=== PATIENT | female | born 1955 | race Caucasian/White ===

== ENCOUNTER → 2016-10-01 | Outpatient (CLI) | payer SELFPAY ==
[~2016-10-01] MED LIST: ENOX40IN SQ; HYDR-5688 PO
== END | disposition home or self-care (01) ==
LOC: C.LAB 11:08
PROVIDERS: ATTEND Family Medicine

== ENCOUNTER → 2016-11-09 | Outpatient (CLI) | payer BC | END | disposition home or self-care (01) | LOC: C.RDSM 08:20 | PROVIDERS: ATTEND Physical Medicine & Rehabilitation Sports Medicine | DX: S83.272D Complex tear of lateral meniscus, current injury, left knee, subsequent encounter (principal); X58.XXXD Exposure to other specified factors, subsequent encounter; M17.12 Unilateral primary osteoarthritis, left knee; M25.561 Pain in right knee ==

== ENCOUNTER → 2017-11-15 | Outpatient (CLI) | payer BC | END | disposition home or self-care (01) | LOC: C.PAPS 09:46 | PROVIDERS: ATTEND Obstetrics & Gynecology | DX: Z01.419 Encounter for gynecological examination (general) (routine) without abnormal findings (principal) ==

== ENCOUNTER → 2017-11-22 | Outpatient (CLI) | payer BC | END | disposition home or self-care (01) | LOC: C.RDSM 15:32 | PROVIDERS: ATTEND Physical Medicine & Rehabilitation Sports Medicine | DX: M17.12 Unilateral primary osteoarthritis, left knee (principal) ==

== ENCOUNTER 2021-02-03 17:10 | Inpatient (IN) ==
[2021-02-03] MEDS ORDERED: HYDROmorphone INJ 0.5 MG/0.5 ML SYR IV STA (18:57)
[2021-02-03] MEDS ORDERED: ONDANSETRON INJ 2 MG/ML 2 ML VIAL IV STA (18:59)
[2021-02-03] MEDS ORDERED: SODIUM CHLORIDE 0.9% 1000ML 1,000 ML IV SCH (19:00)
[2021-02-03 19:35] LABS: Basophils # (auto) 0.01 K/uL (0-0.2); Basophils % (auto) 0.1 %; Hematocrit (blood only) 43.8 % (37-47); Hemoglobin 15.2 g/dL (12.0-16.0); Immature Granulocytes # (auto) 0.05 K/uL (0.00-0.02); Immature Granulocytes % (auto) 0.3 %; Lymphocytes # (auto) 1.05 K/uL (1.2-3.4); Lymphocytes % (auto) 6.8 %; Mean Corpuscular Hemoglobin 31.4 pg (25-34); Mean Corpuscular Hgb Conc 34.7 g/dL (32-36); Mean Corpuscular Volume 90.5 fL (80-100); Mean Platelet Volume 10.4 fL (7.4-10.4); Monocytes # (auto) 0.51 K/uL (0.11-0.59); Monocytes % (auto) 3.3 %; Neutrophils # (auto) 13.88 K/uL (1.4-6.5); Neutrophils % (auto) 89.5 %; Platelet Count 242 K/uL (130-400); RDW Coefficient of Variation 13.3 % (11.5-14.5); Red Blood Count 4.84 M/uL (4.2-5.4)
[2021-02-03 19:52] LABS: Alanine Aminotransferase 46 U/L (12-78); Albumin Level 4.3 gm/dl (3.4-5.0); Aspartate Aminotransferase 36 U/L (15-37); BUN Creatinine Ratio 18.2 (10-20); Blood Urea Nitrogen 11 mg/dl (7-18); Carbon Dioxide 30 mmol/L (21-32); Chloride 105 mmol/L (98-107); Est GFR (African American) 111.5 ml/min; Est GFR (Non-African American) 96.2 ml/min; Glucose 130 mg/dl (70-99); Potassium 4.1 mmol/L (3.5-5.1); Sodium 138 mmol/L (136-145)
[2021-02-03 19:54] LABS: Albumin Globulin Ratio 1.1 (0.9-2); Alkaline Phosphatase 106 U/L (45-117); Bilirubin,Total 0.6 mg/dl (0.2-1); Globulin 3.9 gm/dl (2.5-4.0); Total Protein 8.2 gm/dl (6.4-8.2)
--- NOTE | 2021-02-03 20:22 | XRay Report ---
XR chest 1V portable HISTORY: 65 years-old Female Trauma acute chest trauma COMPARISON: CTA chest 07/02/2015, chest radiograph 08/20/2007 TECHNIQUE: Supine AP view of the chest FINDINGS: The cardiomediastinal and hilar silhouettes are within normal limits. No pneumothorax, pleural effusi on or overt pulmonary edema. There is a questioned 1.7 cm nodular opacity of the right upper lung. De generative changes of the shoulders and spine. IMPRESSION: 1. No acute intrathoracic abnormality. 2. Ill-defined 1.7 cm nodular opacity of the right upper lung may be artifactual or representing a pu lmonary nodule. This could be correlated with follow-up PA and lateral views of the chest. ACT 112: Negative or not required by law. The above report was generated using voice recognition software. It may contain grammatical, syntax o r spelling errors. Electronically signed by: Corbin Carson M.D. 02/03/2021 8:21 PM
--- NOTE | 2021-02-03 20:26 | XRay Report ---
XR knee RT 1 or 2V routine HISTORY: 65 years-old Female R knee pain chronic right knee pain COMPARISON: Right knee radiographs 06/12/2019 TECHNIQUE: 2 views of the right knee FINDINGS: Small to moderate right knee joint effusion. Mild to moderate medial and patellofemoral with mild lat eral compartment osteoarthritis. No acute fracture, dislocation or opaque foreign body. IMPRESSION: 1. Small to moderate joint effusion without acute fracture or dislocation. 2. Tricompartmental osteoarthritis. ACT 112: Negative or not required by law. The above report was generated using voice recognition software. It may contain grammatical, syntax o r spelling errors. Electronically signed by: Corbin Carson M.D. 02/03/2021 8:25 PM
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
[2021-02-03 22:37] LABS: Creatine Kinase 81 U/L (26-192)
[2021-02-04] MEDS ORDERED: NALOXONE HCL 0.4 MG/1 ML VIAL/CARP IV PRN (00:18)
[2021-02-04] MEDS ORDERED: MAGNESIUM HYDROXIDE SUSP 30 ML UDC PO PRN (00:18)
[2021-02-04] MEDS ORDERED: MoRPHine SULFATE 4 MG/ML 1 ML CARP\\VIAL IV PRN (00:18)
[2021-02-04] MEDS ORDERED: ACETAMINOPHEN 325 MG TAB PO PRN (00:18)
[2021-02-04] MEDS ORDERED: bisacodyL 10 MG SUPP PR PRN (00:18)
[2021-02-04] MEDS ORDERED: LORazepam 0.25 MG/0.5 ML VIAL IV PRN (00:18)
[2021-02-04 00:50] LABS: Appearance Urine Clear (Clear); Bilirubin Urine Negative (Negative); Blood Urine Negative (Negative); Color Urine Yellow; Glucose Urine UA Negative (Negative); Ketones Urine Negative (Negative); Leukocyte Esterase Urine Negative (Negative); Nitrite Urine Negative (Negative); Protein Urine Negative (Negative); Specific Gravity Urine 1.004 (1.000-1.030); Urobilinogen Urine Negative (Negative)
[2021-02-04] MEDS ORDERED: KETOROLAC TROMETHAMINE 15 MG/ML VIAL IV ONE (01:27)
[2021-02-04] MEDS: ONDANSETRON INJ 2 MG/ML 2 ML VIAL IV PRN ×3 (01:41→21:20)
[2021-02-04] MEDS: SODIUM CHLORIDE 0.9% 1000ML 1,000 ML IV SCH ×2 (01:41→20:09)
[2021-02-04] MEDS: MoRPHine SULFATE 2 MG/ML CARP IV PRN ×4 (01:45→21:20)
[2021-02-04] MEDS: LEVOTHYROXINE SODIUM 100 MCG TABLET PO SCH (05:44)
[2021-02-04 06:48] LABS: Basophils # (auto) 0.01 K/uL (0-0.2); Basophils % (auto) 0.2 %; Eosinophils # (auto) 0.05 K/uL (0-0.5); Eosinophils % (auto) 0.8 %; Hematocrit (blood only) 35.4 % (37-47); Hemoglobin 12.1 g/dL (12.0-16.0); Immature Granulocytes # (auto) 0.02 K/uL (0.00-0.02); Immature Granulocytes % (auto) 0.3 %; Lymphocytes # (auto) 1.38 K/uL (1.2-3.4); Lymphocytes % (auto) 22.3 %; Mean Corpuscular Hemoglobin 30.9 pg (25-34); Mean Corpuscular Hgb Conc 34.2 g/dL (32-36); Mean Corpuscular Volume 90.3 fL (80-100); Mean Platelet Volume 10.6 fL (7.4-10.4); Monocytes # (auto) 0.28 K/uL (0.11-0.59); Monocytes % (auto) 4.5 %; Neutrophils # (auto) 4.46 K/uL (1.4-6.5); Neutrophils % (auto) 71.9 %; Platelet Count 213 K/uL (130-400); RDW Coefficient of Variation 13.4 % (11.5-14.5); RDW Standard Deviation 44.3 fL (36.4-46.3); Red Blood Count 3.92 M/uL (4.2-5.4)
[2021-02-04 07:12] LABS: Estimated Average Glucose 100 mg/dl; Hemoglobin A1C 5.1 % (4.5-5.6)
[2021-02-04 07:14] LABS: BUN Creatinine Ratio 17.8 (10-20); Calcium 8.2 mg/dl (8.5-10.1); Creatinine Clr Calc Pharmacy 129.4 ml/min; Est GFR (African American) 127.7 ml/min; Est GFR (Non-African American) 110.2 ml/min; Potassium 3.6 mmol/L (3.5-5.1)
--- NOTE | 2021-02-04 07:59 | XRay Report ---
XR chest 2V PA/lateral CLINICAL HISTORY: abn pcxr COMPARISON STUDY: February 03, 2021 FINDINGS: No pneumothorax. No pleural effusion. No large infiltrates or consolidative lesions are seen. Recently seen nodular opacity at the right up per lung appear less conspicuous on current exam and might represent superimposition of structures. S kinfold is projecting to the anatomical region of the right lung and right upper hemiabdomen. Cardiomediastinal silhouette is within normal limits in size. No significant pulmonary vascular congestion.. Osseous structures: Mild degenerative changes of the spine. IMPRESSION: 1. No large infiltrates or consolidative lesions are seen. 2. Recently seen nodular opacity at the right upper lung region appear less conspicuous than on prio r study and might be related to superimposition of structures. Please correlate above-mentioned findi ngs with prior history of pulmonary abnormalities. Please note that plain radiography has limited anneliese lity for pulmonary nodule evaluation. ACT 112: Negative or not required by law. The above report was generated using voice recognition software. It may contain grammatical, syntax o r spelling errors. Electronically signed by: Terri Davison DO 02/04/2021 7:58 AM
--- NOTE | 2021-02-04 08:04 | XRay Report ---
XR hip RT 1V CLINICAL HISTORY: fracture, pls do shoot thru lateral right hip COMPARISON: February 03, 2021 at 20:08 hours DISCUSSION: Recently seen fracture of the right hip is not well visualized due to overlying soft tissue and clot [place]. IMPRESSION: As above. ACT 112: Negative or not required by law. The above report was generated using voice recognition software. It may contain grammatical, syntax o r spelling errors. Electronically signed by: Terri Davison DO 02/04/2021 8:03 AM
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
--- NOTE | 2021-02-04 13:45 | Anesthesiology Consultation ---
Date of Service February 04, 2021 Assessment & Plan (1) Encounter for pre-operative examination: Chart Review Chart Review: Acceptable Risk for Surgery and Patient NOT seen in Pre Admission Testing Consults Requested none History Surgery Operation Date: 02/04/21 07:00 Proposed Procedures p Right Hip Cannulated Screws Versus - Jacob Justin MD s Hemiarthroplasty - Jacob Justin MD Height/Weight Height: 5 ft 5 in Weight: 62.8 kg Allergies Allergy/AdvReac Type Severity Reaction Status Date / Time No Known Allergies Allergy Mild Verified 02/03/21 19:57 Medications Home Medications Medication Instructions Recorded Confirmed Last Taken estradiol 1 g PV 2XWK #42.5 gm 11/12/20 02/03/21 02/02/21 cholecalciferol (vitamin D3) 125 mcg PO QPM 12/10/20 02/03/21 12/05/20 [Vitamin D3] levothyroxine [Synthroid] 100 mcg PO QAM 02/03/21 02/03/21 02/03/21 vitamins A,C,V-[id number] [Eye 2 tab PO QAM 02/03/21 02/03/21 02/01/21 Multivitamin] Active Medications Generic Name Dose Route Start Last Admin Trade Name Freq PRN Reason Stop Dose Admin Sodium Chloride 1,000 mls @ 60 mls/hr 02/04/21 00:18 02/04/21 01:41 Nss 1000ml IV 03/06/21 00:17 60 mls/hr .[id number] NEPTALI Administration Levothyroxine Sodium 100 mcg 02/04/21 06:30 02/04/21 05:44 Levothyroxine Sodium 100 Mcg Tablet PO 03/06/21 06:29 100 mcg DAILYBB NEPTALI Administration Morphine Sulfate 2 mg 02/04/21 01:36 02/04/21 09:49 Morphine Sulfate 2 Mg/Ml Carp IV 02/18/21 01:35 2 mg Q4H PRN Administration Pain Ondansetron HCl 4 mg 02/04/21 01:08 02/04/21 09:50 Ondansetron Inj 2 Mg/Ml 2 Ml Vial IV 03/06/21 01:07 4 mg Q6H PRN Administration nv Past Medical History Medical History Colon polyps DVT (deep venous thrombosis) IN HER 20'S WITH BCP'S H/O therapeutic radiation Osteoporosis Temporomandibular joint disorder BILAT-LOCKS WHEN OUTSIDE IN THE COLD Thyroid cancer Past Family History Family History Father No problems noted. Mother No problems noted. Sister Breast cancer Father Cancer ESOPHAGEAL CANCER Grandmother Breast cancer Past Surgical History Surgical History H/O colonoscopy H/O hernia repair B/L inlingual 2018 [place] History of anesthesia reaction PONV AND LOW BP POST OP 2019 WITH HERNIA REPAIRS History of arthroscopy LEFT KNEE MENISCUS REPAIR 2016 History of colonoscopy History of thyroid surgery 2017 S/P laparoscopic cholecystectomy (12/19/20) Laparoscopic Cholecystectomy; enterolysis - Contreras Martinez, DO Social History Smoking Status: Never smoker Hx Alcohol Use: No alcohol intake frequency: other Hx Substance Use: No Physical Exam Vital Signs Last Vital Signs Temp 37.4 C 02/04/21 11:25 Pulse 62 02/04/21 11:25 Resp 16 02/04/21 11:25 BP 105/56 L 02/04/21 11:25 Pulse Ox 94 02/04/21 11:25 Testing Laboratory Results 02/04/21 05:57 02/04/21 05:57 Hemoglobin A1c 5.1 % (4.5-5.6) 02/03/21 19:24 Urine Color Yellow 02/04/21 00:24 Urine Appearance Clear (Clear) 02/04/21 00:24 Urine pH 7.0 (4.5-7.5) 02/04/21 00:24 Ur Specific [place] 1.004 (1.000-1.030) 02/04/21 00:24 Urine Protein Negative (Negative) 02/04/21 00:24 Urine Glucose (UA) Negative (Negative) 02/04/21 00:24 Urine Ketones Negative (Negative) 02/04/21 00:24 Urine Nitrite Negative (Negative) 02/04/21 00:24 Ur Leukocyte Esterase Negative (Negative) 02/04/21 00:24 Blood Type A Positive 02/04/21 05:57 Antibody Screen NEGATIVE 02/04/21 05:57 Other Testing Electrocardiogram Date: 12/12/20 Findings: + SB @ (54bpm) *unconfirmed
[2021-02-04] MEDS ORDERED: PROPOFOL IV EMULSION 10 MG/ML 20 ML VIAL IV ONE ×3 (15:09→17:41)
[2021-02-04] MEDS ORDERED: LIDOCAINE 2% 2 ML VIAL/AMP(20MG/ML) INFIL ONE (15:09)
[2021-02-04] MEDS ORDERED: MIDAZOLAM HCL 1 MG/ML 2ML VIAL ONE (15:10)
[2021-02-04] MEDS ORDERED: fentaNYL citrate 100 MCG/2 ML VIAL ONE (15:10)
[2021-02-04] MEDS ORDERED: BUPIVACAINE 0.5 % 5 MG/1 ML PF 10ML VIAL ONE (15:16)
[2021-02-04] MEDS ORDERED: THROMBIN FOR SOLN 20000 UNIT KIT ONE (15:26)
[2021-02-04] MEDS ORDERED: LIDOCAINE 1% LOCAL 20 ML VIAL ONE (15:26)
[2021-02-04] MEDS ORDERED: BUPIVACAINE 0.5 % 5 MG/1 ML MPF 30ML VIAL ONE (15:26)
[2021-02-04] MEDS ORDERED: ATROPINE SULFATE 0.1 MG/ML 10ML SYR IV PRN (15:53)
[2021-02-04] MEDS ORDERED: ePHEDrine sulfate 50 MG/ML AMP IV PRN (15:53)
[2021-02-04] MEDS ORDERED: fentaNYL citrate 100 MCG/2 ML VIAL IV PRN (15:53)
[2021-02-04] MEDS ORDERED: ONDANSETRON INJ 2 MG/ML 2 ML VIAL IV PRN (15:53)
[2021-02-04] MEDS ORDERED: KETAMINE 50 MG/5 ML SYRINGE ONE (15:58)
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
--- NOTE | 2021-02-04 18:59 | Anesthesiology Progress Note ---
Date of Service February 04, 2021 Anesthesia Post Procedure Vital Signs Vital Signs: Temp Pulse Pulse Pulse Resp BP BP 02/04/21 18:50 72 15 101/49 L 02/04/21 18:40 74 20 105/69 02/04/21 18:32 97.3 F L 80 16 123/49 L 02/04/21 15:43 99.9 F H 66 18 121/48 L 02/04/21 15:25 99.7 F H 61 16 100/58 L 02/04/21 11:25 99.3 F 62 16 105/56 L 02/04/21 07:40 99.3 F 65 24 103/62 02/04/21 04:18 02/04/21 00:30 99.0 F 68 16 114/78 02/04/21 00:25 99.0 F 68 18 113/71 02/03/21 23:30 65 19 119/54 L 02/03/21 23:00 76 22 138/61 02/03/21 22:57 66 24 02/03/21 22:01 68 17 02/03/21 22:00 66 18 135/56 L 02/03/21 21:31 68 18 02/03/21 21:30 71 16 132/50 L 02/03/21 21:01 72 14 02/03/21 21:00 71 18 143/47 H 02/03/21 20:31 68 15 02/03/21 20:30 69 21 142/54 H 02/03/21 20:01 67 14 02/03/21 20:00 66 20 139/60 02/03/21 19:31 68 15 02/03/21 19:30 68 18 136/71 02/03/21 19:21 72 18 02/03/21 19:16 71 20 134/72 Pulse Ox Pulse Ox 02/04/21 18:50 97 02/04/21 18:40 96 02/04/21 18:32 96 02/04/21 15:43 94 02/04/21 15:25 93 02/04/21 11:25 94 02/04/21 07:40 95 95 02/04/21 04:18 98 02/04/21 00:30 98 02/04/21 00:25 98 98 02/03/21 23:30 98 02/03/21 23:00 97 02/03/21 22:57 97 02/03/21 22:01 99 02/03/21 22:00 97 02/03/21 21:31 99 02/03/21 21:30 98 02/03/21 21:01 98 02/03/21 21:00 98 02/03/21 20:31 97 02/03/21 20:30 97 02/03/21 20:01 98 02/03/21 20:00 98 02/03/21 19:31 99 02/03/21 19:30 98 02/03/21 19:21 100 02/03/21 19:16 98 Pain Intensity Right Hip: Pain Intensity: 2 Transfer of Care Handoff Completed per policy Notes Mental Status: alert / awake / arousable and participated in evaluation Patient Amnestic to Procedure: Yes Nausea / Vomiting: adequately controlled Pain: adequately controlled Airway Patency, RR, SpO2: stable & adequate BP & HR: stable & adequate Hydration State: stable & adequate Neuraxial Anesthesia: was administered and sensory block is resolving Anesthetic Complications: no major complications apparent and Pt Satisfied with anesthetic care
[2021-02-04] MEDS ORDERED: SODIUM CHLORIDE 0.9% 1000ML 1,000 ML IV ONE (20:05)
[2021-02-04] MEDS: CHOLECALCIFEROL 1,000 UNITS 25 MCG TAB PO SCH (20:21)
--- NOTE | 2021-02-04 22:35 | Fluoroscopy Report ---
INTRAOPERATIVE RADIOGRAPHS CLINICAL HISTORY: Open reduction and internal fixation of the right proximal femur. Fluoroscopy time: 148 seconds. FINDINGS: 2 spot fluoroscopic views of the right proximal femur are correlated with radiographs dated 02/03/2021. 3 cortical lag screws have been placed transfixing a subcapital fracture. Near-anatomic al ignment is maintained. The orthopedic hardware appears intact. IMPRESSION: Intraoperative images from open reduction and internal fixation of the right proximal fem ur as above. Electronically signed by: Igor Mike M.D. 02/04/2021 10:33 PM
[2021-02-05] MEDS: ceFAZolin 1000MG 1,000 MG/7.5 ML SYR IV SCH ×2 (01:09→07:38)
[2021-02-05] MEDS: MoRPHine SULFATE 2 MG/ML CARP IV PRN ×4 (01:42→17:08)
--- NOTE | 2021-02-05 05:48 | Electrocardiogram Report ---
Test Reason : Blood Pressure : / mmHG Vent. Rate : 067 BPM Atrial Rate : 067 BPM P-R Int : 144 ms QRS Dur : 086 ms QT Int : 408 ms P-R-T Axes : 060 000 028 degrees QTc Int : 431 ms Normal sinus rhythm Normal ECG When compared with ECG of 12-DEC-2020 08:45, No significant change was found Confirmed by Darien Knox ([id number]) on 02/05/2021 5:47:49 AM Referred By: REFERRED SELF Confirmed By:Darien Knox
[2021-02-05] MEDS: LEVOTHYROXINE SODIUM 100 MCG TABLET PO SCH (06:22)
[2021-02-05] MEDS: ONDANSETRON INJ 2 MG/ML 2 ML VIAL IV PRN (06:40)
[2021-02-05 06:42] LABS: Basophils # (auto) 0.02 K/uL (0-0.2); Basophils % (auto) 0.3 %; Eosinophils # (auto) 0.04 K/uL (0-0.5); Eosinophils % (auto) 0.5 %; Hemoglobin 10.9 g/dL (12.0-16.0); Immature Granulocytes # (auto) 0.01 K/uL (0.00-0.02); Immature Granulocytes % (auto) 0.1 %; Lymphocytes # (auto) 1.24 K/uL (1.2-3.4); Lymphocytes % (auto) 16.1 %; Mean Corpuscular Hemoglobin 30.4 pg (25-34); Mean Corpuscular Volume 92.2 fL (80-100); Mean Platelet Volume 10.6 fL (7.4-10.4); Monocytes # (auto) 0.35 K/uL (0.11-0.59); Monocytes % (auto) 4.6 %; Neutrophils # (auto) 6.02 K/uL (1.4-6.5); Neutrophils % (auto) 78.4 %; Platelet Count 200 K/uL (130-400); RDW Coefficient of Variation 13.4 % (11.5-14.5); RDW Standard Deviation 45.1 fL (36.4-46.3); Red Blood Count 3.58 M/uL (4.2-5.4); White Blood Count 7.68 K/uL (4.8-10.8)
[2021-02-05 07:23] LABS: BUN Creatinine Ratio 14.9 (10-20); Calcium 7.7 mg/dl (8.5-10.1); Creatinine Clr Calc Pharmacy 132.8 ml/min; Est GFR (African American) 128.8 ml/min; Est GFR (Non-African American) 111.2 ml/min; Potassium 3.6 mmol/L (3.5-5.1)
[2021-02-05] MEDS: ENOXAPARIN INJ 40 MG/0.4 ML SYR SQ SCH (07:47)
[2021-02-05] MEDS: CEROVITE ADV FORMULA TAB PO SCH ×2 (07:49→08:00)
--- NOTE | 2021-02-05 11:01 | Progress Notes ---
DATE: 02/05/2021 SUBJECTIVE: Rani is out of bed, in the chair. She is awake and alert. She does note pain in her thigh when she moves her leg and sometimes some spasms. Otherwise, she is doing well. OBJECTIVE: VITAL SIGNS: She is afebrile. Her vital signs are stable. Her urine output is adequate. EXTREMITIES: Physical examination demonstrates some tenderness of the thigh, but no significant swel ling or tenseness. The dressing is clean and dry. She cannot extend her knee secondary to thigh dis comfort. She does have 5/5 ankle and toe plantar flexion, dorsiflexion, and foot eversion strength. Has normal sensation and a 1+ posterior tibial pulse. Swelling is minimal. LABORATORY DATA: White count 7, hemoglobin 11, hematocrit 33, platelets are 200. PRP noted. Vitamin D level is 58, checked back in November. IMPRESSION: Postoperative day #1, status post in situ percutaneous screws for a valgus impacted nond isplaced femoral neck fracture of the right hip. PLAN: We discussed rehabilitation and milestones. She will supply her DEXA scan done last year. PT today. Partial weightbearing. She is on Lovenox for DVT prophylaxis. We will go ahead and discont inue her Nunez catheter and also order a femur x-ray to evaluate any other sources of her thigh disco mfort. I think that this is coming from her hip. She has received a routine course of postoperative IV antibiotics. Her pain is well controlled. Plan at this point is likely home with home health [facility] and PT. Job ID: [id number]
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
[2021-02-05] MEDS: FAMOTIDINE 10 MG TABLET PO SCH (21:04)
[2021-02-05] MEDS: CHOLECALCIFEROL 1,000 UNITS 25 MCG TAB PO SCH (21:04)
[2021-02-05] MEDS: traMADol HCL 50 MG TABLET PO PRN (21:04)
[2021-02-06] MEDS: traMADol HCL 50 MG TABLET PO PRN ×2 (05:59→21:13)
[2021-02-06] MEDS: LEVOTHYROXINE SODIUM 100 MCG TABLET PO SCH (06:00)
[2021-02-06] MEDS: ONDANSETRON INJ 2 MG/ML 2 ML VIAL IV PRN (06:00)
[2021-02-06] MEDS: ENOXAPARIN INJ 40 MG/0.4 ML SYR SQ SCH (09:25)
[2021-02-06] MEDS: CEROVITE ADV FORMULA TAB PO SCH (09:26)
[2021-02-06] MEDS: FAMOTIDINE 10 MG TABLET PO SCH ×2 (09:27→21:13)
[2021-02-06] MEDS ORDERED: POLYETHYLENE (MIRALAX) 17 GM PACK PO PRN (12:14)
[2021-02-06] MEDS ORDERED: MAGNESIUM HYDROXIDE SUSP 30 ML UDC PO PRN (12:15)
[2021-02-06] MEDS: LIDOCAINE 5% 1 PATCH TD SCH (13:23)
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
--- NOTE | 2021-02-06 14:01 | Orthopedic Progress Note ---
Date of Service February 06, 2021 Assessment & Plan (1) Fracture of femoral neck, right, closed: Continue out of bed - PWB RLE Ice and elevation as needed. Continue PT/OT Lovenox 40mg SQ daily for 4 weeks after surgery. Obtain CBC weekly while on Lovenox. Regular diet. Dressings changed today. Dr. Justin present for today's visit. Okay from orthopedic standpoint for discharge to her home when medically stable - patient wishes to be discharged on Wednesday. (2) Quadriceps contusion: Continue ice Encouraged cotinued ROM of right hip and knee Allowed for straight leg raises, quad sets and PT exercises as instructed. This should improve with time Lidoderm patch PRN Sonny bandage to thigh as needed for comfort. Will continue to follow as outpatient. Femur xrays show no fracture. Admission and Anticipated Discharge Date Admission Date: February 03, 2021 Subjective Patient is resting in bed. No significant groin pain, but pain in right quad. Has lidoderm patch in place. States that she is able to move her leg and bend her knee a little better today than yesterday. Has been applying ice. Able to ambulate, but pain with weight bearing in the front of her thigh. No posterior thigh pain. Physical Exam Physical Exam: Right hip incision clean, dry and intact. Emerald retained and intact. Mild-moderate right thigh and leg edema. Full ankle ROM without pain. Distal sensation and pulses normal. Able to flex her knee to about 50-60 degrees and then extend her right knee and keep in the air - does reproduce quad pain but able to hold independently. NOntender at right knee or patella. Distal quad tendon intact. Tenderness with palpation of anterior thigh/mid- proximal quadriceps muscle. Nontender right ischial tuberosity. NO evidence of seroma or hematoma right thigh. Also some ecchymosis developing throughout thig h. Results & Data ([facility]) Vital Signs (Past 12 Hours) Vital Signs Temp Pulse Resp BP Pulse Ox Pulse Ox 02/06/21 07:37 37.1 C 63 16 119/69 95 02/06/21 04:05 92 Diagnostic Findings XR femur RT 2V routine HISTORY: 65 years-old Female pain acute fracture of the right femur. Status post ORIF COMPARISON: Right hip radiograph 02/03/2021 TECHNIQUE: 2 views the right femur FINDINGS: Status post placement of 3 elongated cannulated screws within the right femoral neck fixating the acute transcervical fracture. There is persistent mild impaction without placement. Alignment appears unchanged. Lateral skin emerald are present along with expected postoperative soft tissue swelling and deep tissue air. No unexpected opaque foreign bodies. Osteoarthritis of the right knee. Moderate knee joint effusion. IMPRESSION: Status post ORIF of the acute right femoral neck fracture with expected postoperative changes.
[2021-02-06] MEDS: CHOLECALCIFEROL 1,000 UNITS 25 MCG TAB PO SCH (21:10)
[2021-02-07] MEDS: LEVOTHYROXINE SODIUM 100 MCG TABLET PO SCH (05:55)
[2021-02-07] MEDS: FAMOTIDINE 10 MG TABLET PO SCH (09:45)
[2021-02-07] MEDS: ENOXAPARIN INJ 40 MG/0.4 ML SYR SQ SCH (09:45)
[2021-02-07] MEDS: LIDOCAINE 5% 1 PATCH TD SCH (09:49)
[2021-02-07] MEDS: CEROVITE ADV FORMULA TAB PO SCH (09:49)
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
--- NOTE | 2021-02-07 16:15 | Progress Notes ---
Doing well. Improved mobility. Less quad pain and better function. She has done well with physical therapy. No labs today. Afebrile. Vital signs are stable. She is stable for discharge. We discus sed followup pain medication, what to come back for, DVT prophylaxis, home health, PT, nursing and wo und care. Job ID: [id number]
[2021-02-07] MEDS: MoRPHine SULFATE 2 MG/ML CARP IV PRN (16:57)
[2021-02-07] MEDS: ONDANSETRON INJ 2 MG/ML 2 ML VIAL IV PRN (16:59)
== END 2021-02-07 17:15 | disposition home health service (06) | DRG 482 ==
LOC: ED 17:10 → 3E 22:13 → SUATTDRO 22:13 → 3E 23:50

== ENCOUNTER 2024-08-08 22:18 | Observation (INO) ==
[2024-08-08] MEDS: METOPROLOL TARTRATE 1 MG/ML VIAL IV STA ×3 (22:44→23:32)
--- NOTE | 2024-08-08 22:44 | Emergency Department Note ---
History of Present Illness General Chief complaint: Cardiac Assessment Stated complaint: PT IN AFIB, [place] 190 Time Seen by Provider: 08/08/24 22:27 History of Present Illness This 69-year-old female with a recent diagnosis of A-fib on metoprolol and Eliquis since June presents the ER complaining of racing heart. Patient states when she was in [place] last month her heart rate dropped to the 30s and she called her legislative assistant and told her to cut back on her metoprolol. Patient states for the past week she has been sick and has been taking her Dulera and then today started Augmentin. She states she felt like her heart was racing and was concerned she is back in A-fib and came in. She states she has been symptomatic for the past 4 hours. Patient denies fever, chills, cough, congestion, flulike illness. She has not missed any doses of her Eliquis. No recent prednisone. Home Medications Medication Instructions Recorded Confirmed Type estradiol 0.01% (0.1 mg/gram) 1 g vaginal 2XWK #42.5 grams 12/09/23 08/09/24 Rx vaginal cream amoxicillin 875 mg-potassium 1 tab PO AMHS 08/08/24 08/08/24 History clavulanate 125 mg tablet mometasone-formoterol HFA 100 2 puff inhalation AMHS 08/08/24 08/09/24 History mcg-5 mcg/actuation aerosol inhaler (Dulera) apixaban 5 mg tablet (Eliquis) 5 mg PO AMHS 08/09/24 08/09/24 History azelastine 137 mcg (0.1 %) nasal 1 spray intranasal BID PRN Allergy 08/09/24 08/09/24 History spray Symptoms azithromycin 500 mg tablet 500 mg PO UD PRN RESCUE KIT 08/09/24 08/09/24 History cholecalciferol (vitamin D3) 50 50 mcg PO DAILY 08/09/24 08/09/24 History mcg (2,000 unit) tablet (Vitamin D3) levothyroxine 125 mcg tablet See Rx Instructions .Route .COMPLEX 08/09/24 08/09/24 History (Synthroid) melatonin 3 mg tablet 3 mg PO HS PRN Sleep 08/09/24 08/09/24 History metoprolol tartrate 25 mg tablet 12.5 mg PO AMHS 08/09/24 08/09/24 History mometasone 50 mcg/actuation HFA 1 inh inhalation UD 08/09/24 08/09/24 History aerosol inhaler (Asmanex HFA) prednisone 10 mg tablet 10 mg PO UD PRN RESCUE KIT 08/09/24 08/09/24 History vitamins A,C,U-unrk-pmoegd 4,296 2 cap PO QAM 08/09/24 08/09/24 History mcg-226 mg-90 mg capsule (PreserVision AREDS) Allergies Allergy/AdvReac Type Severity Reaction Status Date / Time doxycycline AdvReac Unknown possible Verified 12/09/23 10:50 cause of eosinophilic asthma Past Med/Surg History Problem List (Updated 08/08/24 @ 23:55 by Corinne Choe PA-C) Atrial fibrillation/flutter (Acute) Globus sensation Small intestinal bacterial overgrowth Diarrhea GERD (gastroesophageal reflux disease) Routine gynecological examination Quadriceps contusion Knee pain, right Fracture of femoral neck, right, closed Pain of right knee after injury (Acute) Closed intertrochanteric fracture of right femur (Acute) Encounter for pre-operative examination Pre-op evaluation Medical History Cardiac murmur Nausea and vomiting after administration of anesthetic agent Presence of pessary Uterine prolapse History of COVID-19 Eosinophilic asthma Chronic hoarseness Rectocele Osteoporosis Temporomandibular joint disorder DVT (deep venous thrombosis) H/O therapeutic radiation Colon polyps Thyroid cancer Surgical History S/P hardware removal History of laryngoscopy History of total right hip replacement History of surgery on extremity S/P laparoscopic cholecystectomy (12/19/20) History of arthroscopy History of colonoscopy History of anesthesia reaction H/O hernia repair History of thyroid surgery S/P left knee surgery Family History Father No problems noted. Mother No problems noted. 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 How many Children do You have: 1 Feels Safe at Home: Yes Assistive Devices: Contacts and Glasses Review of Systems A total of 10 systems reviewed and were otherwise negative Physical Exam Vital Signs Vital Signs - 24 hr 08/08/24 22:20 08/08/24 22:35 08/08/24 22:44 Temperature 36.5 C Temperature Source Temporal Artery Scan Pulse Rate 103 H 142 H 136 H Pulse Rhythm Respiratory Rate 16 Respiratory Effort / Characteristics Non-Labored Spontaneous Respiratory Depth Normal Respiratory Pattern Regular Blood Pressure 130/61 112/73 Blood Pressure Mean 84 Pulse Oximetry 97 Oxygen Delivery Method Room Air Sepsis Recent Fever Within 48 Hours No Sepsis New/Unexplained Change in Mental Status No Sepsis Action Taken by Nursing No Action Required 08/08/24 22:46 08/08/24 22:48 08/08/24 22:48 Temperature Temperature Source Pulse Rate 123 H 127 H Pulse Rhythm Regular Regular Respiratory Rate 18 16 Respiratory Effort / Characteristics Respiratory Depth Respiratory Pattern Blood Pressure Blood Pressure Mean Pulse Oximetry 97 98 Oxygen Delivery Method Room Air Room Air Sepsis Recent Fever Within 48 Hours Sepsis New/Unexplained Change in Mental Status Sepsis Action Taken by Nursing 08/08/24 22:48 08/08/24 23:00 08/08/24 23:32 Temperature Temperature Source Pulse Rate 146 H 133 H Pulse Rhythm Respiratory Rate Respiratory Effort / Characteristics Respiratory Depth Respiratory Pattern Blood Pressure 118/94 112/67 Blood Pressure Mean Pulse Oximetry 100 Oxygen Delivery Method Room Air Sepsis Recent Fever Within 48 Hours Sepsis New/Unexplained Change in Mental Status Sepsis Action Taken by Nursing 08/09/24 00:20 Temperature Temperature Source Pulse Rate 142 H Pulse Rhythm Respiratory Rate Respiratory Effort / Characteristics Respiratory Depth Respiratory Pattern Blood Pressure 118/80 Blood Pressure Mean Pulse Oximetry Oxygen Delivery Method Sepsis Recent Fever Within 48 Hours Sepsis New/Unexplained Change in Mental Status Sepsis Action Taken by Nursing VITALS: Vitals are noted on the nurse's note and reviewed by myself. Vital signs tachycardic GENERAL: Pleasant female, in no acute distress, nondiaphoretic, well-developed well-nourished. SKIN: Capillary reflex less than 2 seconds. HEENT: Normocephalic. PERRLA. EOMI. Nares patent. Mucous membranes moist. Neck is supple without nuchal rigidity. HEART: Tachycardic irregularly irregular LUNGS: Clear to auscultation bilaterally without wheezes, rales or rhonchi. No retractions or accessory muscle use. ABDOMEN: Positive bowel sounds x 4. Normal tympanic percussion. Soft, nontender, without masses or organomegaly. Patterson sign negative. No guarding or rebound tenderness. no CVA tenderness MUSCULOSKELETAL: No gross musculoskeletal defects. NEURO: Patient was alert and oriented to person place and time. No focal neurological deficits. Course Administered Medications Discontinued Medications Diltiazem HCl (Diltiazem Hcl 5 Mg/Ml 5 Ml Vial) 10 mg IV NOW STA Stop: 08/08/24 23:55 Last Admin: 08/09/24 00:01 Dose: 10 mg Documented By: ALEENA Co-signed By: JASPER Sodium Chloride (Nss) 500 mls @ 999 mls/hr IV .Q31M ONE Stop: 08/08/24 23:14 Last Infusion: 08/08/24 23:26 Dose: Infused Documented By: Admin: 08/08/24 22:46 Dose: 999 mls/hr Documented By: RADHA Metoprolol Tartrate (Metoprolol Tartrate 1 Mg/Ml Vial) 5 mg IV NOW STA Stop: 08/08/24 22:38 Last Admin: 08/08/24 22:44 Dose: 5 mg Documented By: [facility] Metoprolol Tartrate (Metoprolol Tartrate 1 Mg/Ml Vial) 5 mg IV NOW STA Stop: 08/08/24 22:52 Last Admin: 08/08/24 23:00 Dose: 5 mg Documented By: [facility] Metoprolol Tartrate (Metoprolol Tartrate 1 Mg/Ml Vial) 5 mg IV NOW STA Stop: 08/08/24 23:30 Last Admin: 08/08/24 23:32 Dose: 5 mg Documented By: SERGO Critical Care Time Critical Care Time: Yes Total Critical Care Time: 35 I have personally spent 35 minutes of critical care time in the direct management of this patient. This includes bedside care, interpretation of diagnostic studies, and testing, discussion with consultants, patient, and family members, and other required patient management activities. This 35 minutes is in excess of all separately billable procedures. Medical Decision Making Medical Records Attestation: I reviewed the patient's medical records. Home Medications Current Medication List: was personally reviewed by me Laboratory Data Attestation: I reviewed the patient's lab results. 08/08/24 22:40 08/08/24 23:50 Lab Results 08/08/24 08/08/24 Range/Units 22:40 23:50 WBC 9.06 (4.8-10.8) K/ul RBC 4.75 (4.20-5.40) M/uL Hgb 14.2 (12.0-16.0) g/dl Hct 41.5 (37.0-47.0) % MCV 87.4 (80.0-100.0) fL MCH 29.9 (25.0-34.0) pg MCHC 34.2 (32.0-36.0) g/dL RDW Std Deviation 40.0 (36.4-46.3) fL RDW Coeff of Vladimir 12.5 (11.5-14.5) % Plt Count 308 (130-400) K/uL MPV 9.8 (9.4-12.4) fL Immature Gran % (Auto) 0.2 % Neut % (Auto) 55.0 % Lymph % (Auto) 31.8 % Reagan % (Auto) 8.1 % Eos % (Auto) 4.0 % Baso % (Auto) 0.9 % Neut # (Auto) 4.99 (1.40-6.50) K/uL Lymph # (Auto) 2.88 (1.20-3.40) K/uL Reagan # (Auto) 0.73 H (0.11-0.59) K/uL Eos # (Auto) 0.36 (0.00-0.50) K/uL Baso # (Auto) 0.08 (0.00-0.20) K/uL Immature Gran # (Auto) 0.02 (0.01-0.20) K/uL PT Cancelled INR Cancelled APTT Cancelled PTT Ratio Cancelled Sodium TNP 140 Potassium TNP 4.1 Chloride 103 (98-107) mmol/L Carbon Dioxide 28 (21-32) mmol/L Anion Gap TNP BUN 12 (6-23) mg/dl Creatinine 0.53 L (0.6-1.2) mg/dl Est Cr Clr Drug Dosing 94.5 ml/min eGFR 100.05 BUN/Creatinine Ratio 22.6 H (10-20) Glucose 98 (70-99(Fasting)) mg/dl Calcium 9.0 (8.6-10.3) mg/dl Magnesium TNP 2.0 Total Bilirubin 0.5 (0.2-1.0) mg/dl AST TNP 22 ALT 21 (7-52) U/L Alkaline Phosphatase TNP 73 Troponin I High Sens 4.5 (0-14) pg/ml Total Protein 7.9 7.0 (6.0-8.3) gm/dl Albumin TNP 3.9 Globulin TNP 3.1 Albumin/Globulin Ratio TNP 1.3 Lipase 38 (11-82) U/L TSH 3.026 (0.300-4.500) uIu/ml Imaging Data Attestation: I personally reviewed and interpreted this imaging study as follows: MDM Narrative Prior records/ancillary studies reviewed. Triage Nursing notes reviewed. Additional history obtained from family. The patient's history was concerning for palpitations. Differential diagnosis: Etiologies such as premature contractions, electrolyte abnormality, cardiac dysrhythmia, thyroid dysfunction, pulmonary embolism, infection, gastrointestinal, as well as others were entertained. Physical examination: Benign as above. ER treatment provided: Lopressor, IV fluids Cardizem On reassessment the patient felt better. Diagnostic interpretation by me: An order was placed for continuous cardiac monitoring. The monitor shows a rate of 60-1 70 with a A-fib/a flutter rhythm per my interpretation. #1 the electrocardiogram was ordered for palpitaions ECG: Irregularly irregular ventricular rate 136. A flutter/A-fib RVR independently interpreted by myself #2 EKG ordered for normal sinus EKG: Normal sinus, normal intervals, no acute ST-T wave changes, impression sinus bradycardia independently interpreted by myself The labs Independently Interpreted by myself revealed negative troponin Euthyroid Imaging studies: Chest x-ray with no acute consolidation, pneumothorax or free air per my independent termination Consultation: A consultation was placed with the hospitalist. The case was discussed and diagnostics were reviewed. The patient was evaluated in the ER for further treatment. This appears to be consistent with a flutter and A-fib with RVR. Patient was given multiple rounds of meds with minimal improvement of her heart rate. She is agreeable to treatment plan admission. Medicine was consulted. By the evaluation outlined above emergent etiologies such as electrolyte abnormality, thyroid dysfunction, pulmonary embolism, infection, as well as others were deemed relatively unlikely. After the patient was already admitted, she finally did convert. Repeat EKG shows sinus bradycardia per my independent interpretation. The pt informed about the findings as listed above. All questions were answered and pleased with the treatment. The chart was completed utilizing [employer] voice recognition software. Grammatical errors, random word insertions, pronoun errors, and incomplete sentences are an occassional consequence of this system due to software limitations, ambient noise, and hardware issues. Any formal questions or concerns about the content, text, or information contained within the body of this dictation should be directly addressed to the physician assistant operator for clarification. Impression & Plan Atrial fibrillation/flutter Discharge Plan Visit Data Chief Complaint: Cardiac Assessment Stated Complaint: PT IN AFIB, HEAT REAT 190 ED Provider: Peter Rubio ED Midlevel Provider: Corinne Choe Discharge Problem: Atrial fibrillation/flutter Patient Disposition: Admitted As Inpatient Condition: Good Forms Stand Alone Forms: My [facility] [employer] Prescriptions Prescriptions: No Action estradiol 0.01 % (0.1 mg/gram) cream 1 g PV 2XWK Qty: 42.5 3RF Rx Instructions: Wednesday and amoxicillin-pot clavulanate 875-125 mg tablet 1 tab PO AMHS Rx Instructions: take for 10 days starting 08/07/24 ending 08/17/24 Dulera 100-5 mcg/actuation HFA aerosol inhaler 2 puff INHALATION AMHS azelastine 137 mcg (0.1 %) spray,non-aerosol 1 spray INTRANASAL BID PRN (Reason: Allergy Symptoms) metoprolol tartrate 25 mg tablet 12.5 mg PO AMHS Asmanex HFA 50 mcg/actuation HFA aerosol inhaler 1 inh INHALATION UD Rx Instructions: new order and has not picked up from pharmacy yet PreserVision AREDS 4,296 mcg-226 mg-90 mg Capsule 2 cap PO QAM Eliquis 5 mg tablet 5 mg PO AMHS cholecalciferol (vitamin D3) [Vitamin D3] 50 mcg (2,000 unit) Tablet 50 mcg PO DAILY levothyroxine [Synthroid] 125 mcg tablet See Rx Instructions .ROUTE .COMPLEX Rx Instructions: 1 tablet daily Wed-Wed, 1/2 tablet on sundays BRAND SPECIFIC melatonin 3 mg Tablet 3 mg PO HS PRN (Reason: Sleep) prednisone 10 mg tablet 10 mg PO UD PRN (Reason: RESCUE KIT) Rx Instructions: TAKE 2 TABLETS IN AM WITH MEALS X 5 DAYS, THEN 1 TABLET DAILY WITH MEALS X 5 DAYS, THEN 1/2 TABLET DAILY WITH MEAL FOR 5 DAYS, THEN STOP azithromycin 500 mg tablet 500 mg PO UD PRN (Reason: RESCUE KIT) Referrals Referrals: Pat Hatfield DO [Primary Care Provider] -
[2024-08-08] MEDS: SODIUM CHLORIDE 0.9% 500 ML IV ONE (22:46)
[2024-08-08 23:02] LABS: Basophils # (auto) 0.08 K/uL (0.00-0.20); Basophils % (auto) 0.9 %; Eosinophils # (auto) 0.36 K/uL (0.00-0.50); Hematocrit (blood only) 41.5 % (37.0-47.0); Hemoglobin 14.2 g/dl (12.0-16.0); Immature Granulocytes # (auto) 0.02 K/uL (0.01-0.20); Immature Granulocytes % (auto) 0.2 %; Lymphocytes # (auto) 2.88 K/uL (1.20-3.40); Lymphocytes % (auto) 31.8 %; Mean Corpuscular Hemoglobin 29.9 pg (25.0-34.0); Mean Corpuscular Hgb Conc 34.2 g/dL (32.0-36.0); Mean Corpuscular Volume 87.4 fL (80.0-100.0); Mean Platelet Volume 9.8 fL (9.4-12.4); Monocytes # (auto) 0.73 K/uL (0.11-0.59); Monocytes % (auto) 8.1 %; Neutrophils # (auto) 4.99 K/uL (1.40-6.50); Platelet Count 308 K/uL (130-400); RDW Coefficient of Variation 12.5 % (11.5-14.5); Red Blood Count 4.75 M/uL (4.20-5.40); White Blood Count 9.06 K/ul (4.8-10.8)
[2024-08-08 23:26] LABS: Troponin I High Sensitivity 4.5 pg/ml (0-14)
[2024-08-08 23:29] LABS: Alanine Aminotransferase 21 U/L (7-52); BUN Creatinine Ratio 22.6 (10-20); Bilirubin,Total 0.5 mg/dl (0.2-1.0); Blood Urea Nitrogen 12 mg/dl (6-23); Carbon Dioxide 28 mmol/L (21-32); Chloride 103 mmol/L (98-107); Creatinine Clr Calc Pharmacy 94.5 ml/min; Glucose 98 mg/dl (70-99(Fasting)); Lipase 38 U/L (11-82); Thyroid Stimulating Hormone 3.026 uIu/ml (0.300-4.500); Total Protein 7.9 gm/dl (6.0-8.3)
--- NOTE | 2024-08-08 23:39 | Emergency Department Note ---
ED Visit Note I was consulted by the Advanced Practice Provider, Corinne Choe PA-C. I personally made/approved the management plan and take responsibility for the patient management. I performed a substantive portion of the visit. This includes the aspects of: -MDM: Patient has rapid A-fib/flutter. Treated with IV metoprolol. Cardiac troponin negative. Consulted with internal medicine for admission and further management. .
[2024-08-09] MEDS: dilTIAZem HCl 5 MG/ML 5 ML VIAL IV STA (00:01)
[2024-08-09 00:31] LABS: Albumin Globulin Ratio 1.3 (0.9-2); Albumin Level 3.9 gm/dl (3.4-5.0); Globulin 3.1 gm/dl (2.5-4.0); Potassium 4.1 mmol/L (3.5-5.1)
--- NOTE | 2024-08-09 01:14 | XRay Report ---
EXAM: XR chest 1V portable CLINICAL HISTORY: CHEST PAIN JMF TECHNIQUE: Radiograph of chest was acquired. COMPARISON: None. FINDINGS: the lung vasques not reveal any obvious abnormality. No pleural effusion is detected. The cardio-mediastinal silhouette is within normal limits. No acute osseous abnormality. IMPRESSION: 1. No acute pathology is detected. Electronically signed by Otilio Rodriguez 08-09-2024 01:14 AM
[2024-08-09 01:39] LABS: INR 0.9 (0.9-1.1); Partial Thromboplastin Ratio 1.1; Partial Thromboplastin Time 29 Seconds (21-31); Prothrombin Time 10.2 Seconds (9.0-12.0)
--- NOTE | 2024-08-09 05:15 | History & Physical Report ---
Date of Service August 09, 2024 Assessment & Plan (1) Atrial fibrillation/flutter: Plan: 69-year-old female with past medical history significant for papillary thyroid carcinoma, postsurgical hypothyroidism, asthma, paroxysmal atrial fibrillation presents with rapid A-fib. Patient recently diagnosed with A-fib. She is on metoprolol 12.5 mg twice daily and on Eliquis. She was recently in [place] when she was walking her heart rate was in 30s so she called her paving machine operator and was advised to reduce the dose of metoprolol. So she was taking metoprolol her usual dose in the morning but in the nighttime she was taking 6.25 mg. She took it for 3 days. And she developed sinus symptoms and her asthma was acting up and she was using Dulera which can increase heart rate so she back on metoprolol 12.5 twice daily. She just came back from [place]. She was also started on Augmentin for sinusitis and she took 3 doses and her sinusitis seem to be improving. Today patient noticed her heart was racing fast and was feeling dizzy and monitor on the the watch showed that she was in rapid A-fib and came to the ER. In the ER she was given 3 dose of IV Lopressor 5 mg and and got 1 dose of IV Cardizem then she converted to sinus rhythm. Currently resting comfortably. Hemodynamically stable. Denies any headache. Has some runny nose and sore throat from her sinusitis. Denies any chest pain or shortness of breath. No fevers. No nausea. No abdominal pain. Appetite is okay. Normal bowel and bladder movements. Was ambulating okay. Rapid A-fib/flutter Got 3 dose of IV Lopressor 5 mg and 1 dose of 10 mg IV Cardizem in the ER Currently converted to sinus rhythm Will continue home metoprolol 12.5 p.o. twice daily and Eliquis 5 mg twice daily IV Lopressor as needed Will follow serial enzymes and echo Cardial consult for further recommendations Sinusitis Continue Augmentin Postsurgical hypothyroidism On Synthyroid TSH is okay DVT prophylaxis On Eliquis Disposition Telemetry Full code. History of Present Illness Chief Complaint: Rapid A-fib Primary Care Provider: Pat Hatfield DO 69-year-old female with past medical history significant for papillary thyroid carcinoma, postsurgical hypothyroidism, asthma, paroxysmal atrial fibrillation presents with rapid A-fib. Patient recently diagnosed with A-fib. She is on metoprolol 12.5 mg twice daily and on Eliquis. She was recently in [place] when she was walking her heart rate was in 30s so she called her paving machine operator and was advised to reduce the dose of metoprolol. So she was taking metoprolol her usual dose in the morning but in the nighttime she was taking 6.25 mg. She took it for 3 days. And she developed sinus symptoms and her asthma was acting up and she was using Dulera which can increase heart rate so she back on metoprolol 12.5 twice daily. She just came back from [place]. She was also started on Augmentin for sinusitis and she took 3 doses and her sinusitis seem to be improving. Today patient noticed her heart was racing fast and was feeling dizzy and monitor on the the watch showed that she was in rapid A-fib and came to the ER. In the ER she was given 3 dose of IV Lopressor 5 mg and and got 1 dose of IV Cardizem then she converted to sinus rhythm. Currently resting comfortably. Hemodynamically stable. Denies any headache. Has some runny nose and sore throat from her sinusitis. Denies any chest pain or shortness of breath. No fevers. No nausea. No abdominal pain. Appetite is okay. Normal bowel and bladder movements. Was ambulating okay. Past medical history. As mentioned above Past surgical history. Colonoscopy. Thyroidectomy. Tonsillectomy. Left knee meniscectomy. Inguinal hernia repair bilateral. Family significant breast cancer. Thyroid disease. Rheumatoid arthritis. Social history. No smoking. Alcohol occasional. Allergies Allergy/AdvReac Type Severity Reaction Status Date / Time doxycycline AdvReac Unknown possible Verified 12/09/23 10:50 cause of eosinophilic asthma Home Medications Medication Instructions Recorded Confirmed Type estradiol 0.01% (0.1 mg/gram) 1 g vaginal 2XWK #42.5 grams 12/09/23 08/09/24 Rx vaginal cream amoxicillin 875 mg-potassium 1 tab PO [facility] 08/08/24 08/08/24 History clavulanate 125 mg tablet mometasone-formoterol HFA 100 2 puff inhalation [facility] 08/08/24 08/09/24 History mcg-5 mcg/actuation aerosol inhaler (Dulera) apixaban 5 mg tablet (Eliquis) 5 mg PO [facility] 08/09/24 08/09/24 History azelastine 137 mcg (0.1 %) nasal 1 spray intranasal BID PRN Allergy 08/09/24 08/09/24 History spray Symptoms azithromycin 500 mg tablet 500 mg PO UD PRN RESCUE KIT 08/09/24 08/09/24 History cholecalciferol (vitamin D3) 50 50 mcg PO DAILY 08/09/24 08/09/24 History mcg (2,000 unit) tablet (Vitamin D3) levothyroxine 125 mcg tablet See Rx Instructions .Route .COMPLEX 08/09/24 08/09/24 History (Synthroid) melatonin 3 mg tablet 3 mg PO HS PRN Sleep 08/09/24 08/09/24 History metoprolol tartrate 25 mg tablet 12.5 mg PO [facility] 08/09/24 08/09/24 History mometasone 50 mcg/actuation HFA 1 inh inhalation UD 08/09/24 08/09/24 History aerosol inhaler (Asmanex HFA) prednisone 10 mg tablet 10 mg PO UD PRN RESCUE KIT 08/09/24 08/09/24 History vitamins A,C,I-ktom-lbkjlf 4,296 2 cap PO QAM 08/09/24 08/09/24 History mcg-226 mg-90 mg capsule (PreserVision AREDS) Past Med/Surg History Problem List (Updated 08/08/24 @ 23:55 by Corinne Choe PA-C) Atrial fibrillation/flutter (Acute) Globus sensation Small intestinal bacterial overgrowth Diarrhea GERD (gastroesophageal reflux disease) Routine gynecological examination Quadriceps contusion Knee pain, right Fracture of femoral neck, right, closed Pain of right knee after injury (Acute) Closed intertrochanteric fracture of right femur (Acute) Encounter for pre-operative examination Pre-op evaluation Medical History Cardiac murmur Nausea and vomiting after administration of anesthetic agent Presence of pessary Uterine prolapse History of COVID-19 Eosinophilic asthma Chronic hoarseness Rectocele Osteoporosis Temporomandibular joint disorder DVT (deep venous thrombosis) H/O therapeutic radiation Colon polyps Thyroid cancer Surgical History S/P hardware removal History of laryngoscopy History of total right hip replacement History of surgery on extremity S/P laparoscopic cholecystectomy (12/19/20) History of arthroscopy History of colonoscopy History of anesthesia reaction H/O hernia repair History of thyroid surgery S/P left knee surgery Family History Father No problems noted. Mother No problems noted. 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 Head- atraumatic Eyes- PERRL. ENT- oropharynx clear Neck- supple, no JVD. Lungs- clear to auscultation no wheezing or crackles. Heart- regular rate and rhythm; no murmur, no gallop Abdomen- normal bowel sounds, soft, nontender, no distension Extremities- no pretibial edema, no erythema seen. Neuro- alert, oriented PERRL, no facial palsy; no dysarthria; moves extremities Results & Data Results & Data Vital Signs (Past 12 Hours) Vital Signs Temp Pulse Resp BP Pulse Ox O2 Del Method 08/09/24 04:10 55 L 08/09/24 02:30 52 L 16 92/55 L 93 Room Air 08/09/24 02:00 52 L 15 99/59 L 93 Room Air 08/09/24 02:00 51 L 16 99/59 L 94 Room Air 08/09/24 01:30 53 L 14 99/57 L 97 Room Air 08/09/24 01:00 53 L 18 101/59 L 95 Room Air 08/09/24 00:30 55 L 18 94/54 L 96 Room Air 08/09/24 00:20 98 H 16 97/63 L 97 Room Air 08/09/24 00:20 142 H 118/80 08/09/24 00:16 50 L 08/08/24 23:47 122 H 16 118/80 97 Room Air 08/08/24 23:32 133 H 112/67 08/08/24 23:30 133 H 17 112/67 96 Room Air 08/08/24 23:01 121 H 18 118/94 98 Room Air 08/08/24 23:00 146 H 118/94 08/08/24 22:52 127 H 16 123/56 L 98 Room Air 08/08/24 22:48 100 Room Air 08/08/24 22:48 127 H 16 98 08/08/24 22:48 Room Air 08/08/24 22:46 123 H 18 97 Room Air 08/08/24 22:44 136 H 112/73 08/08/24 22:35 142 H 08/08/24 22:20 36.5 C 103 H 16 130/61 97 Room Air Diagnostic Findings Laboratory Results WBC 9.06 K/ul (4.8-10.8) 08/08/24 22:40 RBC 4.75 M/uL (4.20-5.40) 08/08/24 22:40 Hgb 14.2 g/dl (12.0-16.0) 08/08/24 22:40 Hct 41.5 % (37.0-47.0) 08/08/24 22:40 MCV 87.4 fL (80.0-100.0) 08/08/24 22:40 MCH 29.9 pg (25.0-34.0) 08/08/24 22:40 MCHC 34.2 g/dL (32.0-36.0) 08/08/24 22:40 RDW Std Deviation 40.0 fL (36.4-46.3) 08/08/24 22:40 RDW Coeff of Vladimir 12.5 % (11.5-14.5) 08/08/24 22:40 Plt Count 308 K/uL (130-400) 08/08/24 22:40 MPV 9.8 fL (9.4-12.4) 08/08/24 22:40 Immature Gran % (Auto) 0.2 % 08/08/24 22:40 Neut % (Auto) 55.0 % 08/08/24 22:40 Lymph % (Auto) 31.8 % 08/08/24 22:40 Vernon % (Auto) 8.1 % 08/08/24 22:40 Eos % (Auto) 4.0 % 08/08/24 22:40 Baso % (Auto) 0.9 % 08/08/24 22:40 Neut # (Auto) 4.99 K/uL (1.40-6.50) 08/08/24 22:40 Lymph # (Auto) 2.88 K/uL (1.20-3.40) 08/08/24 22:40 [place] # (Auto) 0.73 K/uL (0.11-0.59) H 08/08/24 22:40 Eos # (Auto) 0.36 K/uL (0.00-0.50) 08/08/24 22:40 Baso # (Auto) 0.08 K/uL (0.00-0.20) 08/08/24 22:40 Immature Gran # (Auto) 0.02 K/uL (0.01-0.20) 08/08/24 22:40 PT 10.2 Seconds (9.0-12.0) 08/09/24 01:00 INR 0.9 (0.9-1.1) 08/09/24 01:00 APTT 29 Seconds (21-31) 08/09/24 01:00 PTT Ratio 1.1 08/09/24 01:00 Sodium 140 mmol/L (136-145) 08/08/24 23:50 Potassium 4.1 mmol/L (3.5-5.1) 08/08/24 23:50 Chloride 103 mmol/L (98-107) 08/08/24 22:40 Carbon Dioxide 28 mmol/L (21-32) 08/08/24 22:40 Anion Gap TNP 08/08/24 22:40 BUN 12 mg/dl (6-23) 08/08/24 22:40 Creatinine 0.53 mg/dl (0.6-1.2) L 08/08/24 22:40 Est Cr Clr Drug Dosing 94.5 ml/min 08/08/24 22:40 eGFR 100.05 08/08/24 22:40 BUN/Creatinine Ratio 22.6 (10-20) H 08/08/24 22:40 Glucose 98 mg/dl (70-99(Fasting)) 08/08/24 22:40 Calcium 9.0 mg/dl (8.6-10.3) 08/08/24 22:40 Magnesium 2.0 mg/dl (1.7-2.4) 08/08/24 23:50 Total Bilirubin 0.5 mg/dl (0.2-1.0) 08/08/24 22:40 AST 22 U/L (13-39) 08/08/24 23:50 ALT 21 U/L (7-52) 08/08/24 22:40 Alkaline Phosphatase 73 U/L (34-104) 08/08/24 23:50 Troponin I High Sens 4.5 pg/ml (0-14) 08/08/24 22:40 Total Protein 7.0 gm/dl (6.0-8.3) 08/08/24 23:50 Albumin 3.9 gm/dl (3.4-5.0) 08/08/24 23:50 Globulin 3.1 gm/dl (2.5-4.0) 08/08/24 23:50 Albumin/Globulin Ratio 1.3 (0.9-2) 08/08/24 23:50 Lipase 38 U/L (11-82) 08/08/24 22:40 TSH 3.026 uIu/ml (0.300-4.500) 08/08/24 22:40 Impressions Chest X-Ray 08/08/24 22:37 EXAM: XR chest 1V portable CLINICAL HISTORY: CHEST PAIN JMF TECHNIQUE: Radiograph of chest was acquired. COMPARISON: None. FINDINGS: the lung vasques not reveal any obvious abnormality. No pleural effusion is detected. The cardio-mediastinal silhouette is within normal limits. No acute osseous abnormality. IMPRESSION: 1. No acute pathology is detected. Electronically signed by Otilio Rodriguez 08-09-2024 01:14 AM ECG Additional Comments: ECG. A flutter with variable AV block with PVCs at the rate of 136. Nonspecific ST and T wave abnormality. Code Status & VTE Plan VTE Prophylaxis Plan VTE Prophylaxis will be ordered: Yes
[2024-08-09] MEDS ORDERED: MOMETASONE INH SCH (06:01)
[2024-08-09] MEDS ORDERED: ACETAMINOPHEN 325 MG TAB PO PRN (06:01)
[2024-08-09] MEDS ORDERED: AZELASTINE HCL 0.1% NASAL 200 SPRAYS/27,400 MCG BTL PRN (06:01)
[2024-08-09] MEDS ORDERED: MELATONIN 3 MG TAB PO PRN (06:01)
[2024-08-09] MEDS ORDERED: POLYETHYLENE (MIRALAX) 17 GM PACK PO PRN (06:01)
[2024-08-09] MEDS ORDERED: [UNRECOGNIZED DRUG - OTHER] INH SCH (06:01)
[2024-08-09] MEDS ORDERED: METOPROLOL TARTRATE 1 MG/ML VIAL IV PRN (06:01)
[2024-08-09] MEDS ORDERED: NITROGLYCERIN SL 0.4 MG/TAB TAB SL PRN (06:01)
[2024-08-09 06:41] VITALS: TEMP 98.1
[2024-08-09] MEDS: LEVOTHYROXINE SODIUM 125 MCG TABLET PO SCH (06:55)
[2024-08-09 07:07] VITALS: RESP 16
[2024-08-09] MEDS: CHOLECALCIFEROL 25 MCG (1000 UNITS) TAB PO SCH (08:02)
[2024-08-09] MEDS: APIXABAN 5 MG TABLET PO SCH (08:02)
[2024-08-09] MEDS: METOPROLOL TARTRATE 25 MG TAB PO SCH (08:03)
[2024-08-09] MEDS: FLUTICASONE/VILANTEROL 100/25MCG 14 PUFFS/INHALER INH SCH (08:04)
[2024-08-09] MEDS: CEROVITE ADV FORMULA TAB PO SCH (08:04)
--- OUTSIDE RECORDS SUMMARY | 2024-08-09 08:09 | External Medical Summary | Summary of Care ---
Author Name Unknown Organization [facility] Address [address] [facility] [facility] [address] Phone [phone] Care Team Providers Care Mine Shifter Name Role Phone Pat Hatfield DO Primary Care Provider [phone] Reason for Visit * Reason Onset Date Comments Test Results 07/03/2024 Encounter Details Date Type Department Care Team (Late st Contact Info) Description 07/03/2024 Telephone Family Practice [facility] [address] [place] [address] Pat Hatfield DO [address] [place] [address] Test Results Allergies Active Allergy Reactions Criticality Noted Date Comments Doxycycline 06/22/2023 Other Reaction(s): makes asthma worse, 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 Active Estradiol 0.1 MG/GM vaginal cream 09/08/19 18 Active Multiple Vitamins-Minera ls (PRESERVISION AREDS) Capsule Take by mouth. 07/21/20 18 Active Synthroid 125 MCG Oral Tablet TAKE 1 TABLET BY MOUTH ONCE DAILY IN THE MORNING 12/31/19 22 Active Full Kit Nebulizer Set Use with Nebulizer Medication as directed 1 Each 3 02/17/20 23 Active Budesonide 0.25 MG/2ML Inhalation Suspension (Pulmicort) Inhale 0.25 mg via nebulizer in the morning. 260 mL 02/19/20 23 Active Dulera 50-5 MCG/ACT Inhalation Aerosol (Mometasone Furo-Formoterol Fum)Indications :Moderate persistent asthma without complication Inhale 2 Puffs by mouth in the morning and 2 Puffs before bedtime. 13 g 5 04/08/20 23 Active Additional Information Patient taking differently:2 Puff Inhalation BID (.AM/PM),Pt takes 1 puff twice daily, Reported on 06/15/2024 Ventolin HFA 108 (90 Base) MCG/ACT Inhalation Aerosol SolutionIndicat ions:Moderate persistent asthma without complication Inhale 2 Puffs by mouth every 6 hours as needed for Wheezing, Dyspnea, Cough or Shortness of Breath. 18 g 5 06/02/20 23 Active Additional Information Patient not taking.Reported on 06/15/2024 Levalbuterol Tartrate 45 MCG/ACT Inhalation Aerosol (Xopenex HFA)Indications :Moderate asthma with exacerbation, unspecified whether persistent,Tach ycardia Inhale 1 Puff by mouth every 4 hours as needed for Wheezing. 15 g 12 06/13/20 24 Active Azithromycin 500 MG Oral Tablet (Zithromax)Rosa cations:Moderat e persistent asthma without complication Take 1 Tablet by mouth in the morning. RESCUE KIT. 5 Tablet 1 06/15/20 24 Active predniSONE 10 MG Oral Tablet (Deltasone)Rosa cations:Moderat e persistent asthma without complication Take 2 Tabs Daily in AM with meals x 5 days; then 1 Tab daily with meals x 5 days; then 1/2 tab daily with meals for 5 days, and STOP. RESCUE KIT 18 Tablet 1 06/15/20 24 Active Apixaban 5 MG Oral Tablet (Eliquis)Indica tions:PAF (paroxysmal atrial fibrillation) (HCC) Take 1 Tablet by mouth in the morning and 1 Tablet before bedtime. 60 Tablet 5 07/03/20 24 Active Metoprolol Tartrate 25 MG Oral Tablet (Lopressor)Rosa cations:PAF (paroxysmal atrial fibrillation) (HCC) Take 0.5 Tablets by mouth in the morning and 0.5 Tablets before bedtime. 30 Tablet 5 07/03/20 24 Active Metoprolol Tartrate 25 MG Oral Tablet (Lopressor)Rosa cations:PAF (paroxysmal atrial fibrillation) (HCC) Take 1 Tablet by mouth in the morning and 1 Tablet before bedtime. 60 Tablet 5 07/03/20 24 024 Discontinued documented as of this encounter (statuses as of 07/07/2024) Active Problems Problem Noted Date Diagnosed Date Age-related osteoporosis wit hout current pathological fracture 12/03/2020 Overview (12/03/2020): Previous prune study - showed improvement Following w/endocrinology History of papillary adenocarcinoma of thyroid 0 12/03/2020 Postsurgical hypothyroidism 12/03/2020 Asthma documented as of this encounter (statuses as of 07/07/2024) Resolved Problems Problem Noted Date Diagnosed Date Resolved Date Papillary thyroid carcinoma 03/22/2017 12/03/2020 Overview (02/10/2018): S/p thyroidectomy Strep sore throat 05/14/2011 08/31/2011 Menopause 03/10/2011 06/01/2017 ADVANCE DIRECTIVE INFORMATION 10/04/2006 06/17/2017 Overview (10/04/2006): Yes, Patient instructed to provide copy of advance directive for provider to review and to be scanned into Electronic Medical Record Menstruation, irregular 06/20/2001 08/0 04/2011 IRON DEFIC ANEMIA NOS 06/20/20012016 documented as of this encounter (statuses as of 07/07/2024) Immunizations Name Administration Dates Next Due COVID-19 mRNA, LNP-s, No Pre serve, 2-Dose Series (Moderna) 09/28/2020,08/24/2020 COVID-19, MRNA-LNP, PF, 30 M CG/0.3 mL, 12 YRS AND ABOVE, IM ([employer]-Comirnaty) 06/15/2024 COVID-19, mRNA, LNP-s, PF, B ooster, 100mcg/0.5mg (Moderna) 12/18/2021,05/24/2021 HEP A - Hepatitis A (Adult > 18 yrs) 01/06/2005 Hepatitis B Vaccine 03/25/1998 04/25/1998 Hepatitis B, 20+ yrs 10/27/1999,05/26/1999,03/25 Meningococcal Polysaccharide Vaccine ([place]) 05/26/1999 PPD 03/24/2005,02/11/2005 Pneumococcal Conjugate Vacci ne, 20-valent ([id number]) 03/23/2022 Pneumococcal Polysaccharide PPV23 (Pneumovax) 12/03/2020 Seasonal Influenza Vac., MDV , IM, 0.5 mL (Fluzone) 05/23/2020,2019,07/13/2018,06/04,05/26/1999 Seasonal Influenza Virus Vac cine, Unspecified Formulation 05/23/2020,2019,07/13/2018,06/04,05/26/1999 Seasonal Influenza, High Dos e, Trivalent, PF, IM (Fluzone HD) 06/13/2024 Seasonal Influenza, Quadriva lent Hd (Fluzone Hd) 06/07/2023,06/01/2022,05/05/2021 Seasonal Influenza, Quadriva lent, No Preserve, IM 2019,2018,05/21/2015 Seasonal Influenza, Quadriva lent, No Preserve, Mdck 2019 Seasonal Influenza, Recombin ant, RIV4, PF, (Flublock) 05/23/2020 Seasonal Influenza, Trivalen t, (IIV3), PF, (Fluzone) 09/25/2017 TD - Tetanus/Diptheria (ADULT) 01/06/2005 TD, Preservative Free 01/06/2005 TDAP (age 10 and older)(Boostrix) 08/29/2021 TDAP, Age 7 and older, IM (Adacel) 03/10/2011 Typhoid Vaccine Oral (Vivotif) 01/06/2005 Yellow Fever Vaccine, Live (YF-Vax) 01/06/2005 Zoster Vaccine Recombinant (Shingrix) 06/22/2022 ,03/23/2022 documented as of this encounter Social History Tobacco Use Types Packs/Day Years Used Date Smoking Tobacco: Never Smokeless Tobacco: Never Alcohol Use Standard Drinks/Week Comments Yes 0 (1 standard drink = 0.6 oz pur e alcohol) 12 drinks a year PHQ-2 Answer Date Recorded PHQ Adult Total Score 0 06/13/2024 Hunger Vital Sign Answer Date Recorded Within the past 12 months, y ou worried that your food would run out before you got the money to buy more. Never true 06/12/20 24 Within the past 12 months, t he food you bought just didn't last and you didn't have money to get more. Never true 06/12/2024 Childcare Answer Date Recorded Do you feel overwhelmed with taking care of a child, family member or friend? No 06/12/2024 Does your family need help f inding childcare? (Household - for ages 0-17 years) Not on file 06/12/2024 Clothing Answer Date Recorded Have you been unable to get clothing when it was really needed? No 06/12/2024 Is your family able to get c lothes or diapers when needed? (Household - for ages 0-17 years) Not on file 06/12/2024 Personal Safety Answer Date Recorded Do you feel unsafe or have concerns for your saf ety? No 06/12/2024 Do you have concerns for you r family's safety? (Household - for ages 0-17 years) Not on file 06/12/2024 Utilities Answer Date Recorded Do you have trouble paying y our heating, water, or electric bill? No 06/12/2024 Is your family able to pay t he heat, water, or electric bill? (Household - for ages 0-17 years) Not on file 06/12/2024 Does your family have access to good internet? (Household - for ages 0-17 years) Not on file 06/12/2024 Employment Status Answer Date Recorded Are you unemployed or without regular income? No 06/12/2024 Does the household have a re lar source of income? (Household - for ages 0-17 years) Not on file 06/12/2024 Social Connections Answer Date Recorded How often do you feel lonely or isolated from th ose around you? Never 06/12/2024 Financial Resource Strain Answer Date R ecorded Do you have any trouble payi ng for your medications, or do you think you might in the future? No 06/12/2024 Does your family have troubl e paying for medicine? (Household - for ages 0-17 years) Not on file 06/12/2024 Transportation Needs Answer Date Record ed Do you have trouble getting a ride to medical visits or work? (Adult - for ages 18 years and over) Not on file 06/12/2024 Does your family have a hard time getting a ride to doctors visits? (Household - for ages 0-17 years) Not on file 06/12/2024 Has lack of transportation k ept you from medical appointments, meetings, work, or from getting things needed for daily living? Check all that apply. No 06/12/2024 Do you (or your family) have trouble finding or paying for a ride (transportation)? (Household - for ages 0-17 years) Not on file 06/12/2024 Housing Stability Answer Date Recorded Do you currently live in a s helter or have no steady place to sleep at night? No 06/12/2024 Do you think you are at risk of becoming homeless? (Adult - for ages 18 years and over) Not on file 06/12/2024 Does your family worry about paying for your home or becoming homeless? (Household - for ages 0-17 years) Not on file 1 08/12/2023 Are you homeless or worried that you might be in the future? No 06/12/2024 Are you (or your family) sarah eless or worried that you might be in the future? (Household - for ages 0-17 years) Not on file Food Insecurity Answer Date Recorded Do you need food for this week? No 06/12/2024 Are you able to get enough f ood for your family? (Household - for ages 0-17 years) Not on file 06/12/2024 Does your family need food t his week? (Household - for ages 0-17 years) Not on file 06/12/2024 Do you always have enough fo od for your family? (Household - for ages 0-17 years) Not on file 06/12/2024 Comments No Sex and Gender Information Value Date Recorded Sex Assigned at Female 03/19/2022 3:37 PM EDT Legal Sex Female 7:06 AM EST Gender Identity Female 03/19/2022 3:37 PM EDT Sexual Orientation Straight 03/19/2022 3: 37 PM EDT Occupation Industry Job Start Date Job End Date retired-[employer] Not on file Not on file Not on fi le documented as of this encounter Miscellaneous Notes * Telephone Encounter - Pat Hatfield, DO - 07/04/2024 1:17 PM EST Spoke w/patient She will f/u w/pharmacy If no sooner cardio appt requests referral for [place] * Telephone Encounter - Pat Hatfield DO - 07/03/2024 4:27 PM EST Myg to pt re:zio showing PAF Ordered eliquis and metoprolol 12.5mg BID Cardio looking for sooner f/u appt documented in this encounter Plan of Treatment Upcoming Encounters Date Type Department Care Team (Late st Contact Info) Description 07/11/2024 2:00 PM EST Office Visit Cardiology [facility] [address] [place] [address] Andrew King DO [address] [place] [address] 06/25/2025 10:45 AM EST Office Visit Dermatology [facility] [address] [place] [address] Vaibhav Diaz MD [address] [place] [address] Scheduled Procedures Name Priority Associated Diagnoses Date/Ti me COLONOSCOPY FLEXIBLE PROXIMAL DIAGNOSTIC Recall History of colon polyps Health Maintenance Due Date Last Done Comments Cologuard 2000 Fecal Occult Blood Test 2000 Sigmoidoscopy 2000 TSH 02/07/2024 02/06/2023, 12/31, 06/10/2018, Additional history exists *BISPHONATE OR OTHER ACCEPTABLE MEDICATION NEEDED FOR OSTEOPOROSIS (REFER TO SMARTSET #1146) 07/02/2024 Mammogram 04/28/2025 04/28/2024, 09/0 11/2022, 03/09/2022, Additional history exists Depression Screening 06/13/2025 06/13/2024 Lipid Panel 12/12/2025 12/12/2020, 04/0 04/2015, 09/28/2013, Additional history exists DXA Scan 05/15/2026 05/15/2024, 05/02, 05/15/2024, Additional history exists Colonoscopy 05/29/2027 05/29/2022, 05/03, 05/12/2017, Additional history exists Colorectal Cancer Screening 05/29/2027 DTap/Tdap Vaccines (3 - Td or Tdap) 08/29/2031 08/29/2021, 03/10/2011, 01/06/2005, Additional history exists MENINGOCOCCAL (MENACTRA/MENVEO) Aged Out 05/26/1999 No longer eligible based on patient's age to complete this topic Hepatitis B Vaccine Completed 10/27/1999, 05/26/1999, 03/25/1998, Additional history exists Pap Smear Discontinued 11/15/2017, 11/01, 11/13/2014, Additional history exists VITAMIN D LEVEL ONCE IN A LIFETIME-USE SMARTSET# 82323 Completed 01/14/2022, 03/19/2017, 11/08/2014, Additional history exists Pneumococcal Vaccine: 65+ Years Completed 03/23/2022, 12/03/2020 RETIRED - COLONOSCOPY-EVERY 5 YRS AGES 18-100 Discontinued 05/29/2022, 05/29/2022, 05/12/2017, Additional history exists Zoster Vaccines Completed 06/22/2022, 03/23/2022 Influenza Vaccine (FLU shot) Completed 06/13/2024, 06/07/2023, 06/01/2022, Additional history exists COVID-19 Vaccine Completed 06/15/2024, 07/2024, 04/24/2023, Additional history exists HPV (Gardasil) Vaccine Aged Out No lo nger eligible based on patient's age to complete this topic documented as of this encounter Medical Devices Not on filedocumented as of this encounter Visit Diagnoses Diagnosis PAF (paroxysmal atrial fibrillation) (HCC)- Primary Atrial fibrillation documented in this encounter Care Teams Mine Shifter Relationship Specialty Start Date End Date Pat Hatfield DO [address] [place] [address] PCP - General Family Medicine 11/28/20 documented as of this encounter
--- OUTSIDE RECORDS SUMMARY | 2024-08-09 08:09 | External Medical Summary | Summary of Care ---
Author Name Unknown Organization [facility] Address [address] [facility] [address] Phone [phone] Care Team Providers Care Water Main Installer Helper Name Role Phone Pat Hatfield DO Primary Care Provider Reason for Visit * Reason Onset Date Comments Pre Cert/Prior Auth 06/14/2024 Encounter Details Date Type Department Care Team (Late st Contact Info) Description 06/14/[address] 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 Active Estradiol 0.1 MG/GM vaginal cream 8 Active Multiple Vitamins-Mineral s (PRESERVISION AREDS) Capsule Take by mouth. 8 Active Synthroid 125 MCG Oral Tablet TAKE 1 TABLET BY MOUTH ONCE DAILY IN THE MORNING 2 Active Full Kit Nebulizer Set Use with Nebulizer Medication as directed 1 Each 3 3 Active Budesonide 0.25 MG/2ML Inhalation Suspension (Pulmicort) Inhale 0.25 mg via nebulizer in the morning. 260 mL 3 Active Dulera 50-5 MCG/ACT Inhalation Aerosol (Mometasone Furo-Formoterol Fum)Indications: Moderate persistent asthma without complication Inhale 2 Puffs by mouth in the morning and 2 Puffs before bedtime. 13 g 5 3 Active Additional Information Patient taking differently:2 Puff Inhalation BID (.AM/PM),Pt takes 1 puff twice daily, Reported on 06/15/2024 Ventolin HFA 108 (90 Base) MCG/ACT Inhalation Aerosol SolutionIndicati ons:Moderate persistent asthma without complication Inhale 2 Puffs by mouth every 6 hours as needed for Wheezing, Dyspnea, Cough or Shortness of Breath. 18 g 5 3 Active Additional Information Patient not taking.Reported on 06/15/2024 Levalbuterol Tartrate 45 MCG/ACT Inhalation Aerosol (Xopenex HFA)Indications: Moderate asthma with exacerbation, unspecified whether persistent,Tachy cardia Inhale 1 Puff by mouth every 4 hours as needed for Wheezing. 15 g 12 4 Active documented as of this encounter (statuses as of 06/27/2024) Active Problems Problem Noted Date Diagnosed Date Age-related osteoporosis wit hout current pathological fracture 12/03/2020 Overview (12/03/2020): Previous prune study - showed improvement Following w/endocrinology History of papillary adenocarcinoma of thyroid 0 12/03/2020 Postsurgical hypothyroidism 12/03/2020 Asthma documented as of this encounter (statuses as of 06/27/2024) Resolved Problems Problem Noted Date Diagnosed Date [...] as of this encounter (statuses as of 06/27/2024) Immunizations Name Administration Dates Next Due COVID-19 mRNA, LNP-s, No Pre serve, 2-Dose Series (Moderna) 09/28/2020,08/24/2020 COVID-19, mRNA, LNP-s, PF, B ooster, 100mcg/0.5mg (Moderna) 12/18/2021,05/24/2021 Hepatitis B, 20+ yrs 03/25/1998 Pneumococcal Conjugate Vacci ne, 20-valent ([id number]) 03/23/2022 Pneumococcal Polysaccharide PPV23 (Pneumovax) 12/03/2020 Seasonal Influenza Vac., MDV , IM, 0.5 mL (Fluzone) 05/23/2020,2019,07/13/2018,07/01 Seasonal Influenza Virus Vac cine, Unspecified Formulation 05/23/2020,2019,07/13/2018,07/01,05/26/1999 Seasonal Influenza, High Dos e, Trivalent, PF, IM (Fluzone HD) 06/13/2024 Seasonal Influenza, Quadriva lent Hd (Fluzone Hd) 06/07/2023,06/01/2022,05/05/2021 Seasonal Influenza, Quadriva lent, No Preserve, IM 2019,2018,05/21/2015 Seasonal Influenza, Quadriva lent, No Preserve, Mdck 2019 Seasonal Influenza, Recombin ant, RIV4, PF, (Flublock) 05/23/2020 Seasonal Influenza, Trivalen t, (IIV3), PF, (Fluzone) 09/25/2017 TD, Preservative Free 01/06/2005 TDAP (age 10 and older)(Boostrix) 08/29/2021 TDAP, Age 7 and older, IM (Adacel) 03/10/2011 Zoster Vaccine Recombinant (Shingrix) 06/22/2022 ,03/23/2022 documented [...] No 06/12/2024 Does the household have a [facility]? (Household - for ages [...] encounter Miscellaneous Notes * Telephone Encounter - Shea Harrison LPN - 06/27/2024 12:39 PM EST Checked status of prior auth. Prior auth approved. Authorization Expiration Date: 06/21/2025 * Telephone Encounter - Zulema Grayson RN - 06/20/2024 5:52 PM EST Sent via cover [employer] [place] [email or web address] Waiting for decision * Telephone Encounter - Pat Hatfield DO - 06/14/2024 7:33 PM EST Can we try for prior auth Pt w/sx of tachycardia using albuterol * Telephone Encounter - Zulema Grayson RN - 06/14/2024 7:28 PM EST Received fax from [facility] stating that Xopenex HFA will require a prior auth. Change prescription or try for prior auth? documented in this encounter Plan of Treatment Upcoming Encounters Date Type Department Care Team (Late st Contact Info) Description 11/14/2024 10:00 AM EDT Office Visit Cardiology, [facility] [address] [place] [address] Bishnu Hatfield DO [address] [place] [address] 06/25/2025 10:45 AM EST Office Visit Dermatology [facility] [address] [place], [place] [address] Vaibhav Diaz MD [address] [place] [address] Scheduled Procedures Name Priority Associated Diagnoses Date/Ti me COLONOSCOPY FLEXIBLE PROXIMAL DIAGNOSTIC Recall History of colon polyps Health Maintenance Due Date Last Done Comments Cologuard 2000 Fecal Occult Blood Test 2000 Sigmoidoscopy 2000 TSH 02/07/2024 02/06/2023, 12/31, 06/10/2018, Additional history exists Mammogram 04/28/2025 04/28/2024, 11/2022, 03/09/2022, Additional history exists Depression Screening 06/13/2025 06/13/2024 Lipid Panel 12/12/2025 12/12/2020, 04/2015, 09/28/2013, Additional history exists DXA Scan [...] D LEVEL ONCE IN A LIFETIME-USE SMARTSET# 91139 Completed 01/14/2022, 03/19/2017, 11/08/2014, Additional history exists [...] Not on filedocumented as of this encounter Care Teams Water Main Installer Helper Relationship Specialty Start Date End Date Pat Hatfield DO [address] [place] [address] PCP - General Family Medicine 11/28/20 documented as of this encounter
--- OUTSIDE RECORDS SUMMARY | 2024-08-09 08:09 | External Medical Summary | Summary of Care ---
Author Name Unknown Organization [facility] Address [address] [facility] [address] Phone [phone] Care Team Providers Care Property Utilization Officer Name Role Phone Pat Hatfield DO Primary Care Provider [phone] Reason for Visit * Reason Onset Date Comments Test Results 07/03/2024 Encounter Details Date Type Department Care Team (Late st Contact Info) Description 07/03/2024 Telephone Family Practice [facility] [address] [place] [address] Pat Hatfield DO [address] [place] [address] Test Results Allergies Active Allergy Reactions Criticality Noted Date Comments Doxycycline 06/22/2023 Other Reaction(s): makes asthma worse, 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 documented as of this encounter (statuses as of 07/03/2024) Medications Cholecalciferol (VITAMIN D3) 5000 UNITS Tablet [...] as of this encounter (statuses as of 07/03/2024) Active Problems Problem Noted Date Diagnosed Date Age-related osteoporosis wit hout current pathological fracture 12/03/2020 Overview (12/03/2020): Previous prune study - showed improvement Following w/endocrinology History of papillary adenocarcinoma of thyroid 0 12/03/2020 Postsurgical hypothyroidism 12/03/2020 Asthma documented as of this encounter (statuses as of 07/03/2024) Resolved Problems Problem Noted Date Diagnosed Date [...] as of this encounter (statuses as of 07/03/2024) Immunizations Name Administration Dates Next Due COVID-19 mRNA, LNP-s, No Pre serve, 2-Dose Series (Moderna) 09/28/2020,08/24/2020 COVID-19, MRNA-LNP, PF, 30 M CG/0.3 mL, 12 YRS AND ABOVE, IM ([employer]-Comirnaty) 06/15/2024 COVID-19, mRNA, LNP-s, PF, B ooster, 100mcg/0.5mg (Moderna) 12/18/2021,05/24/2021 Hepatitis B, 20+ yrs 03/25/1998 Pneumococcal Conjugate Vacci ne, 20-valent ([id number]) 03/23/2022 Pneumococcal Polysaccharide PPV23 (Pneumovax) 12/03/2020 Seasonal [...] No 06/12/2024 Does the household have a [facility] source of income? (Household - for ages [...] Miscellaneous Notes * Telephone Encounter - Pat Hatfield DO - 07/03/2024 4:27 PM EST Myg to pt re:zio showing PAF Ordered eliquis and metoprolol 12.5mg BID Cardio looking for sooner f/u appt documented in this encounter Plan of Treatment Upcoming Encounters Date Type Department Care Team (Late st Contact Info) Description 11/14/2024 10:00 AM EDT Office Visit Cardiology, [facility] [address] [place] [address] Bishnu Hatfield, [address] [place] [address] 06/25/2025 10:45 AM EST Office Visit Dermatology [facility] [address] [facility] [place] [address] Vaibhav Diaz MD [address] [facility] [place] [address] Scheduled Procedures Name Priority Associated Diagnoses Date/Ti me COLONOSCOPY FLEXIBLE PROXIMAL DIAGNOSTIC Recall History of colon polyps Health Maintenance Due Date Last Done Comments Cologuard 2000 Fecal Occult Blood Test 2000 Sigmoidoscopy 2000 TSH 02/07/2024 02/06/2023, 12/31, 06/10/2018, Additional history exists *BISPHONATE OR OTHER ACCEPTABLE MEDICATION NEEDED FOR OSTEOPOROSIS (REFER TO SMARTSET #1146) 07/02/2024 Mammogram 04/28/2025 04/28/2024, 11/2022, 03/09/2022, Additional history [...] D LEVEL ONCE IN A LIFETIME-USE SMARTSET# [id number] Completed 01/14/2022, 03/19/2017, 11/08/2014, Additional history exists [...] fibrillation documented in this encounter Care Teams Property Utilization Officer Relationship Specialty Start Date End Date Pat Hatfield DO [address] [place] [address] PCP - General Family Medicine 11/28/20 documented as of this encounter
--- OUTSIDE RECORDS SUMMARY | 2024-08-09 08:09 | External Medical Summary | Summary of Care ---
Author Name Unknown Organization [facility] Address [address] [place] [address] Phone [phone] Care Team Providers Care Substation Inspector Name Role Phone Pat Hatfield DO Primary Care Provider [phone] Reason for Visit * Reason Onset Date Comments Medication Problem 07/21/2024 Advice 07/21/2024 Encounter Details Date Type Department Care Team (Late st Contact Info) Description 07/21/2024 Telephone Cardiology [facility] [address], [place] [address] Andrew King DO [address], [place] [id number] Medication Problem; Advice Allergies Active Allergy Reactions Criticality Noted Date Comments Doxycycline 06/22/2023 Other Reaction(s): makes asthma worse, 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 Active Estradiol 0.1 MG/GM vaginal cream 09/08/19 18 Active Multiple Vitamins-Mineral s (PRESERVISION AREDS) Capsule Take by mouth. 07/21/20 [...] takes 1 puff twice daily, Reported on 07/11/2024 Ventolin HFA 108 (90 Base) MCG/ACT Inhalation Aerosol SolutionIndicati ons:Moderate persistent asthma without complication Inhale 2 Puffs by mouth every 6 hours as needed for Wheezing, Dyspnea, Cough or Shortness of Breath. 18 g 5 06/02/20 23 Active Levalbuterol Tartrate 45 MCG/ACT Inhalation Aerosol (Xopenex HFA)Indications: Moderate asthma with exacerbation, unspecified whether persistent,Tachy cardia Inhale 1 Puff by mouth every 4 hours as needed for Wheezing. 15 g 12 06/13/20 24 Active Azithromycin 500 MG Oral Tablet (Zithromax)Indic ations:Moderate persistent asthma without complication Take 1 Tablet by mouth in the morning. RESCUE KIT. 5 Tablet 1 06/15/20 24 Active predniSONE 10 MG Oral Tablet (Deltasone)Indic ations:Moderate persistent asthma without complication Take 2 Tabs Daily in AM with meals x 5 days; then 1 Tab daily with meals x 5 days; then 1/2 tab daily with meals for 5 days, and STOP. RESCUE KIT 18 Tablet 1 06/15/20 24 Active Apixaban 5 MG Oral Tablet (Eliquis)Indicat ions:PAF (paroxysmal atrial fibrillation) (HCC) Take 1 Tablet by mouth in the morning and 1 Tablet before bedtime. 60 Tablet 5 07/03/20 24 Active Systane ICaps AREDS2 Oral Capsule Take by mouth every morning. Active Tea Tree Oil Oil as needed. Ac tive Asmanex HFA 50 MCG/ACT Inhalation Aerosol 07/05/20 24 Active Fluticasone Propionate 50 MCG/ACT Nasal Suspension (Flonase) Administer into nostril as needed. Active Benzonatate 100 MG Oral Capsule (Tessalon Perldat) Take 1 Capsule by mouth as needed. Active Azelastine HCl 0.1 % Nasal Solution (Astelin) Administer into nostril as needed. 07/07/20 24 Active Albuterol Sulfate HFA 108 (90 Base) MCG/ACT Inhalation Aerosol Solution Q4H 03/18/20 23 Active Metoprolol Succinate ER 25 MG Oral Tablet Extended Release 24 Hour (Toprol XL) Take 0.5 Tablets by mouth in the morning. 45 Tablet 3 07/21/20 24 Active Metoprolol Tartrate 25 MG Oral Tablet (Lopressor)Indic ations:PAF (paroxysmal atrial fibrillation) (HCC) Take 0.5 Tablets by mouth in the morning and 0.5 Tablets before bedtime. 30 Tablet 5 07/03/20 24 024 Discontin ued(Medic ation/Dos e Changed) documented as of this encounter (statuses as of 07/21/2024) Active Problems Problem Noted Date Diagnosed Date Age-related osteoporosis wit hout current pathological fracture 12/03/2020 Overview (12/03/2020): Previous prune study - showed improvement Following w/endocrinology History of papillary adenocarcinoma of thyroid 0 12/03/2020 Postsurgical hypothyroidism 12/03/2020 Asthma documented as of this encounter (statuses as of 07/21/2024) Resolved Problems Problem Noted Date Diagnosed Date [...] as of this encounter (statuses as of 07/21/2024) Immunizations Name Administration Dates Next Due COVID-19 mRNA, LNP-s, No Pre serve, 2-Dose Series (Moderna) 09/28/2020,08/24/2020 COVID-19, MRNA-LNP, PF, 30 M CG/0.3 mL, 12 YRS AND ABOVE, IM (PFIZER-Comirnaty) 06/15/2024 COVID-19, mRNA, LNP-s, PF, B ooster, 100mcg/0.5mg (Moderna) 12/18/2021,05/24/2021 Hepatitis B, 20+ yrs 03/25/1998 Pneumococcal Conjugate Vacci ne, 20-valent ([id number]) 03/23/2022 Pneumococcal Polysaccharide PPV23 (Pneumovax) 12/03/2020 Seasonal [...] Tobacco: Never Alcohol Use Standard Drinks/Week Comments Not Currently 0 (1 standard drink = 0.6 oz [...] encounter Miscellaneous Notes * Telephone Encounter - Perez Trinidad DO - 07/21/2024 6:16 PM EST SPoke with Rani on phone. Currently doing well and sees HR in 50-60s. Does see her HR in 30s during day but able to increase it up to 60s with activity/walking around. Advised her to reduce to oncedaily and we can change her to long acting ToprolXL 12.5 mg/day when she returns. She verablized understanding and agreed with plan. Her Kardia monitor shows her in sinus rhythm currently with HR in 5 0-60s. All questions answered. Perez Trinidad DO 07/21/2024 6:17 PM * Telephone Encounter - Adilson Khan LPN - 07/21/2024 2:51 PM EST Incoming call today from patient Patient [place] She reports per her WHATT mobile device he HR is in the 30-40s She is reporting being lightheaded and some SOB with exertion She is asking if metoprolol dose can be lowered or stopped since HR is so low Could she take this as needed ??? For when she has AFIB She is on eliquis as well Patient asks that if we viviana back and she does not answer PLEASE leave a message Adilson Khan LPN 07/21/2024 2:54 PM documented in this encounter Plan of Treatment Upcoming Encounters Date Type Department Care Team (Late st Contact Info) Description 12/12/2024 2:00 PM EDT Office Visit Cardiology [facility] [place] [address] [place] [address] Andrew King DO [address] [place] [address] 06/25/2025 10:45 AM EST Office Visit Dermatology [facility] [address] [id number] Vaibhav Diaz MD [address] [place] [id number] Scheduled Procedures Name Priority Associated Diagnoses Date/Ti [...] D LEVEL ONCE IN A LIFETIME-USE SMARTSET# [id number] Completed 01/14/2022, 03/19/2017, 11/08/2014, Additional history exists [...] filedocumented as of this encounter Care Teams Substation Inspector Relationship Specialty Start Date End Date Pat Hatfield DO [address] [place] [address] PCP - General Family Medicine 11/28/20 documented as of this encounter
--- OUTSIDE RECORDS SUMMARY | 2024-08-09 08:09 | External Medical Summary | Summary of Care ---
Author Name Unknown Organization [facility] Address [address] [facility] [address] Phone [phone] Care Team Providers Care Hematology Technician Name Role Phone Pat Hatfield DO Primary Care Provider [phone] Reason for Visit * Reason Onset Date Comments Test Results 07/03/2024 Encounter Details Date Type Department Care Team (Late st Contact Info) Description 07/03/2024 Telephone Family Practice [facility] [address] [place] [address] Pat Hatfield DO [address] [place] [address] Test Results Allergies Active Allergy Reactions Criticality Noted Date Comments Doxycycline 06/22/2023 Other Reaction(s): makes asthma worse, 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 documented as of this encounter (statuses as of 07/04/2024) Medications Cholecalciferol (VITAMIN D3) 5000 UNITS Tablet [...] as of this encounter (statuses as of 07/04/2024) Active Problems Problem Noted Date Diagnosed Date Age-related osteoporosis wit hout current pathological fracture 12/03/2020 Overview (12/03/2020): Previous prune study - showed improvement Following w/endocrinology History of papillary adenocarcinoma of thyroid 0 12/03/2020 Postsurgical hypothyroidism 12/03/2020 Asthma documented as of this encounter (statuses as of 07/04/2024) Resolved Problems Problem Noted Date Diagnosed Date [...] as of this encounter (statuses as of 07/04/2024) Immunizations Name Administration Dates Next Due COVID-19 mRNA, LNP-s, No Pre serve, 2-Dose Series (Moderna) 09/28/2020,08/24/2020 COVID-19, MRNA-LNP, PF, 30 M CG/0.3 mL, 12 YRS AND ABOVE, IM (SpectraSensors-Comirnaty) 06/15/2024 COVID-19, mRNA, LNP-s, PF, B ooster, 100mcg/0.5mg (Moderna) 12/18/2021,05/24/2021 HEP A - Hepatitis A (Adult > 18 yrs) 01/06/2005 Hepatitis B Vaccine 03/25/1998 04/25/1998 Hepatitis B, 20+ yrs 10/27/1999,05/26/1999,03/25 Meningococcal Polysaccharide Vaccine ([place]) 05/26/1999 PPD 03/24/2005,02/11/2005 Pneumococcal Conjugate Vacci ne, 20-valent ([id number]) 03/23/2022 Pneumococcal Polysaccharide PPV23 (Pneumovax) 12/03/2020 Seasonal [...] 3:37 PM EDT Sexual Orientation Straight 03/19/2022 3 :37 PM EDT Occupation Industry Job Start Date Job End Date retired-[employer] Not on file Not on file Not on fi le documented as of this encounter Miscellaneous Notes * Telephone Encounter - Pat Hatfield, DO - 07/04/2024 1:17 PM EST Spoke w/patient She will f/u w/pharmacy If no sooner cardio appt requests referral for [place] in [place] * Telephone Encounter - Pat Hatfield DO - 07/03/2024 4:27 PM EST Myg to pt re:zio showing PAF Ordered eliquis and metoprolol 12.5mg BID Cardio looking for sooner f/u appt documented in this encounter Plan of Treatment Upcoming Encounters Date Type Department Care Team (Late st Contact Info) Description 11/14/2024 10:00 AM EDT Office Visit Cardiology, [facility] [address] [place] [address] Bishnu Hatfield DO [address] [place] [address] 06/25/2025 10:45 AM EST Office Visit Dermatology [facility] [address] [place] [address] Vaibhav Diaz MD [address] [facility] [place] [address] Scheduled Procedures Name Priority Associated Diagnoses Date/Ti [...] D LEVEL ONCE IN A LIFETIME-USE SMARTSET# [id number] Completed 01/14/2022, 03/19/2017, 11/08/2014, Additional history exists [...] fibrillation documented in this encounter Care Teams Hematology Technician Relationship Specialty Start Date End Date Pat Hatfield DO [address] [place] [address] PCP - General Family Medicine 11/28/20 documented as of this encounter
--- OUTSIDE RECORDS SUMMARY | 2024-08-09 08:09 | External Medical Summary | Summary of Care ---
Author Name Unknown Organization [facility] Address [address] [facility] [address] Phone [phone] Care Team Providers Care Commercial Lines Assistant Name Role Phone Pat Hatfield DO Primary Care Provider [phone] Reason for Visit * Reason Onset Date Comments Test Results 07/03/2024 Encounter Details Date Type Department Care Team (Late st Contact Info) Description 07/03/2024 Telephone Family Practice [facility] [address] [place] [address] Pat Haftield DO [address] [place] [address] Test Results Allergies Active Allergy Reactions Criticality [...] yrs 03/25/1998 Pneumococcal Conjugate Vacci ne, 20-valent ([id number]) 03/23/2022 Pneumococcal Polysaccharide PPV23 (Pneumovax) 12/03/2020 Seasonal [...] No 06/12/2024 Does the household have a [facility] source of income? (Household - for ages [...] 11/14/2024 10:00 AM EDT Office Visit Cardiology, [facility] [address] [place] [address] Bishnu Hatfield, [address] [place] [address] 06/25/2025 10:45 AM EST Office Visit Dermatology [facility] [address] [facility] [place] [address] Vaibhav Diaz MD [address] [facility] [place] [address] Scheduled Procedures Name Priority Associated Diagnoses Date/Ti [...] D LEVEL ONCE IN A LIFETIME-USE SMARTSET# [id number] Completed 01/14/2022, 03/19/2017, 11/08/2014, Additional history exists [...] fibrillation documented in this encounter Care Teams Commercial Lines Assistant Relationship Specialty Start Date End Date Pat Hatfield DO [address] [place] [address] PCP - General Family Medicine 11/28/20 documented as of this encounter
--- OUTSIDE RECORDS SUMMARY | 2024-08-09 08:09 | External Medical Summary | Continuity of Care Document ---
Author Name Unknown Organization [facility] [address] [place] [address] [place] [id number] Care Team Providers Care Coat Joiner Lockstitch Name Role Phone Pat Hatfield Primary Care Physician [phone] [phone] Date(s): 07/05/24 - 07/05/24 [facility] 200 [facility] Allergy, Asthma and Immunology [address] [facility] [place] [address] [phone] Encounter Diagnosis Asthma, mild persistent(Discharge Diagnosis) - 07/05/24 Chronic rhinitis(Discharge Diagnosis) - 07/05/24 Body mass index [BMI] 24.0-24.9, adult(Discharge Diagnosis) - 07/05/24 Discharge Disposition: Home or Self Care Attending Physician: MD Pam, Francesca Lin Referring Physician: DO Hatfield Laura M Allergies, Adverse Reactions, Alerts Substance Criticality Severity Reaction Reaction Severity Status doxycycline makes asthma worse Active Medications albendazole 200 mg oral tablet Start: 07/05/24 12:58:00 PM EST, 4 each, 0 Refill(s), Take 2 Tablets by mouth once for 1 dose. Repeat in 2 weeks. Start Date: 07/05/24 Status: Ordered Albuterol (Eqv-Ventolin HFA) 90 mcg/inh inhalation aerosol Start: 06/09/23 1:06:00 PM EST, 2 puff, inhaled, q6h, Disp# 1 each, Refills: 2, Pharmacy: [facility] Start Date: 06/09/23 Status: Ordered Asmanex HFA 50 mcg/inh inhalation aerosol Start: 07/05/24 1:39:00 PM EST, 2 inh, inhaled, bid, Disp# 1 each, Refills: 5, Pharmacy: [facility] Start Date: 07/05/24 Status: Ordered azelastine 137 mcg/inh (0.1%) nasal spray Start: 07/05/24 1:43:00 PM EST, 1 spray, each nostril, bid, Disp# 1 each, Refills: 5, PRN: as neededfor allergy symptoms, [facility] Start Date: 07/05/24 Status: Ordered Eliquis 5 mg oral tablet Start: 07/05/24 12:58:00 PM EST, 60 each, 0 Refill(s), Take 1 Tablet by mouth in the morning and 1 Tablet before bedtime. Start Date: 07/05/24 Status: Ordered estradiol 0.1 mg/g vaginal cream Start: 06/12/19 9:55:00 AM EST Start Date: 06/12/19 Status: Ordered eye promise Start: 05/14/15 7:41:00 AM EDT, eye promise, Note to Pharmacy: 1 cap PO daily Start Date: 05/14/15 Status: Ordered Synthroid Start: 03/03/23 11:20:00 AM EDT, 125 mcg =, Daily, takes 1/2 tab on Sundays Start Date: 03/03/23 Status: Ordered Synthroid 125 mcg (0.125 mg) oral tablet Start: 07/05/24 12:59:00 PM EST, 85 each, 0 Refill(s), Take 1 tablet daily Wed, 1/2 tablet on Wednesday Start Date: 07/05/24 Status: Ordered unlisted medication Start: 07/05/24 12:59:00 PM EST, 30 each, 0 Refill(s), Take 1/2 A Tablet by mouth in the morning and1/2 A Tablet before bedtime. Start Date: 07/05/24 Status: Ordered Mental Status 07/05/24 Barriers to Learning one year None evide nt Mandatory Health Literacy Documentation Yes Health Literacy Communication Barriers N ever Primary Language Azerbaijani Problem List Condition Confirmation Course Effective Dates Status H ealth Status Informant ACL - Anterior cruciate ligament 1 Confirmed Active Acute medial meniscal tear Confirmed Active Adhesive capsulitis of left shoulder Confirmed Active Anemia Confirmed Active Chondromalacia of knee Confirmed Active Fibromatosis, Dupuytren's Confirmed Active Hip fracture, right Confirmed Active Hand injury 2 Confirmed 03/24/12 Active Heel pain Confirmed Active Hip pain, right Confirmed Active S/P hip replacement Confirmed Active Hoarseness Confirmed Active Left wrist pain Confirmed Active Knee osteoarthritis Confirmed Active Macular degeneration Confirmed Active Bilateral primary osteoarthritis of knee Confirmed Active Right foot pain Confirmed Active Right knee pain Confirmed Active Lateral meniscus tear Confirmed Active 1Right knee 2Right hand Diagnosis Diagnosis Type Effective Dates Health Status Clinical Service Informant Asthma, mild persistent Discharge Diagnosis 07/05/24 Non-Specified Chronic rhinitis Discharge Diagnosis 07/05/24 Non-Specified Body mass index [BMI] 24.0-24.9, adult Discharge Diagnosis 07/05/24 Non-Specified Procedures Procedure Date Related Diagnosis Body Site Status History of hip surgery 1 02/04/21 Completed Tonsillectomy 1974 Completed Inguinal hernia with incarceration 2 Completed 1right 2bilateral Aug 2018 Vital Signs Most recent to oldest [Reference Range]: 1 Height 163 cm (07/05/24 1:00 PM) Patient Weight 65.8 kg (07/05/24 1:00 PM) Body Mass Index 24.77 kg/m2 (07/05/24 1:00 PM) Temperature [36.5-37.9 DegC] 36.5 DegC (07/05/24 1:00 PM) Heart Rate 54 bpm (07/05/24 1:00 PM) Respiratory Rate 18 br/min (07/05/24 1:00 PM) Blood Pressure 124/70mmHg (07/05/24 1:00 PM) Cuff Pulse Pressure 54 mmHg (07/05/24 1:00 PM) BP Location # 1 Right Arm (07/05/24 1:00 PM) Social History Social History Type Response Smoking Status Never smoked cigaret merlin Sex Female Sex Representation Female (finding) Patient Care team information Care Team Personnel Name: DO Hatfield Laura M Position: Referring DIRECT Member Role: Primary Care Provider Address: [address] [address] [place] Care Team Related Persons Name: MUNDO FISHER Name: MUNDO FISHER
--- OUTSIDE RECORDS SUMMARY | 2024-08-09 08:09 | External Medical Summary | Summary of Care ---
Author Name Unknown Organization [facility] Address [address] [place] [address] Phone [phone] Care Team Providers Care Metal Precision Machine Assembler Name Role Phone Pat Hatfield DO Primary Care Provider Reason for Visit * Reason Onset Date Comments Referral 06/21/2024 Encounter Details Date Type Department Care Team (Late st Contact Info) Description 06/21/2024 New Patient Triage (BUILDING RENTAL SUPERINTENDENT USE ONLY) Cardiology, 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 15 g 12 4 Active Azithromycin 500 MG Oral Tablet (Zithromax)Indic ations:Moderate persistent asthma without complication Take 1 Tablet by mouth in the morning. RESCUE KIT. 5 Tablet 1 4 Active predniSONE 10 MG Oral Tablet (Deltasone)Indic ations:Moderate persistent asthma without complication Take 2 Tabs Daily in AM with meals x 5 days; then 1 Tab daily with meals x 5 days; then 1/2 tab daily with meals for 5 days, and STOP. RESCUE KIT 18 Tablet 1 4 Active documented as of this encounter (statuses as of 06/24/2024) Active Problems Problem Noted Date Diagnosed Date Age-related osteoporosis wit hout current pathological fracture 12/03/2020 Overview (12/03/2020): Previous prune study - showed improvement Following w/endocrinology History of papillary adenocarcinoma of thyroid 0 12/03/2020 Postsurgical hypothyroidism 12/03/2020 Asthma documented as of this encounter (statuses as of 06/24/2024) Resolved Problems Problem Noted Date Diagnosed Date [...] as of this encounter (statuses as of 06/24/2024) Immunizations Name Administration Dates Next Due COVID-19 mRNA, LNP-s, No Pre serve, 2-Dose Series (Moderna) 09/28/2020,08/24/2020 COVID-19, MRNA-LNP, PF, 30 M CG/0.3 mL, 12 YRS AND ABOVE, [facility] 06/15/2024 COVID-19, mRNA, LNP-s, PF, B ooster, 100mcg/0.5mg (Moderna) 12/18/2021,05/24/2021 Hepatitis B, 20+ yrs 03/25/1998 Pneumococcal Conjugate Vacci ne, 20-valent ([id number]) 03/23/2022 Pneumococcal Polysaccharide PPV23 (Pneumovax) 12/03/2020 Seasonal [...] 06/12/2024 Does the household have a re gular source of income? (Household - for ages [...] fi le documented as of this encounter Progress Notes * Nhung Sanchez CRNP - 06/24/2024 7:42 AM EST Does patient need to be seen?: Yes Modality: Office visit Urgency: Within 30 days (routine) Discussed care plan with patient or proxy?: Yes Sherylhart Communicated with patient on Date (mm/dd/yyyy): 06/21/2024 at Time ([facility]): [phone] 68 year old female referred by PCP for palpitations and tachycardia. [place] and [place]. He currently has an appt scheduled in [place] 08/07/2024. Awaiting ZIO results. Ok to establish care with us, unless she prefers to just be followed in [place]. Appropriate referral. Thank you, DEVON Mayfield Cardiology [facility] * Yuval Gurrola OSA - 06/22/2024 9:11 AM EST Patient has been added to the wait-list if someone should cancel. * Socrates Stephenson LPN - 06/21/2024 11:27 AM EST New Patient Triage What is the diagnosis/reason for referral?: Tachycardia, Palpitations Enter order ID here: [id number] Specialty specific documentation: Cardiology Structural Heart Discussed care plan with patient or proxy?: Yes via Banc[employer] Communicated with patient on Date (mm/dd/yyyy): 06/21/24 at Time ([facility]): 11:27 am Patient established with [facility] in [place]. Travel[place] and [place] 14 day Zio ordered by PCP at office visit on 06/13/24 due to palpitations and tachycardia. Last echo on file dated 10/27/22. Patient has a cardiology follow up appointment scheduled in [place] on 08/07/24. Sent patient a YouWeb message to verify she is establishing care when in [place]. Awaiting reply and Zio results. Per PCP's office notes: BP was elevated during mammogram in [place]. Also elevated when in [place] but better today. [place]. Having episodes of tachycardia, saw cardiology in Aug - thought to be multifactorial. Went to the ER, no other concerning signs. Last month had an episode of tachycardia w/HR of 155 for about 5 hours. She was symptomatic, felt poorly during it, nauseous. documented in this encounter Plan of Treatment Upcoming Encounters Date Type Department Care Team (Late st Contact Info) Description 11/14/2024 10:00 AM EDT Office Visit Cardiology, [facility] [address] [place] [address] Bishnu Hatfield, [address] [place] [address] 06/25/2025 10:45 AM EST Office Visit Dermatology [facility] [place] [address] [facility] [place] [address] Vaibhav Diaz MD [address] [facility] [place] [address] Scheduled Procedures Name Priority Associated Diagnoses Date/Ti me COLONOSCOPY FLEXIBLE PROXIMAL DIAGNOSTIC Recall History of colon polyps Health Maintenance Due Date Last Done Comments Cologuard 2000 Fecal Occult Blood Test 2000 Sigmoidoscopy 2000 TSH 02/07/2024 02/06/2023, 12/31, 06/10/2018, Additional history exists Mammogram 04/28/2025 04/28/2024, 0911/2022, 03/09/2022, Additional history exists Depression Screening 06/13/2025 [...] D LEVEL ONCE IN A LIFETIME-USE SMARTSET# [id number] Completed 01/14/2022, 03/19/2017, 11/08/2014, Additional history exists [...] filedocumented as of this encounter Care Teams Metal Precision Machine Assembler Relationship Specialty Start Date End Date Pat Hatfield DO [address] [place] [address] PCP - General Family Medicine 11/28/20 documented as of this encounter
--- OUTSIDE RECORDS SUMMARY | 2024-08-09 08:09 | External Medical Summary | Summary of Care ---
Author Name Unknown Organization [facility] Address [address] [place] [address] Phone [phone] Care Team Providers Care Manager Loan Name Role Phone Lacy Irene DO Primary Care Provider Reason for Visit * Reason Comments Skin Check Annual FBSE . Pt sta merlin new skin concern located on R bicep. 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 RESCUE KIT 18 Tablet 1 3 Active Additional Information Patient not taking.Reported on 06/15/2024 Azithromycin 500 MG Oral Tablet (Zithromax)Indic ations:Moderate persistent asthma without complication Take 1 Tablet by mouth in the morning. RESCUE KIT. 5 Tablet 1 4 Active Additional Information Patient not taking.Reported on 06/15/2024 Levalbuterol Tartrate 45 MCG/ACT Inhalation Aerosol (Xopenex HFA)Indications: Moderate asthma with exacerbation, unspecified whether persistent,Tachy cardia Inhale 1 Puff by mouth every 4 hours as needed for Wheezing. 15 g 12 4 Active documented as of this encounter (statuses as of 06/15/2024) Active Problems Problem Noted Date Diagnosed Date Age-related osteoporosis wit hout current pathological fracture 12/03/2020 Overview (12/03/2020): Previous prunkassie study - showed improvement Following w/endocrinology History of papillary adenocarcinoma of thyroid 0 12/03/2020 Postsurgical hypothyroidism 12/03/2020 Asthma documented as of this encounter (statuses as of 06/15/2024) Resolved Problems Problem Noted Date Diagnosed Date Resolved Date Papillary thyroid carcinoma 03/22/2017 12/03/2020 Overview (02/10/2018): S/p thyroidectomy Strep sore throat 05/14/2011 08/31/2011 Menopause 03/10/2011 06/01/2017 ADVANCE DIRECTIVE INFORMATION 10/04/2006 06/17/2017 Overview (10/04/2006): Yes, Patient instructed to provide copy of advance directive for provider to review and to be scanned into Electronic Medical Record Menstruation, irregular 06/20/2001/0 04/2011 IRON DEFIC ANEMIA NOS 06/20/20012016 documented as of this encounter (statuses as of 06/15/2024) Immunizations Name Administration Dates Next Due COVID-19 mRNA, LNP-s, No Pre serve, 2-Dose Series (Moderna) 09/28/2020,08/24/2020 COVID-19, MRNA-LNP, PF, 30 M CG/0.3 mL, 12 YRS AND ABOVE, IM ([facility]) 06/15/2024 COVID-19, mRNA, LNP-s, PF, B ooster, 100mcg/0.5mg (Moderna) 12/18/2021,05/24/2021 Hepatitis B, 20+ yrs 03/25/1998 Pneumococcal Conjugate Vacci ne, 20-valent ([id number]) 03/23/2022 Pneumococcal Polysaccharide PPV23 (Pneumovax) 12/03/2020 Seasonal [...] as of this encounter Progress Notes * Vaibhav Diaz MD - 06/15/2024 8:51 AM EST SUBJECTIVE: Chief Complaint: Chief Complaint Patient presents with Skin Check Annual FBSE . Pt states new skin concern located on R bicep. Pt has a spot on R side of back that is a concern - this spot was from a previous removal for a biopsy. Hx - AK HPI: Rani England is a 68 year old female seen for a full skin check. Has a spot on right bicepthat she'd like me to examine. 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 DERMATOLOGIC HISTORY: No prior history of skin cancer Son with history of skin cancer REVIEW OF SYSTEMS: CONSTITUTIONAL: negative SKIN: No new or changing moles or rashes other than those noted in HPI HEME/LYMPH: No new or enlarging lumps or bumps OBJECTIVE: GEN: Healthy, alert, no distress, appears oriented, pleasant, and cooperative SKIN: Detailed exam of hair, face, trunk, arms, and legs At the trunk and extremities are several scattered powell/brown hyperkeratotic stuck on appearing waxypapules. Scattered on the chest, abdomen, back upper and lower extremities are multiple evenly pigmented brown macules and papules without significant irregularity. Uniform appearing brown macules and patches in sun exposed areas. Right upper back - mildly hypertrophic scar Right upper arm - waxy hyperkeratotic stuck-on appearing papule ASSESSMENT/PLAN: Seborrheic keratoses, multiple melanocytic nevi, and solar lentigines - Benign. Reassurance. - Dermoscopy was used for physical examination of pigmented lesions during todays office visit. - No features concerning for malignancy on exam today. - Discussed and emphasized importance of sun protection with SPF >30 and sun protective attire - Patient to contact physician for any new or changing lesions or other concerns. Hypertrophic scar - mild, mostly resolved with clobetasol, can continue prn Seborrheic keratosis - The benign nature of these lesions was discussed with the patient and that no treatment is indicated today. Vaibhav Diaz MD REF: VAIBHAV DIAZ [address] [place], [place] [address] [id number] (office) [phone] (fax) PCP: LACY IRENE [address] [place] [address] [phone] documented in this encounter Nursing Notes * Jacquie Neal MED ASSIST - 06/15/2024 8:38 AM EST Chief Complaint Patient presents with Skin Check Annual FBSE . Pt states new skin concern located on R bicep. Pt has a spot on R side of back that is a concern - this spot was from a previous removal for a biopsy. Hx - AK documented in this encounter Plan of Treatment Upcoming Encounters Date Type Department Care Team (Late st Contact Info) Description 11/14/2024 10:00 AM EDT Office Visit Cardiology, [facility] [address] [place] [address] Bishnu Hatfield O, DO [address] [place] [address] 06/25/2025 10:45 AM EST Office Visit Dermatology [facility] [address] [facility] [place] [address] Vaibhav Diaz MD [address] [facility] [place] [address] Scheduled Procedures Name Priority Associated Diagnoses Date/Ti [...] D LEVEL ONCE IN A LIFETIME-USE SMARTSET# [id number] Completed 01/14/2022, 03/19/2017, 11/08/2014, Additional history exists [...] as of this encounter Visit Diagnoses Diagnosis Actinic skin damage- Primary Other dermatitis due to solar radiation Multiple melanocytic nevi Benign neoplasm of skin, site unspecified Seborrheic keratoses Scar Scar condition and fibrosis of skin documented in this encounter Care Teams Manager Loan Relationship Specialty Start Date End Date Lacy Irene DO [address] [place] [address] PCP - General Family Medicine 11/28/20 documented as of this encounter
--- OUTSIDE RECORDS SUMMARY | 2024-08-09 08:09 | External Medical Summary | Summary of Care ---
Author Name Unknown Organization [facility] Address [address] [place] [address] Phone [phone] Care Team Providers Care Homicide Detective Name Role Phone Pat Hatfield DO Primary Care Provider Reason for Visit * Reason Comments Acute Encounter Details Date Type Department Care Team (Late st Contact Info) Description 08/07/2024 4:00 PM [facility] [place] [address] [facility] [place] [address] Zafar Hatfield DO [address] [facility] [place] [address] Paroxysmal atrial fibrillation (HCC)*; Papillary thyroid carcinoma (HCC); Acute non-recurrent maxillary sinusitis; Postsurgical hypothyroidism; Mild intermittent asthma without complication Allergies Active Allergy Reactions Criticality Noted Date Comments Doxycycline 06/22/2023 Other Reaction(s): makes asthma worse, 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 18 g 5 3 Active Levalbuterol Tartrate 45 MCG/ACT Inhalation Aerosol [...] RESCUE KIT 18 Tablet 1 4 Active Apixaban 5 MG Oral Tablet (Eliquis)Indicat ions:PAF (paroxysmal atrial fibrillation) (HCC) Take 1 Tablet by mouth in the morning and 1 Tablet before bedtime. 60 Tablet 5 4 Active Systane ICaps AREDS2 Oral Capsule Take by mouth every morning. Active Tea Tree Oil Oil as needed. Ac tive Asmanex HFA 50 MCG/ACT Inhalation Aerosol 4 Active Fluticasone Propionate 50 MCG/ACT Nasal Suspension (Flonase) Administer into nostril as needed. Active Benzonatate 100 MG Oral Capsule (Tessalon Perldat) Take 1 Capsule by mouth as needed. Active Azelastine HCl 0.1 % Nasal Solution (Astelin) Administer into nostril as needed. 4 Active Albuterol Sulfate HFA 108 (90 Base) MCG/ACT Inhalation Aerosol Solution Q4H 3 Active Metoprolol Succinate ER 25 MG Oral Tablet Extended Release 24 Hour (Toprol XL) Take 0.5 Tablets by mouth in the morning. 45 Tablet 3 4 Active Amoxicillin-Pot Clavulanate 875-125 MG Oral Tablet (Augmentin)Indic ations:Acute non-recurrent maxillary sinusitis Take 1 Tablet by mouth in the morning and 1 Tablet before bedtime. Do all this for 10 days. 20 Tablet 5 08/17/19 25 Active documented as of this encounter (statuses as of 08/07/2024) Active Problems Problem Noted Date Diagnosed Date Paroxysmal atrial fibrillation 08/07/2024 Papillary thyroid carcinoma 08/07/2024 Age-related osteoporosis wit hout current pathological fracture 12/03/2020 Overview (12/03/2020): Previous prune study - showed improvement Following w/endocrinology History of papillary adenocarcinoma of thyroid 0 12/03/2020 Postsurgical hypothyroidism 12/03/2020 Asthma documented as of this encounter (statuses as of 08/07/2024) Resolved Problems Problem Noted Date Diagnosed Date [...] as of this encounter (statuses as of 08/07/2024) Immunizations Name Administration Dates Next Due COVID-19 mRNA, LNP-s, No Pre serve, 2-Dose Series (Moderna) 09/28/2020,08/24/2020 COVID-19, MRNA-LNP, PF, 30 M CG/0.3 mL, 12 YRS AND ABOVE, IM ([email or web address]) 06/15/2024 COVID-19, mRNA, LNP-s, PF, B ooster, 100mcg/0.5mg (Moderna) 12/18/2021,05/24/2021 Hepatitis B, 20+ yrs 03/25/1998 Pneumococcal Conjugate Vacci ne, 20-valent ([id number]) 03/23/2022 Pneumococcal Polysaccharide PPV23 (Pneumovax) 12/03/2020 Seasonal [...] Not on file Not on fi le Travel History Travel Start Travel End [place] 07/16/2024 07/31/2024 documented as of this encounter Progress Notes * Zafar Hatfield, - 08/07/2024 3:51 PM EST Subjective: Rani England is a 69 year old female. Chief Complaint Patient presents with Acute Patient location: HOME. I was in a hospital or clinic location. After connecting through [employer],patient was verified with two unique identifiers. Patient (or authorized legal bilingual call center representative) was then informed that this was a Telemedicine visit and being conducted confidentially over secure lines. Methods to assure confidentiality were taken. Patient acknowledged consent and understanding of pr ivacy and security of the Telemedicine visit. The patient agreed to participate., HPI: PT here for acute. She was in [place] for [place]. She got sick on 07/23. He got a little better with time. Still had fevers and sinus congestion. She has been getting worse. Sinuses better for a short period and then worse again. Hurts when she bends forward. More on the left. Still with a fever around 100. She tried warm compresses and netipot and also a nasal spray. Some L sided ear pain. Some mild wheezing. USes Dulera and pushed dose and it helped. Bringing up some thick mucous. PMHx, meds, and allergies reviewed Patient Active Problem List Diagnosis Age-related osteoporosis without current pathological fracture History of papillary adenocarcinoma of thyroid Postsurgical hypothyroidism Asthma Paroxysmal atrial fibrillation (HCC) Papillary thyroid carcinoma (HCC) Current Outpatient Medications Medication Sig Dispense Refill Cholecalciferol (VITAMIN D3) 5000 UNITS Tablet 1 Capsule. Estradiol 0.1 MG/GM vaginal cream Multiple Vitamins-Minerals (PRESERVISION AREDS) Capsule Take by mouth. Synthroid 125 MCG Oral Tablet TAKE 1 TABLET BY MOUTH ONCE DAILY IN THE MORNING Full Kit Nebulizer Set Use with Nebulizer Medication as directed 1 Each 3 Budesonide 0.25 MG/2ML Inhalation Suspension (Pulmicort) Inhale 0.25 mg via nebulizer in the morning. 260 mL 0 Dulera 50-5 MCG/ACT Inhalation Aerosol (Mometasone Furo-Formoterol Fum) Inhale 2 Puffs by mouth in the morning and 2 Puffs before bedtime. (Patient taking differently: Inhale 2 Puffs by mouth in the morning and 2 Puffs before bedtime. Pt takes 1 puff twice daily.) 13 g 5 Ventolin HFA 108 (90 Base) MCG/ACT Inhalation Aerosol Solution Inhale 2 Puffs by mouth every 6 hours as needed for Wheezing, Dyspnea, Cough or Shortness of Breath. 18 g 5 Levalbuterol Tartrate 45 MCG/ACT Inhalation Aerosol (Xopenex HFA) Inhale 1 Puff by mouth every 4 hours as needed for Wheezing. 15 g 12 Azithromycin 500 MG Oral Tablet (Zithromax) Take 1 Tablet by mouth in the morning. RESCUE KIT. 5 Tablet 1 predniSONE 10 MG Oral Tablet (Deltasone) Take 2 Tabs Daily in AM with meals x 5 days; then 1 Tab daily with meals x 5 days; then 1/2 tab daily with meals for 5 days, and STOP. RESCUE KIT 18 Tablet 1 Apixaban 5 MG Oral Tablet (Eliquis) Take 1 Tablet by mouth in the morning and 1 Tablet before bedtime. 60 Tablet 5 Systane ICaps AREDS2 Oral Capsule Take by mouth every morning. Tea Tree Oil Oil as needed. Asmanex HFA 50 MCG/ACT Inhalation Aerosol Fluticasone Propionate 50 MCG/ACT Nasal Suspension (Flonase) Administer into nostril as needed. Benzonatate 100 MG Oral Capsule (Tessalon Perles) Take 1 Capsule by mouth as needed. Azelastine HCl 0.1 % Nasal Solution (Astelin) Administer into nostril as needed. Albuterol Sulfate HFA 108 (90 Base) MCG/ACT Inhalation Aerosol Solution Q4H Metoprolol Succinate ER 25 MG Oral Tablet Extended Release 24 Hour (Toprol XL) Take 0.5 Tablets by mouth in the morning. 45 Tablet 3 No current facility-administered medications for this visit. 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 Estimated body mass index is 24.61 kg/m as calculated from the following: Height as of 07/11/24: 5' 4" (1.626 m). Weight as of 07/11/24: 143 lb 6.4 oz (65 kg). BP Readings from Last 3 Encounters: 07/11/24 126/66 06/13/24 112/68 11/25/23 118/60 Wt Readings from Last 3 Encounters: 07/11/24 143 lb 6.4 oz (65 kg) 06/13/24 141 lb 6.4 oz (64.1 kg) 11/25/23 154 lb (69.9 kg) ROS: Negative except for above PHYSICAL EXAM: General: alert, healthy, and no distress Head: Normocephalic, No masses, lesions, tenderness or abnormalities ASSESSMENT/Plan Paroxysmal atrial fibrillation (HCC) (Primary) Papillary thyroid carcinoma (HCC) Acute non-recurrent maxillary sinusitis - Amoxicillin-Pot Clavulanate 875-125 MG Oral Tablet (Augmentin); Take 1 Tablet by mouth in the morning and 1 Tablet before bedtime. Do all this for 10 days. Postsurgical hypothyroidism Mild intermittent asthma without complication Multiple chronic stable problems reviewed. Will start abx. The above was discussed and understanding was expressed. Zafar Hatfield DO documented in this encounter Plan of Treatment Upcoming Encounters Date Type Department Care Team (Late st Contact Info) Description 12/12/2024 2:00 PM EDT Office Visit Cardiology [facility] [address] [place] [address] Andrew King DO [address] [place] [address] 06/25/2025 10:45 AM EST Office Visit Dermatology [facility] [place] [address] [facility] [place] [address] Vaibhav Diaz MD [address] [facility] [place] [address] Scheduled Procedures Name Priority Associated Diagnoses Date/Ti [...] D LEVEL ONCE IN A LIFETIME-USE SMARTSET# [id number] Completed 01/14/2022, 03/19/2017, 11/08/2014, Additional history exists Pneumococcal Vaccine: 50+ Years Completed 03/23/2022, 12/03/2020 RETIRED - COLONOSCOPY-EVERY [...] as of this encounter Visit Diagnoses Diagnosis Paroxysmal atrial fibrillation (HCC)- Primary Atrial fibrillation Papillary thyroid carcinoma (HCC) Malignant neoplasm of thyroid gland Acute non-recurrent maxillary sinusitis Postsurgical hypothyroidism Mild intermittent asthma without complication Unspecified asthma documented in this encounter Care Teams Homicide Detective Relationship Specialty Start Date End Date Pat Hatfield DO [address] [place] [address] PCP - General Family Medicine 11/28/20 documented as of this encounter
--- OUTSIDE RECORDS SUMMARY | 2024-08-09 08:09 | External Medical Summary | Summary of Care ---
Author Name Unknown Organization [facility] Address [address] [place] [address] Phone [phone] Care Team Providers Care Filing And Polishing Supervisor Name Role Phone Pat Hatfield DO Primary Care Provider [phone] Reason for Referral * Evaluate & Treat - Unlimited Visits (Within 10 days (routine)) - Pending Review Specialty Diagnoses / Procedures Referred By Contact Referred To Contact Cardiac Electrophysiology / Cardiology Diagnoses Paroxysmal atrial fibrillation (HCC) Andrew King DO [address] [place] [address] Phone: tel:[phone] fax:[phone] Referral ID Status Reason Start Date Expiration Date Visits Requested Visits Authorized [id number] Pending Review Specialty Services Required [phone] Question Answer Referral Priority Within 10 days (routine) Where should this appointment be scheduled? 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 60 Tablet 5 4 Active Metoprolol Tartrate 25 MG Oral Tablet (Lopressor)Indic ations:PAF (paroxysmal atrial fibrillation) (HCC) Take 0.5 Tablets by mouth in the morning and 0.5 Tablets before bedtime. 30 Tablet 5 4 Active Systane ICaps AREDS2 Oral Capsule Take by mouth every morning. Active Tea Tree Oil Oil as needed. Ac tive Asmanex HFA 50 MCG/ACT Inhalation Aerosol 4 Active Fluticasone Propionate 50 MCG/ACT Nasal Suspension (Flonase) Administer into nostril as needed. Active Benzonatate 100 MG Oral Capsule (Tessalon Perles) Take 1 Capsule by mouth as needed. Active Azelastine HCl 0.1 % Nasal Solution (Astelin) Administer into nostril as needed. 4 Active Albuterol Sulfate HFA 108 (90 Base) MCG/ACT Inhalation Aerosol Solution Q4H 3 Active documented as of this encounter (statuses as of 07/13/2024) Active Problems Problem Noted Date Diagnosed Date Age-related osteoporosis wit hout current pathological fracture 12/03/2020 Overview (12/03/2020): Previous prune study - showed improvement Following w/endocrinology History of papillary adenocarcinoma of thyroid 0 12/03/2020 Postsurgical hypothyroidism 12/03/2020 Asthma documented as of this encounter (statuses as of 07/13/2024) Resolved Problems Problem Noted Date Diagnosed Date [...] as of this encounter (statuses as of 07/13/2024) Immunizations Name Administration Dates Next Due COVID-19 mRNA, LNP-s, No Pre serve, 2-Dose Series (Moderna) 09/28/2020,08/24/2020 COVID-19, MRNA-LNP, PF, 30 M CG/0.3 mL, 12 YRS AND ABOVE, IM (Fanear-Comirnaty) 06/15/2024 COVID-19, mRNA, LNP-s, PF, B ooster, 100mcg/0.5mg (Moderna) 12/18/2021,05/24/2021 Hepatitis B, 20+ yrs 03/25/1998 Pneumococcal Conjugate Vacci ne, 20-valent ([id number]) 03/23/2022 Pneumococcal Polysaccharide PPV23 (Pneumovax) 12/03/2020 Seasonal [...] Date Smoking Tobacco: Never Smokeless Tobacco: Never Tobacco Cessation:Counseling Given: Not Answered Alcohol Use Standard Drinks/Week Comments Not Currently [...] fi le documented as of this encounter Last Filed Vital Signs Vital Sign Reading Time Taken Comments Blood Pressure 126/66 07/11/2024 2:28 PM EST Pulse 80 07/11/2024 2:28 PM EST Temperature - - Respiratory Rate - - Oxygen Saturation 99% 07/11/2024 2:28 PM EST Inhaled Oxygen Concentration - - Weight 65 kg (143 lb 6.4 oz) 07/11/2024 2:28 PM EST Height 162.6 cm (5' 4") 07/11/2024 2:28 PM EST Body Mass Index 24.61 07/11/2024 2:28 PM EST documented in this encounter Progress Notes * Perez Trinidad DO - 07/11/2024 3:42 PM EST I have discussed the patient's management with the resident/fellow physician and agree with the note. Please refer to the documented findings and plan of care. This patient's visit today consisted ofan evaluation. I was present and confirmed the findings of the history and exam. Perez Trinidad DO * Andrew King DO - 07/11/2024 2:19 PM EST Images from the original note were not included. History of Present Illness Rani England is a 69 year old female who presents for NEW PATIENT Pertinent PMHx: Newly discovered Paroxysmal Atrial Fibrillation Postsurgical Hypothyroidism Hx of papillary adenocarcinoma of thyroid Asthma We reviewed her medical hsistory dtaing back to approximately 9 year ago. She describes an event inJanuary of this year when [place] was in [place] when she developed palpitationswith a sensation of "a fish flopping in my chest" and evidence of HR up to high 100s on her ring that tracks her heart rate. She was seen by a core manager and ultimately decision made to monitor. She developed similar symptoms that persisted for several hours again in May similar to her prior episode and was seen by her primary care here in [place] who ordered a Zio. The Zio resulted revealing atrial fibrillation with a maximum duration of 4 hours. She is symptomatic with the atrial fibrillation with palpitations, malaise and nausea. Denies shest pain, pre-syncope or syncope with the episodes. ROS: ROS performed, negative except as stated in HPI above The patient's allergies, past history, and medications were reviewed Past Medical History: Diagnosis Date Asthma Dysphagia Thyroid nodule Past Surgical History: Procedure Laterality Date COLONOSCOPY 03/17/2007 normal, repeat in 10 yrs. COLONOSCOPY, DIAGNOSTIC (RECTUM) 05/12/2017 adenomatous polyp, repeat 5 yrs/COLONOSCOPY FLEXIBLE PROXIMAL DIAGNOSTIC performed by Odilon Jules MD at ENDOSCOPY [facility] COLONOSCOPY, DIAGNOSTIC (RECTUM) 05/29/2022 normal, repeat 5 yrs / COLONOSCOPY FLEXIBLE PROXIMAL DIAGNOSTIC performed by Annette Santos DO at ENDOSCOPY [facility] REMOVAL OF THYROID GLAND 03/16/2017 Thyroidectomy REMOVAL OF TONSILS, AGE 12+ REMOVE KNEE CARTILAGE, MED/LATERAL Left 06/25/2015 Knee meniscectomy, arthroscopic REPAIR INGUINAL HERNIA STRANGULATED, AGE 5 OR MORE Bilateral 08/30/2018 Family History Problem Relation Name Age of Onset Arthritis Mother rheumatoid Eye Problems Mother macular degeneration Musculo-skeletal Disorder Mother osteoporesis Thyroid Disorder Mother Cancer Sister breast, in her 40s Eye Problems Sister macular degeneration Cancer Grandmother (Maternal) breast Social History Tobacco Use Smoking status: Never Smokeless tobacco: Never Vaping Use Vaping status: Never Used Substance Use Topics Alcohol use: Not Currently Comment: 12 drinks a year Drug use: No Doxycycline Cardiac Medications: Apixaban 5 mg BID Metoprolol 12.5 mg BID Current Outpatient Medications: Apixaban 5 MG Oral Tablet (Eliquis), Take 1 Tablet by mouth in the morning and 1 Tablet before bedtime., Disp: 60 Tablet, Rfl: 5 Metoprolol Tartrate 25 MG Oral Tablet (Lopressor), Take 0.5 Tablets by mouth in the morning and 0.5Tablets before bedtime., Disp: 30 Tablet, Rfl: 5 Azithromycin 500 MG Oral Tablet (Zithromax), Take 1 Tablet by mouth in the morning. RESCUE KIT., Disp: 5 Tablet, Rfl: 1 predniSONE 10 MG Oral Tablet (Deltasone), Take 2 Tabs Daily in AM with meals x 5 days; then 1 Tab daily with meals x 5 days; then 1/2 tab daily with meals for 5 days, and STOP. RESCUE KIT, Disp: 18 Tablet, Rfl: 1 Levalbuterol Tartrate 45 MCG/ACT Inhalation Aerosol (Xopenex HFA), Inhale 1 Puff by mouth every 4 hours as needed for Wheezing., Disp: 15 g, Rfl: 12 Ventolin HFA 108 (90 Base) MCG/ACT Inhalation Aerosol Solution, Inhale 2 Puffs by mouth every 6 hours as needed for Wheezing, Dyspnea, Cough or Shortness of Breath., Disp: 18 g, Rfl: 5 Dulera 50-5 MCG/ACT Inhalation Aerosol (Mometasone Furo-Formoterol Fum), Inhale 2 Puffs by mouth inthe morning and 2 Puffs before bedtime. (Patient taking differently: Inhale 2 Puffs by mouth in themorning and 2 Puffs before bedtime. Pt takes 1 puff twice daily.), Disp: 13 g, Rfl: 5 Budesonide 0.25 MG/2ML Inhalation Suspension (Pulmicort), Inhale 0.25 mg via nebulizer in the morning., Disp: 260 mL, Rfl: 0 Full Kit Nebulizer Set, Use with Nebulizer Medication as directed, Disp: 1 Each, Rfl: 3 Synthroid 125 MCG Oral Tablet, TAKE 1 TABLET BY MOUTH ONCE DAILY IN THE MORNING, Disp: , Rfl: Multiple Vitamins-Minerals (PRESERVISION AREDS) Capsule, Take by mouth., Disp: , Rfl: Estradiol 0.1 MG/GM vaginal cream, , Disp: , Rfl: Cholecalciferol (VITAMIN D3) 5000 UNITS Tablet, 1 Capsule., Disp: , Rfl: Physical Exam/Data PHYSICAL EXAMINATION There were no vitals taken for this visit. There is no height or weight on file to calculate BMI. GENERAL APPEARANCE: Not in acute distress, sitting comfortably, speaking in full sentences EYES: no conjunctival injection, no eye discharge NECK: no lymphadenopathy, no thyroid enlargement or nodules. No carotid bruit. CVS: S1+ S2 +. Bradycardic rate, regular rhythm. No murmurs. No edema in lower extremities. PULMONARY: Lung sounds are equal bilaterally. No Rales, Rhonchi or wheezes appreciated. MUSCULOSKELETAL: Spontaneously moving all extremities. INSTALLATION AND REPAIR TECHNICIAN: Awake, Alert and oriented x 3. PSYCH: Mood and affect normal Laboratory Data: Reviewed in chart Results for orders placed or performed in visit on 11/08/14 LIPID PANEL Result Value Ref Range HOURS FASTING 12 hours Triglycerides 52 <200 mg/dL Cholesterol 210 (H) <200 mg/dL HDL Cholesterol 122 >39 mg/dL Cholesterol-HDL Ratio 1.7 LDL Cholesterol 78 0 - 129 mg/dL TTE (09/2022) SUMMARY: 1. Normal left ventricular systolic function, with an ejection fraction of 69 %. 2. Normal right ventricular size and systolic function. 3. No significant valvular abnormalities. 4. No prior echocardiogram available for comparison. External Monitor (06/13/24) REASON FOR STUDY: palpitations, episodes of tachycardia CONCLUSIONS: Duration: 13 days, 1 hour Patient had a min HR of 45 bpm, max HR of 219 bpm, and avg HR of 67 bpm. Predominant underlying rhythm was Sinus Rhythm. 5 Supraventricular Tachycardia runs occurred, the run with the fastest interval lasting 5 beats with a max rate of 164 bpm, the longest lasting 9 beats with an avg rate of 155 bpm. Atrial Fibrillation occurred (1% burden), ranging from 116-219 bpm (avg of 151 bpm), the longest lasting 4 hours 0 mins with an avg rate of 151 bpm. Atrial Fibrillation was detected within +/- 45 seconds of symptomatic patient event(s). Isolated SVEs were rare (<1.0%), SVE Couplets were rare (<1.0%), and SVE Triplets were rare (<1.0%). Isolated VEs were rare (<1.0%, 106), VE Couplets were rare (<1.0%, 5), and VE Triplets were rare (<1.0%, 1). Ventricular Trigeminy was present. Symptoms correlate with paroxysmal atrial fibrillation and rapid ventricular response. Ordering provider notified of results via staff message. EKG (06/13/24) Assessment and Plan Rani England with the above stated past medical history, presenting today for consultation due to newly diagnosed atrial fibrillation. #Atrial Fibrillation Symptoms began in August of this year, thought to be multi-factorial. Return of symptoms in May of this year prompting the ordering of Zio which revealed atrial fibrillation. Average rate duringatrial fibrillation ranging from 116-219 bpm (avg of 151 bpm) and longest duration of 4 hours. Started on metoprolol and eliquis. No heart failure signs or symptoms. We discussed rate control and rhyt hm control strategies. In discussion of rhythm control strategy, the patient expressed interest in pursuing ablation. She has done some research and is interested in hearing more about pulse field ablation. We reviewed that this is a variety of ablation that is not yet performed at this institutionand therefore we would need to send an external referral. She is interested in seeing external EP, referral placed. She now has an apple watch that has has afib detection therefore she should be ableto check her rhythm when symptomatic moving forward if wearing the watch. Recommendations: Ordered referral to EP, external Continue all other medications as prescribed: Apixaban 5 mg BID Metoprolol 12.5 mg BID Provided the patient with teaching about their chronic cardiovascular conditions Advised the patient that if they develop new or worsening cardiovascular symptoms to call our office and immediately seek medical assistance. Follow up in 3-6 months Wrap-Up Evaluated by and discussed with attending core manager: Dr. Trinidad Time: I spent a total of 30-39 minutes (exact time 35 mins) on the date of service in preparation, delivery, and documentation of the care provided to Rani England excluding any time spent in the performance of separately billed services. Andrew King DO Cardiovascular Disease Fellow, PGY4 [facility] Cardiology, [facility] [address] [place] [id number] documented in this encounter Plan of Treatment Upcoming Encounters Date Type Department Care Team (Late st Contact Info) Description 12/12/2024 2:00 PM EDT Office Visit Cardiology [facility] [address] [place] [address] Andrew King DO [facility] [place] [address] 06/25/2025 10:45 AM EST Office Visit [facility] [address] [place] [address] Vaibhav Diaz MD [address] [place] [phone] Scheduled Procedures Name Priority Associated Diagnoses Date/Ti me COLONOSCOPY FLEXIBLE PROXIMAL DIAGNOSTIC Recall History of colon polyps Scheduled Referrals Name Type Priority Associated Diagnoses Orde r Schedule ELECTROPHYSIOLOGY REFERRAL OP Referral Within 10 days (routine) Paroxysmal atrial fibrillation (HCC) Ordered: 07/11/2024 Health Maintenance Due Date Last Done Comments Cologuard 2000 Fecal Occult Blood Test 2000 Sigmoidoscopy 2000 TSH 02/07/2024 02/06/2023, 12/31, 06/10/2018, Additional history exists *BISPHONATE OR OTHER ACCEPTABLE MEDICATION NEEDED FOR OSTEOPOROSIS (REFER TO SMARTSET #1146) 07/02/2024 Mammogram 04/28/2025 04/28/2024, 11/2022, 03/09/2022, Additional history exists Depression Screening 06/13/2025 06/13/2024 Lipid Panel 12/12/2025 12/12/2020, 0 04/2015, 09/28/2013, Additional history exists DXA Scan [...] D LEVEL ONCE IN A LIFETIME-USE SMARTSET# [id number] Completed 01/14/2022, 03/19/2017, 11/08/2014, Additional history exists [...] Paroxysmal atrial fibrillation (HCC)- Primary Atrial fibrillation documented in this encounter Care Teams Filing And Polishing Supervisor Relationship Specialty Start Date End Date Pat Hatfield DO [address] [facility] [place] [address] PCP - General Family Medicine 11/28/20 documented as of this encounter
--- OUTSIDE RECORDS SUMMARY | 2024-08-09 08:10 | External Medical Summary | Summary of Care ---
Author Name Unknown Organization [facility] Address [address] [facility] [address] [facility] [address] Phone [phone] Care Team Providers Care Physician Office Nurse Name Role Phone Pat Hatfield DO Primary Care Provider [phone] Reason for Visit * Reason Comments Outpatient Testing Encounter Details Date Type Department Care Team (Late st Contact Info) Description 06/13/2024 12:30 PM EST Laboratory Laboratory, [facility] [address] [place] [id number] [facility] [address] [place] [address] Tachycardia; Screening for diabetes mellitus Allergies Active Allergy Reactions Criticality Noted Date Comments Doxycycline 06/22/2023 Other Reaction(s): makes asthma worse, 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 18 g 5 3 Active Additional Information Patient not taking.Reported on 06/13/2024 predniSONE 10 MG Oral Tablet (Deltasone)Indic ations:Moderate persistent asthma without complication Take 2 Tabs Daily in AM with meals x 5 days; then 1 Tab daily with meals x 5 days; then 1/2 tab daily with meals for 5 days, and STOP. RESCUE KIT 18 Tablet 1 3 Active Additional Information Patient not taking.Reported on 06/13/2024 Azithromycin 500 MG Oral Tablet (Zithromax)Indic ations:Moderate persistent asthma without complication Take 1 Tablet by mouth in the morning. RESCUE KIT. 5 Tablet 1 4 Active Additional Information Patient not taking.Reported on 06/13/2024 Levalbuterol Tartrate 45 MCG/ACT Inhalation Aerosol (Xopenex HFA)Indications: Moderate asthma with exacerbation, unspecified whether persistent,Tachy cardia Inhale 1 Puff by mouth every 4 hours as needed for Wheezing. 15 g 12 4 Active documented as of this encounter (statuses as of 06/13/2024) Active Problems Problem Noted Date Diagnosed Date Age-related osteoporosis wit hout current pathological fracture 12/03/2020 Overview (12/03/2020): Previous prune study - showed improvement Following w/endocrinology History of papillary adenocarcinoma of thyroid 0 12/03/2020 Postsurgical hypothyroidism 12/03/2020 Asthma documented as of this encounter (statuses as of 06/13/2024) Resolved Problems Problem Noted Date Diagnosed Date [...] as of this encounter (statuses as of 06/13/2024) Immunizations Name Administration Dates Next Due COVID-19 mRNA, LNP-s, No Pre serve, 2-Dose Series (Moderna) 09/28/2020,08/24/2020 COVID-19, mRNA, LNP-s, PF, B ooster, 100mcg/0.5mg (Moderna) 12/18/2021,05/24/2021 Hepatitis B, 20+ yrs 03/25/1998 Pneumococcal Conjugate Vacci ne, 20-valent ([id number]) 03/23/2022 Pneumococcal Polysaccharide PPV23 (Pneumovax) 12/03/2020 Seasonal [...] fi le documented as of this encounter Plan of Treatment Upcoming Encounters Date Type Department Care Team (Late st Contact Info) Description 06/15/2024 8:45 AM EST Office Visit [facility] [address] [facility] [place] [address] Vaibhav Diaz MD [address] [facility] [place] [address] 06/15/2024 10:15 AM EST Immunization [facility] [address] [place] [address] [facility] [address] [place] [address] 11/14/2024 10:00 AM EDT Office Visit Cardiology, [facility] [address] [place] [address] Bishnu Hatfield DO [address] [place] [address] Pending Results Name Type Priority Associated Diagnoses Date /Time BASIC METABOLIC PANEL Lab Routine Tachycardia 06/13/2024 11:13 AM EST MAGNESIUM Lab Routine Tachycardia 06/13/2024 11:13 AM EST FERRITIN Lab Routine Tachycardia 06/13/2024 11:13 AM EST IRON SCREEN, INCLUDING TIBC Lab Routine Tachycardia 06/13/2024 11:13 AM EST CBC WITH WBC DIFFERENTIAL Lab Routine Tachycardia 06/13/2024 11:13 AM EST HEMOGLOBIN A1C Lab Routine Screening for diabetes mellitus 06/13/2024 11:13 AM EST CBC Lab Routine Tachycardia 06/13/2024 11:13 AM EST DIFFERENTIAL, AUTOMATED Lab Routine Tachycardia 06/13/2024 11:13 AM EST Scheduled Procedures Name Priority Associated Diagnoses Date/Ti me COLONOSCOPY FLEXIBLE PROXIMAL DIAGNOSTIC Recall History of colon polyps Health Maintenance Due Date Last Done Comments Cologuard 2000 Fecal Occult Blood Test 2000 Sigmoidoscopy 2000 TSH 02/07/2024 02/06/2023, 12/31, 06/10/2018, Additional history exists COVID-19 Vaccine ( season) 2024 10/12/2023, 04/24/2023, 12/18/2021, Additional history exists Mammogram 04/28/2025 04/28/2024, 11/2022, [...] D LEVEL ONCE IN A LIFETIME-USE SMARTSET# [id number] Completed 01/14/2022, 03/19/2017, 11/08/2014, Additional history exists Pneumococcal Vaccine: 65+ Years Completed 03/23/2022, 12/03/2020 RETIRED - COLONOSCOPY-EVERY 5 YRS AGES 18-100 Discontinued 05/29/2022, 05/29/2022, 05/12/2017, Additional history exists Zoster Vaccines Completed 06/22/2022, 03/23/2022 Influenza Vaccine (FLU shot) Completed 06/13/2024, 06/07/2023, 06/01/2022, Additional history exists HPV (Gardasil) Vaccine Aged Out No lo nger eligible based on patient's age to complete this topic documented as of this encounter Medical Devices Not on filedocumented as of this encounter Visit Diagnoses Diagnosis Tachycardia Tachycardia, unspecified Screening for diabetes mellitus documented in this encounter Care Teams Physician Office Nurse Relationship Specialty Start Date End Date Pat Hatfield DO [address] [place] [address] PCP - General Family Medicine 11/28/20 documented as of this encounter
--- OUTSIDE RECORDS SUMMARY | 2024-08-09 08:10 | External Medical Summary | Summary of Care ---
Author Name Unknown Organization [facility] Address [address] [place] [facility] [place] [address] Phone [phone] Care Team Providers Care Review Assistant Name Role Phone Pat Hatfield DO Primary Care Provider [phone] Reason for Referral * Evaluate & Treat - Unlimited Visits (Within 10 days (routine)) - Pending Review Specialty Diagnoses / Procedures Referred By Contact Referred To Contact Cardiovascular Medicine / Cardiology Diagnoses Tachycardia Palpitations Pat Hatfield DO [address] [place] [address] Phone: tel: fax: Referral ID Status Reason Start Date Expiration Date Visits Requested Visits Authorized [id number] Pending Review Specialty Services Required [phone] Question Answer Referral Priority Within 10 days (routine) Where should this appointment be scheduled? [facility] To which of the following clinics are you referring your patient? [facility] Cardiology [facility] Reason for Visit * Reason Onset Date Comments Medication Problem Dry mouth, di scuss Dulera-sees pulm in [facility], foot/hand cramping x 1 yr, elevated bp, episode of tachy last Aug-saw cardiology, May 3 had tachy x 5 hrs Medication Administration 06/13/2024 Flu an d/or Pneumo Inj Encounter Details Date Type Department Care Team (Late st Contact Info) Description 06/13/2024 10:00 AM EST Office Visit [facility] [address] [place] [address] Pat Hatfield, DO [address] [place] [address] Tachycardia*; Postsurgical hypothyroidism; Moderate asthma with exacerbation, unspecified whether persistent; Palpitations; Risk and functional assessment; Need for prophylactic vaccination and inoculation against influenza; Screening for diabetes mellitus Allergies Active Allergy [...] and STOP. RESCUE KIT 18 Tablet 1 07/22/20 23 Active Additional Information Patient not taking.Reported on 06/13/2024 Azithromycin 500 MG Oral Tablet (Zithromax)Indic ations:Moderate persistent asthma without complication Take 1 Tablet by mouth in the morning. RESCUE KIT. 5 Tablet 1 11/24/19 24 Active Additional Information Patient not taking.Reported on 06/13/2024 Levalbuterol Tartrate 45 MCG/ACT Inhalation Aerosol (Xopenex HFA)Indications: Moderate asthma with exacerbation, unspecified whether persistent,Tachy cardia Inhale 1 Puff by mouth every 4 hours as needed for Wheezing. 15 g 12 06/13/20 24 Active zoster vac recomb adjuvanted (SHINGRIX) 50 MCG injectionIndicat ions:Need for shingles vaccine Inject 0.5 mL into a large muscle now and repeat dose in 60 to 180 days 1 Each 1 01/14/20 18 024 Discontin ued(Medic ation List Clean Up) Nirmatrelvir&Rit onavir 300/100 20 x 150 MG & 10 x 100MG Oral Tablet Therapy Pack (Paxlovid (300/100))Indica tions:COVID-19 virus infection Take 2 pink tablets of Nirmatrelvir and 1 white tablet of Ritonavir two times a day by mouth. 30 Tablet 07/04/20 23 024 Discontin ued(Medic ation List Clean Up) Amoxicillin-Pot Clavulanate 500-125 MG Oral Tablet (Augmentin) TAKE 2 TABLETS BY MOUTH TO START, THEN 1 TABLET EVERY 8 HOURS. 12/02/19 24 024 Discontin ued(Medic ation List Clean Up) documented as of this encounter (statuses as [...] yrs 03/25/1998 Pneumococcal Conjugate Vacci ne, 20-valent ([place]okowth21) 03/23/2022 Pneumococcal Polysaccharide PPV23 (Pneumovax) 12/03/2020 Seasonal [...] Sign Reading Time Taken Comments Blood Pressure 112/68 06/13/2024 9:48 AM EST Pulse 64 06/13/2024 9:48 AM EST Temperature 36.9 C (98.4 F) 06/13/2024 9:48 AM ES T Respiratory Rate 24 06/13/2024 9:48 AM EST Oxygen Saturation - - Inhaled Oxygen Concentration - - Weight 64.1 kg (141 lb 6.4 oz) 06/13/2024 9:48 A M EST Height 162.6 cm (5' 4") 06/13/2024 9:48 AM EST Body Mass Index 24.27 06/13/2024 9:48 AM EST documented in this encounter Patient Instructions * Patient Instructions* Zulema Grayson RN - 06/13/2024 9:53 AM EST Patient Instructions - Fall Prevention (This education is for all patients over 65 regardless of symptoms) Remember to take your current medications as prescribed. In order to prevent falls, you are encouraged to: Exercise Utilize assistive/adaptive devices Avoid multifocal lenses when walking Avoid hazards in home Maintain a regular toileting schedule Any questions please contact our office. Preventing Falls in the Home (This education is for all patients over 65 regardless of symptoms) As you get older, falls are more likely. Thats because your reaction time slows. Your muscles and joints may also get stiffer, making them less flexible. Illness, medications, and vision changes can also affect your balance. A fall could leave you unable to live on your own. To make your home safer, follow these tips: Floors Put nonskid pads under area rugs Remove throw rugs Replace worn floor coverings Tack carpets firmly to each step on carpeted stairs. Put nonskid strips on the edges of uncarpeted stairs Keep floors and stairs free of clutter and cords Arrange furniture so there are clear pathways Clean up any spills right away Bathrooms Install grab bars in the tub or shower Apply nonskid strips or put a nonskid rubber mat in the tub or shower Sit on a bath chair to bathe Use bathmats with nonskid backing Lighting Keep a flashlight in each room Put a nightlight along the pathway between the bedroom and the bathroom [employer] Patient Education Copyright 2008 - 2010 Bruno except where otherwise noted Preventing Falls: Exercises to Improve Balance, Flexibility, Strength, and Staying Power (This education is for all patients over 65 regardless of symptoms) Certain types of exercises may help make you less likely to fall. Try the ones below. Or do other exercises that your healthcare provider suggests. Depending on your health, you may need to start slowly. Dont let that stop you. Even small amounts of exercise can help you. Be sure to talk to yourhealthcare provider before starting any exercise program. Improve Balance Many types of exercise can help improve balance. Davy chi and yoga are good examples. Heres another one to try. You can do it anytime and almost anywhere. Stand next to a counter or solid support. Push yourself up onto your tiptoes. Hold for 5 seconds. If you start to lose your balance, hold on to the counter. Rest and repeat 5 times. Work up to holding for 20 to 30 seconds, if you can. Increase Flexibility Being more flexible makes it easier for you to move around safely. Try exercises like the seated hamstring stretch. Sit in a chair and put one foot on a stool. Straighten your leg and reach with both hands down either side of your leg. Reach as far down your leg as you can. Hold for about 20 seconds. Go back to the starting position. Then repeat 5 times. Switch legs. Build Strength Resistance exercises help build strength. You can do them without equipment. Or you can use weights, elastic bands, or special machines. One such exercise is called the biceps curl. You can hold a 1 pound weight or even a can of soup. Do this exercise at least 3 times a week. Strive for everyday. Sit up straight in a chair. Keep your elbow close to your body and your wrist straight. Bend your arm, moving your hand up to your shoulder. Then slowly lower your arm. Repeat 5 times. Switch to the other arm. Build Your Staying Power Aerobic exercises make your heart and lungs stronger so you can keep moving longer. Walking and swimming are two of the best types of exercises you can do. Using a stationary bike is great, too. Find an aerobic exercise that you enjoy. Start slowly and build up. Even 5 minutes is helpful. Aimfor a goal of 30 minutes, at least 3 times a week. You dont have to do 30 minutes in one session. Break it up and walk a little throughout the day. More Helpful Tips Start easy. Slowly work up to doing more. Talk with your healthcare provider about the best exercises for you. Call senior centers or health clubs about exercise programs. If needed, have a family member watch you walk every so often to check your stability. Exercise with a friend. Choose an activity you both enjoy. Try exercises that you can do anytime, anywhere. Here are two examples. Have someone with you when you first try these: Practice walking by placing one foot right in front of the other. Stand up and sit down 10 times. Repeat this throughout the day. Bruno Patient Education Copyright 2009 - 2010 Bruno except where otherwise noted. Preventing Falls: Moving Safely Using a Cane or Walker (This education is for all patients over 65 regardless of symptoms) Keep the cane away from your feet so you dont trip. A walking aid, such as a cane or walker, can help you stay more independent and avoid falls. Remember to keep your walking aid within easy reach when youre in a chair or in bed. And learn how to use it safely so you dont injure yourself. Using a Cane If you have a stronger side, hold the cane on that side. Get your balance. Move the cane and your weaker leg forward. Support your weight on both the cane and your weaker side. Step with your stronger leg. Start again from step 1. If youre using a folding walker, be sure you know how to lock it open. Check that its locked open before each use. Using a Walker Roll the walker (or lift it, if youre using one without wheels) forward about 12 inches. Step forward with your weaker leg first. Use the walker to help keep your balance. Bring your other foot forward to the center of the walker. Start again from step 1. Helpful Tips Check with your healthcare provider about the right walking aid to use. Ask about a walker with a seat attached. Check the tips of your cane or walker to make sure they have nonskid covers. Move slowly from room to room. Dont harris. Sit down to get dressed. Use a jose alfredo pack or backpack to keep your hands free. Get help for jobs that mean climbing, even on a stepstool. Bruno Patient Education Copyright 2008 - 2010 Bruno except where otherwise noted. Urinary Incontinence Plan of Care Documentation: (This education is for all patients over 65 regardless of symptoms) Current medications reconciled. Patient encouraged to: Practice kegal exercises Provide education materials Use the restroom every 2 hours throughout the day Limit caffeine, alcohol, spicy foods and acidic foods Keep a bladder diary Limit fluid intake 3-4 hours before bed Lose weight Prevent constipation Take fluid pills at a time when you can get to the bathroom quickly Control sugar better if diabetic Limit fluid intake to 60 oz. per day Wear support stockings (TEDs)if you have edema Zulema Grayson RN 06/13/2024 Kegel Exercises Kegel exercises dont require special clothing or equipment. Theyre easy to learn and simple to do. And if you do them right, no one can tell youre doing them, so they can be done almost anywhere. Your doctor, nurse, or physical therapist can answer any questions you have and help you get started. A Weak Pelvic Floor The pelvic floor muscles may weaken due to aging, and vaginal childbirth, injury, surgery, chronic cough, or lack of exercise. If the pelvic floor is weak, your bladder and other pelvic organs may sag out of place. The urethra may also open too easily and allow urine to leak out. Kegel exercises can help you strengthen your pelvic floor muscles so they can better support the pelvic organs and control urine flow. How Kegel Exercises Are Done Try each of the Kegel exercises described below. When youre doing them, try not to move your leg, buttock, or stomach muscles. While youre urinating, try to stop the flow of urine. Start and stop it as often as you can. Contract as if you were stopping your urine stream, but do it when youre not urinating. Tighten your rectum as if trying not to pass gas. Contract your anus, but dont move your buttocks. Helpful Hints Do your Kegels as often as you can. The more you do them, the faster youll feel the results. Pick an activity you do often as a reminder. For instance, do your Kegels every time you sit down. Tighten your pelvic floor before you sneeze, get up from a chair, cough, laugh, or lift. This protects your pelvic floor from injury and can help prevent urine leakage. Try to hold each Kegel for a slow count to five. You probably wont be able to hold them for thatlong at first, but keep practicing. It will get easier as your pelvic floor gets stronger. Eventually, special weights that you place in your vagina may be recommended to help make your Kegels even more effective. Bruno Patient Education Copyright 2009 - 2010 Bruno except where otherwise noted. Here are some helpful tips for your urinary incontinence: (This education is for all patients over 65 regardless of symptoms) Practice Kegel exercises Use the restroom every 2 hours throughout the day Limit caffeine, alcohol, spicy foods, and acidic foods Keep a bladder diary Limit fluid intake 3-4 hours before bed Lose weight Prevent constipation Take fluid pills at a time when can get to the bathroom quickly Control sugar better if diabetic Limit fluid intake to 60 oz. per day Any questions, please feel free to contact our office. documented in this encounter Progress Notes * Pat Hatfield, DO - 06/13/2024 10:01 AM EST Subjective: Rani England is a 68 year old female. Chief Complaint Patient presents with Medication Problem Dry mouth, discuss Dulera-sees pulm in [facility], foot/hand cramping x 1 yr, elevated bp, episode of tachy last Aug-saw cardiology, May 3 had tachy x 5 hrs Medication Administration Flu and/or Pneumo Inj HPI: Pt presents w/several different sx. C/o foot and hand cramping for the past year. Will occur when using hands, will last for a while. Has tried potassium and magnesium supplement. Also c/o dry mouth. BP was elevated during mammogram in [place]. Also elevated when in [place] but better today. [place]. Having episodes of tachycardia, saw cardiology in Aug - thought to be multifactorial. Went to the ER, no other concerning signs. Last month had an episode of tachycardia w/HR of 155 for about 5 hours. She was symptomatic, felt poorly during it, nauseous. Several sx can be sx of dulera. Has been on since November 2022 - after episode of covid followed by severe PNA, requiring O2. She stopped it in November 2022 but had a delayed asthma exacerbation after exercising. Recommended by pulm in [place] to continue at a low dose. Hasn't had an episode of asthma for 15 months. PHM: Patient Active Problem List Diagnosis Age-related osteoporosis without current pathological fracture History of papillary adenocarcinoma of thyroid Postsurgical hypothyroidism Asthma Current Outpatient Medications Medication Sig Dispense Refill [...] Wheezing, Dyspnea, Cough or Shortness of Breath. (Patient not taking: Reported on 06/13/2024) 18 g 5 predniSONE 10 MG Oral Tablet (Deltasone) Take 2 Tabs Daily in AM with meals x 5 days; then 1 Tab daily with meals x 5 days; then 1/2 tab daily with meals for 5 days, and STOP. RESCUE KIT (Patient nottaking: Reported on 06/13/2024) 18 Tablet 1 Azithromycin 500 MG Oral Tablet (Zithromax) Take 1 Tablet by mouth in the morning. RESCUE KIT. (Patient not taking: Reported on 06/13/2024) 5 Tablet 1 No current facility-administered medications for this visit. Past Medical History: Diagnosis Date Asthma Dysphagia Thyroid nodule Past Surgical History: Procedure Laterality Date COLONOSCOPY 03/17/2007 normal, repeat in 10 yrs. COLONOSCOPY, DIAGNOSTIC (RECTUM) 05/12/2017 adenomatous polyp, repeat 5 yrs/COLONOSCOPY FLEXIBLE PROXIMAL DIAGNOSTIC performed by Odilon Jules MD at [facility] COLONOSCOPY, DIAGNOSTIC (RECTUM) 05/29/2022 normal, repeat 5 yrs / COLONOSCOPY FLEXIBLE PROXIMAL DIAGNOSTIC performed by Annette Santos DO at 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 Physical Exam: General: alert, healthy, and no distress Ears: External ears normal, Canals clear, TM's Normal Nose: no mucosal erythema, no mucosal edema, no purulent discharge Oropharynx: no exudate, no erythema, lips, buccal mucosa, and tongue normal, and mucous membranes are moist Neck: supple, no adenopathy, no bruits, thyroid normal size, non-tender, without nodularity Heart: regular rate & rhythm, no gallops, and 3/6 systolic murmur Lungs: chest symmetric with normal AP diameter, no chest deformities noted, no chest wall tenderness, lungs clear to auscultation Abdomen: abdomen soft, non-tender, normal bowel sounds, and no masses or organomegaly Extremities: no joint deformities, effusion, or inflammation, no edema Pt w/several different sx, some of which may be related to medication but especially want to r/o arrhythmia given 5 hour episode of symptomatic tachycardia. Suspect SVT - check labs, EKG, zio; defer echo as had one last year but will refer to cardiology [place]. Change albuterol to xopenex though does not necessarily seem like this triggers tachycardia episodes. Respiratory status stable at baseline, gets exacerbations w/exertion/cold weather. Reasonable to decrease dulera to 1 puff daily then stop to see if sx worsen; discussed having albuterol on hand and use before and after exercise as MARCELA. Tachycardia (Primary) - Levalbuterol Tartrate 45 MCG/ACT Inhalation Aerosol (Xopenex HFA); Inhale 1 Puff by mouth every 4hours as needed for Wheezing. - BASIC METABOLIC PANEL; Future; Expected date: 06/13/2024 - MAGNESIUM; Future; Expected date: 06/13/2024 - FERRITIN; Future; Expected date: 06/13/2024 - IRON SCREEN, INCLUDING TIBC; Future; Expected date: 06/13/2024 - CBC WITH WBC DIFFERENTIAL; Future; Expected date: 06/13/2024 - EKG; Future; Expected date: 06/13/2024 - EXTERNAL EKG 8 TO 15 DAYS; Future; Expected date: 06/14/2024 - CARDIOLOGY REFERRAL OP Postsurgical hypothyroidism Stable, follows w/endo at [place] Moderate asthma with exacerbation, unspecified whether persistent - Levalbuterol Tartrate 45 MCG/ACT Inhalation Aerosol (Xopenex HFA); Inhale 1 Puff by mouth every 4hours as needed for Wheezing. Palpitations - CARDIOLOGY REFERRAL OP Risk and functional assessment Need for prophylactic vaccination and inoculation against influenza - INFLUENZA VAC., TRIVALENT, HD, PF, 65 AND ABOVE, 0.5 ML IM (FLUZONE HD) Screening for diabetes mellitus - HEMOGLOBIN A1C; Future; Expected date: 06/13/2024 I spent a total of 40-54 minutes (exact time 45 mins) on the date of service in preparation, delivery, and documentation of the care provided to Rani England excluding any time spent in the performance of separately billed services or time spent by another provider/QHP. Follow up: in 6 month(s). Pat Hatfield DO * Zulema Grayson RN - 06/13/2024 9:53 AM EST Urinary Incontinence Plan of Care Documentation: (This education is for all patients over 65 regardless of symptoms) Current medications reconciled. Patient encouraged to: Practice kegal exercises Provide education materials Use the restroom every 2 hours throughout the day Limit caffeine, alcohol, spicy foods and acidic foods Keep a bladder diary Limit fluid intake 3-4 hours before bed Lose weight Prevent constipation Take fluid pills at a time when you can get to the bathroom quickly Control sugar better if diabetic Limit fluid intake to 60 oz. per day Wear support stockings (TEDs)if you have edema Zulema Grayson RN 06/13/2024 PRE - ADMINISTRATION DOCUMENTATION Are you experiencing any cold symptoms or fever? No Have you had Guillain-Decatur Syndrome (an illness that causes paralysis) within the last 6 weeks? No Have you had the flu shot in the past? YES Have you ever had a reaction to the flu shot? No Zulema Grayson RN, 06/13/2024 9:58 AM Immunization Administration Documentation Time Out Procedure Performed: Yes Patient Identified (Ask Name/Date of ): Yes Does the patient have a fever greater than 101 degrees today? No Patient allergic to latex? No VFC Stock: No Immunization(s) verified: Yes, Immunization Name: Flu, VIS Sheet(s) given: Yes Verified Side and Site: Yes Verified Shot(s) with Parent(s)/Patient: Yes documented in this encounter Plan of Treatment Upcoming Encounters Date Type Department Care Team (Late st Contact Info) Description 06/15/2024 8:45 AM EST Office Visit [facility] [address] [place] [id number] Vaibhav Diaz MD [address] [place] [id number] 06/15/2024 10:15 AM EST [facility] [address] [place] [address] [facility] [address] [place] [address] 11/14/2024 10:00 AM EDT Office Visit Cardiology, [facility] [address] [place] [address] Bishnu Hatfield DO [address] [place] [address] Scheduled Orders Name Type Priority Associated Diagnoses Orde r Schedule BASIC METABOLIC PANEL Lab Routine Tachycardia Expected: 06/13/2024 (Approximate), Expires: 06/13/2025 MAGNESIUM Lab Routine Tachycardia Expected: 06/13/2024 (Approximate), Expires: 06/13/2025 FERRITIN Lab Routine Tachycardia Expected: 06/13/2024 (Approximate), Expires: 06/13/2025 IRON SCREEN, INCLUDING TIBC Lab Routine Tachycardia Expected: 06/13/2024 (Approximate), Expires: 06/13/2025 CBC WITH WBC DIFFERENTIAL Lab Routine Tachycardia Expected: 06/13/2024 (Approximate), Expires: 06/13/2025 EKG EKG Routine Tachycardia Expected: 06/13/2024 (Approximate), Expires: 07/13/2025 HEMOGLOBIN A1C Lab Routine Screening for diabetes mellitus Expected: 06/13/2024 (Approximate), Expires: 06/13/2025 EXTERNAL EKG 8 TO 15 DAYS Holter Routine Tachycardia Expected: 06/14/2024 (Approximate), Expires: 06/13/2025 Scheduled Procedures Name Priority Associated Diagnoses Date/Ti me COLONOSCOPY FLEXIBLE PROXIMAL DIAGNOSTIC Recall History of colon polyps Scheduled Referrals Name Type Priority Associated Diagnoses Orde r Schedule CARDIOLOGY REFERRAL OP Referral Within 10 days (routine) Tachycardia Palpitations Ordered: 06/13/2024 Health Maintenance Due Date Last Done Comments [...] D LEVEL ONCE IN A LIFETIME-USE SMARTSET# [id number] Completed 01/14/2022, 03/19/2017, 11/08/2014, Additional history exists [...] as of this encounter Visit Diagnoses Diagnosis Tachycardia- Primary Tachycardia, unspecified Postsurgical hypothyroidism Moderate asthma with exacerbation, unspecified whether persistent Palpitations Risk and functional assessment Screening for unspecified condition Need for prophylactic vaccination and inoculation against influenza Screening for diabetes mellitus documented in this encounter Care Teams Review Assistant Relationship Specialty Start Date End Date Pat Hatfield DO [address] [place] [address] PCP - General Family Medicine 11/28/20 documented as of this encounter
--- OUTSIDE RECORDS SUMMARY | 2024-08-09 08:10 | External Medical Summary ---
Author Name Unknown Address Unknown Organization K[facility] [address] [place] [address] Laboratory Report Ordering Provider Test Date Status [facility] 06/13/2024 11:13:01 Final Observation Date Value Abnormality Reference (Units ) Status Magnesium 06/13/2024 11:13:01 2.2 1.5-2.6 (m g/dL) Final Performing Location [facility] [address] [place] [address]
--- OUTSIDE RECORDS SUMMARY | 2024-08-09 08:10 | External Medical Summary ---
Author Name Unknown Address Unknown Organization [id number]:[facility] [place] [facility] [place] [address] Laboratory Report Ordering Provider Test Date Status [facility] 06/13/2024 11:13:01 Final Observation Date Value Abnormality Reference (Units ) Status BUN 06/13/2024 11:13:01 11 6-20 (mg/dL) Final Creatinine 06/13/2024 11:13:01 0.6 0.5-1.0 (mg/dL) Final Glomerular filtration rate/1.73 sq M.predicted [Volume Rate/Area] in Serum, Plasma or Blood by Creatinine-based formula (CKD-EPI) 06/13/2024 11:13:01 >90 >=60 (mL/min) Final eGFR is calculated based on the CKD-EPI 2020 equation. Sodium 06/13/2024 11:13:01 139 135-146 (m mol/L) Final Potassium 06/13/2024 11:13:01 4.8 3.5-5.1 (m mol/L) Final Cl 06/13/2024 11:13:01 101 98-107 (mm ol/L) Final CO2 06/13/2024 11:13:01 27 22-32 (mmo l/L) Final Anion gap 06/13/2024 11:13:01 11 7-15 (mmol /L) Final Glucose 06/13/2024 11:13:01 97 70-120 (mg /dL) Final Calcium 06/13/2024 11:13:01 9.4 8.4-10.2 ( mg/dL) Final Performing Location [facility] [place] [address]
--- OUTSIDE RECORDS SUMMARY | 2024-08-09 08:10 | External Medical Summary ---
Author Name Unknown Address Unknown Organization [id number]:[facility]ATORY [facility] [place] - [address] [place] [address] Laboratory Report Ordering Provider Test Date Status [facility] 06/13/2024 11:13:01 Final Observation Date Value Abnormality Reference (Units ) Status Iron 06/13/2024 11:13:01 109 33-151 (ug /dL) Final Iron-binding capacity 06/13/2024 11:13:01 330 250-425 (ug/dL) Final Transferrin Sat % 06/13/2024 11:13:01 33 15 -55 (%) Final Performing Location LAB[facility]ATORY [facility] [place] - [address] [place] [address]
--- OUTSIDE RECORDS SUMMARY | 2024-08-09 08:10 | External Medical Summary ---
Author Name Unknown Address Unknown Organization K0G:[facility] [address] - [address] [place] [address] Laboratory Report Ordering Provider Test Date Status [facility] 06/13/2024 11:13:01 Final Observation Date Value Abnormality Reference (Units ) Status SYNC LEUKOCYTES IN BLOOD BY AUTOMATED COUNT 06/13/2024 11:13:01 6.64 4.00-10.80 (K/uL) Final Segs 06/13/2024 11:13:01 59.8 40.0-75.0 (%) Final Lymphs % 06/13/2024 11:13:01 31.6 18.0-42.0 (%) Final Monos 06/13/2024 11:13:01 6.2 1.0-11.0 (%) Final Eosinophils 06/13/2024 11:13:01 2.1 0.0-6.0 (%) Final Basos 06/13/2024 11:13:01 0.3 0.0-2.0 (%) Final Absolute Segs 06/13/2024 11:13:01 3.97 1.80-7.70 (K/uL) Final Lymphs, absolute 06/13/2024 11:13:01 2.10 1.00-4.80 (K/ul) Final Monos, Abs 06/13/2024 11:13:01 0.41 0.00-1.10 (K/uL) Final Eos, Abs 06/13/2024 11:13:01 0.14 0.00-0.70 (K/uL) Final Basos, Abs 06/13/2024 11:13:01 0.02 0.00-0.20 (K/uL) Final Performing Location [facility] [address] [place] [address]
--- OUTSIDE RECORDS SUMMARY | 2024-08-09 08:10 | External Medical Summary ---
Author Name Unknown Address Unknown Organization K01:LABORATORY [facility] [place] - [address] [place] [address] Laboratory Report Ordering Provider Test Date Status [facility]SE 06/13/2024 11:13:01 Final Observation Date Value Abnormality Reference (Units ) Status Ferritin 06/13/2024 11:13:01 110 13-150 (ng /mL) Final Postmenopausal women have hi gher ferritin levels than pre-menopausal women. The above reference interval is based on pre-menopausal women. Performing Location [facility] - [address] [place] [address]
--- OUTSIDE RECORDS SUMMARY | 2024-08-09 08:10 | External Medical Summary ---
Author Name Unknown Address Unknown Organization K01:[facility] [place] - [address] [place] [address] Laboratory Report Ordering Provider Test Date Status [facility]SE 06/13/2024 11:13:01 Final Observation Date Value Abnormality Reference (Units ) Status HbA1C 06/13/2024 11:13:01 5.0 4.0-5.6 (% ) Final The use of HbA1c to monitor glycemic status is based on normal hemoglobin and HbA composition. This test should not be used in patients with abnormal hemoglobin that affects the half life of the red blood cell or the in vivo glycation rates. Glucose, estimated average 06/13/2024 11:13:01 97 <126 (mg/dL) Final Performing Location [facility] [place] [facility] [address] [facility] [address]
--- OUTSIDE RECORDS SUMMARY | 2024-08-09 08:10 | External Medical Summary | Summary of Care ---
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 Name Role Phone Pat Hatfield DO Primary Care Provider [phone] Reason for Referral * Evaluate & Treat - Unlimited Visits (Within 10 days (routine)) - Pending Review Specialty Diagnoses / Procedures Referred By Contact Referred To Contact Cardiovascular Medicine / Cardiology Diagnoses Tachycardia Palpitations Pat Hatfield DO [address] [place] [address] Phone: tel: fax: Referral ID Status Reason Start Date Expiration Date Visits Requested Visits Authorized [id number] Pending Review Specialty Services Required [phone] Question Answer Referral Priority Within 10 days (routine) Where should this appointment be scheduled? [facility] To which of the following clinics are you referring your patient? General Cardiology Clinic Reason for Visit * Reason Onset Date Comments Medication Problem Dry mouth, di scuss Dulera-sees pulm in [facility], foot/hand cramping x 1 yr, elevated bp, episode of tachy last Aug-saw cardiology, May 3 had tachy x 5 hrs Medication Administration 06/13/2024 Flu an d/or Pneumo Inj Encounter Details Date Type Department Care Team (Late st Contact Info) Description 06/13/2024 10:00 AM EST Office Visit [facility] [address] [place] [address] Pat Hatfiedl, DO [address] [place] [address] Tachycardia*; Postsurgical hypothyroidism; Moderate asthma with exacerbation, [...] PPD 03/24/2005,02/11/2005 Pneumococcal Conjugate Vacci ne, 20-valent ([id number]) 03/23/2022 Pneumococcal Polysaccharide PPV23 (Pneumovax) 12/03/2020 Seasonal [...] No 06/12/2024 Does the household have a [facility] source of income? (Household - for ages [...] throughout the day. Bruno Patient Education Copyright 2008 - 2010 [...] Problem Dry mouth, discuss Dulera-sees pulm in [facility], foot/hand cramping x 1 yr, elevated bp, episode of tachy last Aug-saw cardiology, May 04 had tachy x 5 hrs Medication Administration Flu and/or Pneumo Inj HPI: Pt presents w/several different sx. C/o foot and hand cramping for the past year. Will occur when using hands, will last for a while. Has tried potassium and magnesium supplement. Also c/o dry mouth. BP was elevated during mammogram in [place]. Also elevated when in [place] but better today. [place] [...] exacerbation after exercising. Recommended by pulm in [place] to continue at a low dose. Hasn't [...] performed by Odilon Jules MD at [facility] COLONOSCOPY, DIAGNOSTIC (RECTUM) 05/29/2022 normal, repeat 5 yrs / COLONOSCOPY FLEXIBLE PROXIMAL DIAGNOSTIC performed by Annette Santos DO at [facility] REMOVAL OF THYROID GLAND 03/16/2017 Thyroidectomy [...] OP Postsurgical hypothyroidism Stable, follows w/endo at [place] Moderate asthma with exacerbation, unspecified whether persistent [...] symptoms or fever? No Have you had Guillain-Wildwood Syndrome (an illness that causes paralysis) within [...] Description 06/13/2024 12:30 PM EST Laboratory Laboratory, [facility] [address] [place] [id number] [facility] [place] [address] Tachycardia; Screening for diabetes mellitus 06/15/2024 8:45 AM EST Office Visit Dermatology [facility] [address] [facility] [place] [address] Vaibhav Diaz MD [address] [facility] [place] [address] 06/15/2024 10:15 AM EST Immunization [facility] [address] [place] [address] Rigoberto Leone [facility] [address] [place] [address] 11/14/2024 10:00 AM EDT Office Visit Cardiology, [facility] [address] [place] [address] Bishnu Hatfield DO [address] [place] [address] Pending Results Name Type Priority Associated Diagnoses [...] for diabetes mellitus 06/13/2024 11:13 AM EST Scheduled Orders Name Type Priority Associated Diagnoses [...] D LEVEL ONCE IN A LIFETIME-USE SMARTSET# [id number] Completed 01/14/2022, 03/19/2017, 11/08/2014, Additional history exists [...] inoculation against influenza Screening for diabetes mellitus Tachycardia Tachycardia, unspecified Screening for diabetes mellitus documented in this encounter Care Teams Antichecking Iron Worker Relationship Specialty Start Date End Date Pat Hatfield DO [address] [place] [address] PCP - General Family Medicine 11/28/20 documented as of this encounter
[2024-08-09 08:25] LABS: Basophils # (auto) 0.06 K/uL (0.00-0.20); Basophils % (auto) 0.9 %; Eosinophils # (auto) 0.21 K/uL (0.00-0.50); Eosinophils % (auto) 3.3 %; Hematocrit (blood only) 38.2 % (37.0-47.0); Hemoglobin 12.8 g/dl (12.0-16.0); Immature Granulocytes # (auto) 0.01 K/uL (0.01-0.20); Immature Granulocytes % (auto) 0.2 %; Lymphocytes # (auto) 1.97 K/uL (1.20-3.40); Lymphocytes % (auto) 31.1 %; Mean Corpuscular Hemoglobin 29.6 pg (25.0-34.0); Mean Corpuscular Hgb Conc 33.5 g/dL (32.0-36.0); Mean Corpuscular Volume 88.2 fL (80.0-100.0); Mean Platelet Volume 9.7 fL (9.4-12.4); Monocytes # (auto) 0.47 K/uL (0.11-0.59); Monocytes % (auto) 7.4 %; Neutrophils # (auto) 3.62 K/uL (1.40-6.50); Neutrophils % (auto) 57.1 %; Platelet Count 285 K/uL (130-400); RDW Coefficient of Variation 12.6 % (11.5-14.5); RDW Standard Deviation 40.7 fL (36.4-46.3); Red Blood Count 4.33 M/uL (4.20-5.40); White Blood Count 6.34 K/ul (4.8-10.8)
[2024-08-09 08:27] VITALS: PULSE 57; O2SAT 97
[2024-08-09 08:29] LABS: BUN Creatinine Ratio 33.3 (10-20); Calcium 8.3 mg/dl (8.6-10.3); Creatinine Clr Calc Pharmacy 119.2 ml/min; Magnesium 1.9 mg/dl (1.7-2.4)
[2024-08-09 08:35] LABS: Troponin I High Sensitivity 5.1 pg/ml (0-14)
--- NOTE | 2024-08-09 08:45 | Cardiology Consultation ---
Date of Consultation August 09, 2024 Assessment & Plan (1) Atrial fibrillation/flutter: Plan Patient admitted with recurrent afib RVR. Diagnosed with Afib back in Jun 2024 and started on low dose metoprolol tartrate 12.5 mg BID and eliquis 5 mg BID at that time. She has had several episodes since that time, but mostly resolved within a few minutes/hours. this episode seemed to last longer, hence she came to the ER for evaluation. She converted to NSR with IV metoprolol and IV Cardizem. She reports compliance with Eliquis 5 mg BID. She is already scheduled to meet with EP at [facility] to discuss potential ablation. She is also considering ablation in [place] where she lives for 6 months out of the year. She has resting borderline sinus bradycardia limiting AV sagrario blocking agents. She currently is NSR/Sinus mikhail. Would continue metoprolol tartrate 12.5 mg BID. She was intolerant to toprol XL. Continue eliquis. Echo with stable findings. Continue treatment of underling sinus infection with antibiotics. we discussed taking an additional 1/2 tab of metoprolol at home for recurrent PAF. keep appt as scheduled with EP. No further cardiac testing warranted at this time. stable for discharge. Case discussed with Dr. Hatfield I spent a total of 60 minutes on the date of service in preparation, delivery, and documentation of the care provided to this patient, excluding any time spent in the performance of separately billed services. Za Briscoe PA-C Department of Cardiology, [facility] This chart was completed in part utilizing Speech Voice Recognition Software. Grammatical errors, random word insertions, pronoun errors, and incomplete sentences are an occasional consequence of this system due to software limitations, ambient noise, and hardware issues. Any formal questions or concerns about the content, text, or information contained within the body of this dictation should be directly addressed to the provider for clarification. Supervising Physician Co-Signing Physician Notes I have personally performed a history and physical examination on the patient. I have reviewed the advance practitioner's documentation, and I agree with, and take responsibility for the plan of care. 69-year-old female admitted due to symptomatic paroxysmal atrial fibrillation. Spontaneously converted to normal sinus rhythm overnight with addition of IV Lopressor and Cardizem. Remains in sinus bradycardia currently. Previously intolerant of Toprol-XL however tolerating low-dose metoprolol tartrate. Awaiting evaluation at [facility] for PVI ablation. Also considering pursuing evaluation with credit collections manager in [place] where she resides for 6 months of the year. Treatment options limited due to resting sinus bradycardia. Recommend continuing low-dose metoprolol tartrate and Eliquis. Instructed to take an additional 12.5 mg of metoprolol if she experiences recurrent episodes of symptomatic rapid atrial fibrillation. Discussed when to seek further medical attention in the ER. If patient experiences recurrent atrial fibrillation and returns to the ER, I would consider treatment with oral flecainide 200mg x 1 in a monitored setting to assess efficacy. Then proceed with "pill in pocket" treatment as outpatient. Avoid initiation of daily flecainide therapy due to resting bradycardia. Bishnu Hatfield DO, [facility] History of Present Illness Reason for Consultation: Afib Requesting Physician: [facility] Attending Physician: Dr. Hatfield History of Present Illness Patient is a 69 year old female who presented to [facility] last evening with sudden onset palpitations lasting several hours. Diagnosed with recurrent atrial fibrillation with rapid ventricular response. Treated with several doses of IV metoprolol and one dose IV Cardizem She converted to NSR around midnight and remains in sinus bradycardia currently She was recently diagnosed with PAF in Jun 2024 after complaining of palpitations and ZIO demonstrated episodes of PAF correlating with her symptoms. She was started on metoprolol tartrate 25 mg 1/2 tab BID and Eliquis at that time. She had f/u with cardiology at [facility] who attempted to transition her to metoprolol succinate but patient reports she felt very poorly and went back to taking metoprolol tartrate. She reduced evening dose to 1/4 tablet several weeks ago due to concerns for HR's in the 30-40's. However in the interim she developed febrile illness with worsening asthma symptoms due to respiratory virus. She reports her HR was trending higher with her respiratory medications and she resumed metoprolol tartrate 12.5 mg BID over the last week. Recently seen at PCP office for cough/sinus pressure and started on Augmentin several days ago. At time of consult this morning, patient resting in bed feeling well. Denies acute cardiac complaints. Interested in future ablation and has f/u with [facility]. she denies recent chest pain or dyspnea. No orthopnea, PND or edema. Hoping to go home today. Allergies Allergy/AdvReac Type Severity Reaction Status Date / Time doxycycline AdvReac Unknown possible Verified 12/09/23 10:50 cause of eosinophilic asthma Home Medications Medication Instructions Recorded Confirmed Type estradiol 0.01% (0.1 mg/gram) 1 g vaginal 2XWK #42.5 grams 12/09/23 08/09/24 Rx vaginal cream amoxicillin 875 mg-potassium 1 tab PO [facility] 08/08/24 08/08/24 History clavulanate 125 mg tablet mometasone-formoterol HFA 100 2 puff inhalation [facility] 08/08/24 08/09/24 History mcg-5 mcg/actuation aerosol inhaler (Dulera) apixaban 5 mg tablet (Eliquis) 5 mg PO [facility] 08/09/24 08/09/24 History azelastine 137 mcg (0.1 %) nasal 1 spray intranasal BID PRN Allergy 08/09/24 08/09/24 History spray Symptoms azithromycin 500 mg tablet 500 mg PO UD PRN RESCUE KIT 08/09/24 08/09/24 History cholecalciferol (vitamin D3) 50 50 mcg PO DAILY 08/09/24 08/09/24 History mcg (2,000 unit) tablet (Vitamin D3) levothyroxine 125 mcg tablet See Rx Instructions .Route .COMPLEX 08/09/24 08/09/24 History (Synthroid) melatonin 3 mg tablet 3 mg PO HS PRN Sleep 08/09/24 08/09/24 History metoprolol tartrate 25 mg tablet 12.5 mg PO AMHS 08/09/24 08/09/24 History mometasone 50 mcg/actuation HFA 1 inh inhalation UD 08/09/24 08/09/24 History aerosol inhaler (Asmanex HFA) prednisone 10 mg tablet 10 mg PO UD PRN RESCUE KIT 08/09/24 08/09/24 History vitamins A,C,H-qfvu-enmhyv 4,296 2 cap PO QAM 08/09/24 08/09/24 History mcg-226 mg-90 mg capsule (PreserVision AREDS) Patient History Medical History Cardiac murmur Nausea and vomiting after administration of anesthetic agent Presence of pessary Uterine prolapse History of COVID-19 Eosinophilic asthma Chronic hoarseness Rectocele Osteoporosis Temporomandibular joint disorder DVT (deep venous thrombosis) H/O therapeutic radiation Colon polyps Thyroid cancer Surgical History S/P hardware removal History of laryngoscopy History of total right hip replacement History of surgery on extremity S/P laparoscopic cholecystectomy (12/19/20) History of arthroscopy History of colonoscopy History of anesthesia reaction H/O hernia repair History of thyroid surgery S/P left knee surgery Family History Father No problems noted. Mother No problems noted. 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 How many Children do You have: 1 Feels Safe at Home: Yes Safety Concerns: Feels Safe At This Time Assistive Devices: None Review of Systems Review of Systems: All systems reviewed & are unremarkable except as noted in HPI & below Physical Exam Constitutional: WD/WN, vitals as above well developed; no acute distress Neck: trachea midline, no thyromegaly Respiratory: normal respiratory effort Auscultation: + wheezes Cardiovascular: Rate/Rhythm: regular rate and regular rhythm Heart Sounds: + murmur (II/ systolic murmur ) Extremities: no edema Gastrointestinal (Abdomen): normal bowel sounds, soft, nontender, no hepatosplenomegaly Musculoskeletal: no cyanosis or clubbing, extremities motor strength 5/5 Results & Data Vital Signs (Past 12 Hours) Vital Signs Temp Pulse Pulse Resp BP BP Pulse Ox 08/09/24 08:00 57 L 16 109/34 L 97 08/09/24 07:23 56 L 08/09/24 07:00 55 L 16 107/48 L 94 08/09/24 06:25 36.7 C 59 L 17 113/46 L 96 08/09/24 06:01 08/09/24 04:10 55 L 08/09/24 02:30 52 L 16 92/55 L 93 08/09/24 02:00 52 L 15 99/59 L 93 08/09/24 02:00 51 L 16 99/59 L 94 08/09/24 01:30 53 L 14 99/57 L 97 08/09/24 01:00 53 L 18 101/59 L 95 08/09/24 00:30 55 L 18 94/54 L 96 08/09/24 00:20 98 H 16 97/63 L 97 08/09/24 00:20 142 H 118/80 08/09/24 00:16 50 L 08/08/24 23:47 122 H 16 118/80 97 08/08/24 23:32 133 H 112/67 08/08/24 23:30 133 H 17 112/67 96 08/08/24 23:01 121 H 18 118/94 98 08/08/24 23:00 146 H 118/94 08/08/24 22:52 127 H 16 123/56 L 98 08/08/24 22:48 100 08/08/24 22:48 127 H 16 98 08/08/24 22:48 08/08/24 22:46 123 H 18 97 08/08/24 22:44 136 H 112/73 08/08/24 22:35 142 H 08/08/24 22:20 36.5 C 103 H 16 130/61 97 Pulse Ox O2 Del Method O2 Del Method 08/09/24 08:00 Room Air 08/09/24 07:23 08/09/24 07:00 Room Air 08/09/24 06:25 Room Air 08/09/24 06:01 94 Room Air 08/09/24 04:10 08/09/24 02:30 Room Air 08/09/24 02:00 Room Air 08/09/24 02:00 Room Air 08/09/24 01:30 Room Air 08/09/24 01:00 Room Air 08/09/24 00:30 Room Air 08/09/24 00:20 Room Air 08/09/24 00:20 08/09/24 00:16 08/08/24 23:47 Room Air 08/08/24 23:32 08/08/24 23:30 Room Air 08/08/24 23:01 Room Air 08/08/24 23:00 08/08/24 22:52 Room Air 08/08/24 22:48 Room Air 08/08/24 22:48 08/08/24 22:48 Room Air 08/08/24 22:46 Room Air 08/08/24 22:44 08/08/24 22:35 08/08/24 22:20 Room Air Laboratory Results Cardiac Enzymes 08/08/24 08/08/24 08/09/24 Range/Units 22:40 23:50 07:32 AST TNP 22 Troponin I High Sens 4.5 5.1 (0-14) pg/ml Coagulation 08/08/24 08/09/24 Range/Units 22:40 01:00 PT Cancelled 10.2 APTT Cancelled 29 CBC 08/08/24 08/09/24 Range/Units 22:40 07:32 WBC 9.06 6.34 (4.8-10.8) K/ul RBC 4.75 4.33 (4.20-5.40) M/uL Hgb 14.2 12.8 (12.0-16.0) g/dl Hct 41.5 38.2 (37.0-47.0) % Plt Count 308 285 (130-400) K/uL Neut # (Auto) 4.99 3.62 (1.40-6.50) K/uL Lymph # (Auto) 2.88 1.97 (1.20-3.40) K/uL [place] # (Auto) 0.73 H 0.47 (0.11-0.59) K/uL Eos # (Auto) 0.36 0.21 (0.00-0.50) K/uL Baso # (Auto) 0.08 0.06 (0.00-0.20) K/uL Comprehensive Metabolic Panel 08/08/24 08/08/24 08/09/24 Range/Units 22:40 23:50 07:32 Sodium TNP 140 140 Potassium TNP 4.1 4.0 Chloride 103 108 H (98-107) mmol/L Carbon Dioxide 28 27 (21-32) mmol/L BUN 12 14 (6-23) mg/dl Creatinine 0.53 L 0.42 L (0.6-1.2) mg/dl Glucose 98 100 H (70-99(Fasting)) mg/dl Calcium 9.0 8.3 L (8.6-10.3) mg/dl AST TNP 22 ALT 21 (7-52) U/L Alkaline Phosphatase TNP 73 Total Protein 7.9 7.0 (6.0-8.3) gm/dl Albumin TNP 3.9 Intake and Output 08/08/24 08/09/24 08/09/24 22:59 06:59 14:59 Intake Total 500 / 500 Balance 500 / 500 Intake: IV 500 / 500 Sodium Chloride 0.9% 500 ml @ 500 / 500 999 mls/hr IV .Q31M ONE Rx#: [id number] Other: Weight 67.3 kg 67.3 kg Weight Measurement Method Chair Scale Built in [facility] Diagnostic Findings Telemetry reviewed: NSR/Sinus bradycardia in the 50-60's. She converted from atrial fibrillation around midnight last night EKG on arrival: Atrial flutter with variable AV block ST depression in inferior and lateral leads Repeat EKG this morning: Sinus bradycardia at [address] depression resolved Sinus has replaced atrial flutter Echo report reviewed: Compared with prior study, no significant changes noted LVEF at 60-65% LA size is normal Aortic valve sclerosis is mild without significant aortic valvular stenosis. mild TR no pulm hypertension Chest X-Ray 08/08/24 22:37 IMPRESSION: 1. No acute pathology is detected. Electronically signed by Otilio Rodriguez 08-09-2024 01:14 AM ZIO monitor report reviewed dated Jun 2024: CONCLUSIONS: Duration: 13 days, 1 hour Patient had a min HR of 45 bpm, max HR of 219 bpm, and avg HR of 67 bpm. Predominant underlying rhythm was Sinus Rhythm. 5 Supraventricular Tachycardia runs occurred, the run with the fastest interval lasting 5 beats with a max rate of 164 bpm, the longest lasting 9 beats with an avg rate of 155 bpm. Atrial Fibrillation occurred (1% burden), ranging from 116-219 bpm (avg of 151 bpm), the longest lasting 4 hours 0 mins with an avg rate of 151 bpm. Atrial Fibrillation was detected within +/- 45 seconds of symptomatic patient event(s). Isolated SVEs were rare (<1.0%), SVE Couplets were rare (<1.0%), and SVE Triplets were rare (<1.0%). Isolated VEs were rare (<1.0%, 106), VE Couplets were rare (<1.0%, 5), and VE Triplets were rare (<1.0%, 1). Ventricular Trigeminy was present. Symptoms correlate with paroxysmal atrial fibrillation and rapid ventricular response. Ordering provider notified of results via staff message. Outpatient echo from September 2022: SUMMARY: 1. Normal left ventricular systolic function, with an ejection fraction of 69 %. 2. Normal right ventricular size and systolic function. 3. No significant valvular abnormalities. 4. No prior echocardiogram available for comparison. Medications Administered Current Inpatient Medications Acetaminophen (Acetaminophen 325 Mg Tab) 650 mg PO Q4H PRN PRN Reason: Pain or Fever Stop: 09/08/24 06:00 Amoxicillin/Clavulanate Potassium (Amoxicillin/Clavulanate 875 Mg Tab) 1 tab PO BID [facility]; Protocol Stop: 08/18/24 08:59 Last Admin: 08/09/24 11:13 Dose: 1 tab Apixaban (Apixaban 5 Mg Tablet) 5 mg PO BID [facility] Stop: 09/08/24 08:59 Last Admin: 08/09/24 08:02 Dose: 5 mg Azelastine HCl (Azelastine Hcl 0.1% Nasal 200 Sprays/27,400 Mcg Btl) 1 sprays NA BID PRN PRN Reason: Allergy Symptoms Stop: 09/08/24 06:00 Fluticasone/Vilanterol (Fluticasone/Vilanterol 100/25mcg 14 Puffs/Inhaler) 1 puffs INH DAILY [facility] Stop: 09/08/24 08:59 Last Admin: 08/09/24 08:23 Dose: Not Given Levothyroxine Sodium (Levothyroxine Sodium 125 Mcg Tablet) 62.5 mcg PO Garcia@0630 [facility] Stop: 09/12/24 06:29 Levothyroxine Sodium (Levothyroxine Sodium 125 Mcg Tablet) 125 mcg PO MoTuWeThFrSa@0630 [facility] Stop: 09/08/24 06:29 Last Admin: 08/09/24 06:55 Dose: Not Given Melatonin (Melatonin 3 Mg Tab) 3 mg PO HS PRN PRN Reason: Sleep Stop: 09/08/24 06:00 Metoprolol Tartrate (Metoprolol Tartrate 25 Mg Tab) 12.5 mg PO BID [facility] Stop: 09/08/24 08:59 Last Admin: 08/09/24 08:03 Dose: Not Given Metoprolol Tartrate (Metoprolol Tartrate 1 Mg/Ml Vial) 5 mg IV Q6 PRN PRN Reason: Tachycardia Stop: 09/08/24 06:00 Multivitamins/Minerals (Cerovite Adv Formula Tab) 1 tab PO QAM NEPTALI Stop: 09/08/24 08:59 Last Admin: 08/09/24 08:20 Dose: Not Given Nitroglycerin (Nitroglycerin Sl 0.4 Mg/Tab Tab) 0.4 mg SL Q5M PRN PRN Reason: Chest Pain Stop: 09/08/24 06:00 Polyethylene Glycol (Polyethylene (Miralax) 17 Gm Pack) 17 gm PO DAILY PRN PRN Reason: Constipation Stop: 09/08/24 06:00 Vitamin D (Cholecalciferol 25 Mcg (1000 Units) Tab) 50 mcg PO DAILY [facility] Stop: 09/08/24 08:59 Last Admin: 08/09/24 08:19 Dose: Not Given
[2024-08-09] MEDS: AMOXICILLIN/CLAVULANATE 875 MG TAB PO SCH (11:13)
--- NOTE | 2024-08-09 14:13 | Discharge Summary ---
Date of Service August 09, 2024 Admission HPI Per Admitting Provider 69-year-old female with past medical history significant for papillary thyroid carcinoma, postsurgical hypothyroidism, asthma, paroxysmal atrial fibrillation presents with rapid A-fib. Patient recently diagnosed with A-fib. She is on metoprolol 12.5 mg twice daily and on Eliquis. She was recently in [place] when she was walking her heart rate was in 30s so she called her industrial paramedic and was advised to reduce the dose of metoprolol. So she was taking metoprolol her usual dose in the morning but in the nighttime she was taking 6.25 mg. She took it for 3 days. And she developed sinus symptoms and her asthma was acting up and she was using Dulera which can increase heart rate so she back on metoprolol 12.5 twice daily. She just came back from [place]. She was also started on Augmentin for sinusitis and she took 3 doses and her sinusitis seem to be improving. Today patient noticed her heart was racing fast and was feeling dizzy and monitor on the the watch showed that she was in rapid A-fib and came to the ER. In the ER she was given 3 dose of IV Lopressor 5 mg and and got 1 dose of IV Cardizem then she converted to sinus rhythm. Currently resting comfortably. Hemodynamically stable. Denies any headache. Has some runny nose and sore throat from her sinusitis. Denies any chest pain or shortness of breath. No fevers. No nausea. No abdominal pain. Appetite is okay. Normal bowel and bladder movements. Was ambulating okay. Past medical history. As mentioned above Past surgical history. Colonoscopy. Thyroidectomy. Tonsillectomy. Left knee meniscectomy. Inguinal hernia repair bilateral. Family significant breast cancer. Thyroid disease. Rheumatoid arthritis. Social history. No smoking. Alcohol occasional. Admission Exam Per Admitting Provider General-Not in distress. Head- atraumatic Eyes- PERRL. ENT- oropharynx clear Neck- supple, no JVD. Lungs- clear to auscultation no wheezing or crackles. Heart- regular rate and rhythm; no murmur, no gallop Abdomen- normal bowel sounds, soft, nontender, no distension Extremities- no pretibial edema, no erythema seen. Neuro- alert, oriented PERRL, no facial palsy; no dysarthria; moves extremities Principal Diagnosis Rapid atrial fibrillation/flutter Discharge Exam General-Not in distress. Head- atraumatic Eyes- PERRL. ENT- oropharynx clear Neck- supple, no JVD. Lungs- clear to auscultation no wheezing or crackles. Heart- regular rate and rhythm; no murmur, no gallop, HR In high 50s. Abdomen- normal bowel sounds, soft, nontender, no distension Extremities- no pretibial edema, no erythema seen. Neuro- alert, oriented PERRL, no facial palsy; no dysarthria; moves extremities Discharge Data Allergies Allergy/AdvReac Type Severity Reaction Status Date / Time doxycycline AdvReac Unknown possible Verified 12/09/23 10:50 cause of eosinophilic asthma Consultations 08/08/24 23:55 ED Decision to Admit Stat 08/09/24 08:00 Consult Cardiology Routine Hospital Course (1) Atrial fibrillation/flutter: Per prior attending with addendum: 69-year-old female with past medical history significant for papillary thyroid carcinoma, postsurgical hypothyroidism, asthma, paroxysmal atrial fibrillation presents with rapid A-fib. Patient recently diagnosed with A-fib. She is on metoprolol 12.5 mg twice daily and on Eliquis. She was recently in [place] when she was walking her heart rate was in 30s so she called her industrial paramedic and was advised to reduce the dose of metoprolol. So she was taking metoprolol her usual dose in the morning but in the nighttime she was taking 6.25 mg. She took it for 3 days. And she developed sinus symptoms and her asthma was acting up and she was using Dulera which can increase heart rate so she back on metoprolol 12.5 twice daily. She just came back from [place]. She was also started on Augmentin for sinusitis and she took 3 doses and her sinusitis seem to be improving. Today patient noticed her heart was racing fast and was feeling dizzy and monitor on the the watch showed that she was in rapid A-fib and came to the ER. In the ER she was given 3 dose of IV Lopressor 5 mg and and got 1 dose of IV Cardizem then she converted to sinus rhythm. Currently resting comfortably. Hemodynamically stable. Denies any headache. Has some runny nose and sore throat from her sinusitis. Denies any chest pain or shortness of breath. No fevers. No nausea. No abdominal pain. Appetite is okay. Normal bowel and bladder movements. Was ambulating okay. Rapid A-fib/flutter Got 3 dose of IV Lopressor 5 mg and 1 dose of 10 mg IV Cardizem in the ER Currently converted to sinus rhythm Will continue home metoprolol 12.5 p.o. twice daily and Eliquis 5 mg twice daily IV Lopressor as needed Will follow serial enzymes and echo Cardial consult for further recommendations Sinusitis Continue Augmentin Postsurgical hypothyroidism On Synthyroid TSH is okay DVT prophylaxis On Eliquis Disposition Telemetry Full code. Addendum 08/09/2024: Patient seen and examined at bedside as a follow-up of rapid A-fib/flutter. Patient is also being treated with Augmentin for sinusitis. Cardiology evaluated the patient, appreciate recommendation. Patient has been converted back to normal sinus rhythm, denies any other symptoms, denies any chest pain or shortness of breath. Patient reports improving sinusitis, patient advised to continue her prior to arrival antibiotic treatments. She is being discharged with following instructions at the point of discharge: Follow-up with your primary care physician within a week time and likely you will need labs CBC/CMP/magnesium/phosphorus. You were evaluated for atrial fibrillation/flutter with rapid ventricular response. Cardiology evaluated you. Continue with your metoprolol tartrate 12.5 Mg twice a day and your Eliquis. Follow-up with cardiology as prior upon discharge.You can take additional half tablet of metoprolol at home for recurrent PAF. Keep your appointment with your EP as scheduled. Continue your antibiotic treatment for sinusitis as prescribed prior to arrival. Take your medications as prescribed. Please make sure that you are able to get your medications today by calling your pharmacy before you leave the hospital so that your treatment continuity is not broken. Total time spent: 35 min. Home Health Attestation I certify that this patient is under my care and that I, or a physicians assistant production editor working with me, had a face to-face encounter that meets the home health [id number] encounter requirements with this patient. The encounter with the patient was in whole, or in part, for the following medical condition, which is the primary reason for home health care (list medical condition): I certify that, based on my findings, the following services are medically necessary home health services: My clinical findings support the need for the above services because: Further, I certify that my clinical findings support that this patient is homebound (i.e. absences from home require considerable and taxing effort and are for medical reasons or [employer] services or infrequently or of short duration when for other reasons) because: Certification for Home Health Services: Based on the above findings, I certify that this patient is confined to the home and needs intermittent nursing home care, physical therapy and/or speech therapy or continues to need occupational therapy. The patient is under my care, and I have initiated the establishment of the plan of care. This patient will be followed by a physician who will periodically review the plan of care. Total Time Total Time Spent Total Time Spent (In Minutes): 35 Discharge Plan Discharge Items Patient Disposition: Home - Self-Care Reason For Visit: RAPID A-FIB Discharge Diagnosis: Rapid atrial fibrillation/flutter Condition on Discharge: Good Activity: Resume your previous activity Non-emergency contact: Primary Care Provider Call non-emergency contact if: you have any medication questions, your symptoms worsen and your temperature is above 101 Follow-up/Referrals: Pat Hatfield, [Primary Care Provider] - Diet: Heart Healthy Addtl Attending Provider Instructions: Follow-up with your primary care physician within a week time and likely you will need labs CBC/CMP/magnesium/phosphorus. You were evaluated for atrial fibrillation/flutter with rapid ventricular response. Cardiology evaluated you. Continue with your metoprolol tartrate 12.5 Mg twice a day and your Eliquis. Follow-up with cardiology as prior upon discharge.You can take additional half tablet of metoprolol at home for recurrent PAF. Keep your appointment with your EP as scheduled. Continue your antibiotic treatment for sinusitis as prescribed prior to arrival. Take your medications as prescribed. Please make sure that you are able to get your medications today by calling your pharmacy before you leave the hospital so that your treatment continuity is not broken. Pending Studies at Discharge: No Stand-Alone Forms: [employer], Smoking Cessation Medications and DC Order Prescriptions: Continued estradiol 0.01 % (0.1 mg/gram) cream 1 g PV 2XWK Qty: 42.5 3RF Rx Instructions: Wednesday and amoxicillin-pot clavulanate 875-125 mg tablet 1 tab PO [facility] Rx Instructions: take for 10 days starting 08/07/24 ending 08/17/24 Dulera 100-5 mcg/actuation HFA aerosol inhaler 2 puff INHALATION [facility] azelastine 137 mcg (0.1 %) spray,non-aerosol 1 spray INTRANASAL BID PRN (Reason: Allergy Symptoms) metoprolol tartrate 25 mg tablet 12.5 mg PO [facility] Asmanex HFA 50 mcg/actuation HFA aerosol inhaler 1 inh INHALATION UD Rx Instructions: new order and has not picked up from pharmacy yet PreserVision AREDS 4,296 mcg-226 mg-90 mg Capsule 2 cap PO QAM Eliquis 5 mg tablet 5 mg PO [facility] cholecalciferol (vitamin D3) [Vitamin D3] 50 mcg (2,000 unit) Tablet 50 mcg PO DAILY levothyroxine [Synthroid] 125 mcg tablet See Rx Instructions .ROUTE .COMPLEX Rx Instructions: 1 tablet daily Wed-Wed, 1/2 tablet on sundays BRAND SPECIFIC melatonin 3 mg Tablet 3 mg PO HS PRN (Reason: Sleep) prednisone 10 mg tablet 10 mg PO UD PRN (Reason: RESCUE KIT) Rx Instructions: TAKE 2 TABLETS IN AM WITH MEALS X 5 DAYS, THEN 1 TABLET DAILY WITH MEALS X 5 DAYS, THEN 1/2 TABLET DAILY WITH MEAL FOR 5 DAYS, THEN STOP azithromycin 500 mg tablet 500 mg PO UD PRN (Reason: RESCUE KIT) Discharge Orders: Discharge Order (Routine); Ordered 08/09/24 Ordered By: Quan Lira Admission Data Admit Date/Time: 08/09/24 05:03 Attending Provider: Quan Lira Admit Provider: Byron Chandler Primary Care Provider: Pat Hatfield Other Providers: Byron Chandler; Bishnu Hatfield
[2024-08-09 14:21] VITALS: BP 135/58
--- NOTE | 2024-08-10 06:56 | Electrocardiogram Report ---
Test Reason : Blood Pressure : */* mmHG Vent. Rate : 136 BPM Atrial Rate : 300 BPM P-R Int : * ms QRS Dur : 80 ms QT Int : 270 ms P-R-T Axes : 184 -14 -27 degrees QTcB Int : 406 ms Atrial fibrillation with premature ventricular or aberrantly conducted complexes Nonspecific ST and T wave abnormality Abnormal ECG When compared with ECG of 10-Feb-2021 11:19, Atrial fibrillation has replaced Sinus rhythm Vent. rate has increased by 71 bpm Confirmed by Patrick Powell ([id number]) on 08/10/2024 6:56:23 AM Referred By: REFERRED SELF Confirmed By: Patrick Powell
--- NOTE | 2024-08-10 06:58 | Electrocardiogram Report ---
Test Reason : Blood Pressure : */* mmHG Vent. Rate : 53 BPM Atrial Rate : 53 BPM P-R Int : 142 ms QRS Dur : 76 ms QT Int : 426 ms P-R-T Axes : 40 5 20 degrees QTcB Int : 399 ms Sinus bradycardia Otherwise normal ECG When compared with ECG of 08-Aug-2024 22:29, (unconfirmed) Sinus rhythm has replaced Atrial fibrillation Vent. rate has decreased by [address] no longer depressed in Lateral leads Nonspecific T wave abnormality, improved in Inferior leads Confirmed by Patrick Powell ([id number]) on 08/10/2024 6:58:37 AM Referred By: REFERRED SELF Confirmed By: Patrick Powell
[2024-08-13] MEDS ORDERED: LEVOTHYROXINE SODIUM 125 MCG TABLET PO SCH (06:30)
== END 2024-08-09 14:37 | disposition home or self-care (01) | DRG 310 ==
LOC: ED 22:18 → EDINP 08-09 05:03 → INTOOBSV 08-09 05:03 → SUATTDRO 08-09 05:03 → EDINP 08-09 06:01